=== PATIENT | male | born 1965 | race Caucasian/White ===

== ENCOUNTER 2022-01-18 14:39 | Emergency (ER) | payer BC, SELFPAY ==
[2022-01-18 14:40] VITALS: BP 178/105; PULSE 87; RESP 18; TEMP 37.1; O2SAT 98; BMI 31.1
--- NOTE | 2022-01-18 14:50 | XR_ITS ---
PROCEDURE INFORMATION: Exam: XR Chest Exam date and time: 01/18/2022 2:49 PM Age: 56 years old Clinical indication: Injury or trauma; Fall; Blunt trauma (contusions or hematomas); Patient HX: Patient fell yesterday due to difficulty ambulating caused by prior stroke. Left rib pain. TECHNIQUE: Imaging protocol: XR of the chest. Views: 2 views. COMPARISON: No relevant prior studies available. FINDINGS: Lungs: Nodular density superimposed upon the mid to lower thoracic spine in the region of the lower lobe. This measures approximately 6.5 mm in maximum dimensions. Although findings may correspond to a vessel seen on end, a pulmonary nodule could not be entirely excluded. Pleural spaces: Unremarkable. No pleural effusion. No pneumothorax. Heart/Mediastinum: Unremarkable. No cardiomegaly. Bones/joints: No evidence of acute osseous injury or significant degenerative change. IMPRESSION: 1. Nodular density superimposed upon the mid to lower thoracic spine. Findings may correspond to a vessel seen on end. A pulmonary nodule could not be excluded. 2. No evidence of acute intraparenchymal abnormality. 3. Recommend comparative review with previous radiographs.
--- NOTE | 2022-01-18 14:50 | XR_ITS ---
PROCEDURE INFORMATION: Exam: XR Left Ribs with PA Chest Exam date and time: 01/18/2022 2:49 PM Age: 56 years old Clinical indication: Injury or trauma; Fall; Rib area, left side; Blunt trauma; Patient HX: Patient fell yesterday due to difficulty ambulating due to prior stroke. Left rib pain. TECHNIQUE: Imaging protocol: XR Left ribs with PA chest. Views: 3 views COMPARISON: No relevant prior studies available. FINDINGS: Lungs: Unremarkable. No consolidation. Pleural spaces: Unremarkable. No pleural effusion. No pneumothorax. Heart/Mediastinum: Unremarkable. No cardiomegaly. Bones/joints: Unremarkable. IMPRESSION: No acute findings.
[2022-01-18 15:11] VITALS: BP 160/90; PULSE 87; RESP 18; O2SAT 98; BMI 31.1
--- NOTE | 2022-01-18 15:18 | HMH.EDUTC ---
[facility] [place] Disposition Clinical Impression: Rib contusion Qualifiers: Encounter type: initial encounter Laterality: left Qualified Code(s): S20.212A - Contusion of left front wall of thorax, initial encounter Disposition: Home, Self-Care Condition on Discharge: Good Instructions: DI for Rib Contusion, Ibuprofen Additional Instructions: *Ibuprofen catarina 6 hours with meal as needed for pain/inflammation if your doctor has said that you can take it *Not additional anti-inflammatory like motrin, aleve, advil with the above amount of ibuprofen. You can still take Tylenol every 4 hours as needed if you need something else for pain *Ice 20 minutes every 2 hours for the first 48 hours after the initial injury followed by moist heat every 20 minutes 3-4 times a day to affected area *Keep this area active, no movement leads to more stiffness, However take it easy and avoid heavy lifting pushing or pulling *Follow up with you family doctor if no improvement for further treatment Over the counter lidocaine patches may help with pain and discomfort Make sure to follow up with your Family Doctor for further evaluation and repeat chest xray Straight to ER if any life threatening symptoms Referrals: Provider,Sandra, [Primary Care Provider] - Sid Hugo MD [Physician] - Time of Disposition: 16:00 Medical Decision Making - Kane Inquiry Pt receiving controlled substance: No Kane was queried for this patient: No Vital Signs: 01/18/22 14:40 01/18/22 15:11 01/18/22 16:01 Temperature 98.7 F 98.7 F Temperature Source Oral Pulse Rate 87 Pulse Rate [Radial] 87 87 Respiratory Rate 18 18 18 Blood Pressure 135/80 Blood Pressure [Right Arm] 178/105 H 160/90 H Blood Pressure Mean [Right Arm] 129 113 02 Sat by Pulse Oximetry 98 98 Oxygen Delivery Method Room Air - Radiology Data #1 Image(s): Other (left ribs with chest) Image Reviewed: Yes I have reviewed radiologist's interpretation IMPRESSION: No acute findings. #2 Image(s): Chest Image Reviewed: Yes I have reviewed radiologist's interpretation IMPRESSION: 1. Nodular density superimposed upon the mid to lower thoracic spine. Findings may correspond to a vessel seen on end. A pulmonary nodule could not be excluded. 2. No evidence of acute intraparenchymal abnormality. 3. Recommend comparative review with previous radiographs. Medical Decision Narrative: Discussed with patient about transfer to the ED for CT of chest to R/O pulmonary nodule and patient declined states that he didnt have time today State that he will follow up for further testing and evaluation with PCP or get a new PCP that is local [facility] [place] HPI - General Stated complaint: AO 5 fall lt rib pain Time Seen by Provider: 01/18/22 15:19 Mode of Arrival: Ambulatory Source of Information: Patient Limitations: No Limitations Description of Symptoms (Recalled from Triage Doc. by RN): pt says that he fell down trying to go down steps and fell hitting a flower pot on the way down. he is complaining of left rib pain HEENT Symptoms (Recalled from RN notes): No Resp Symptoms (Recalled from RN notes): No Skin Symptoms (Recalled from RN notes): No MS Symptoms (Recalled from RN notes): Yes Functional Status (Recalled from RN notes): wnl - History of Present Illness Provider Complaint: Patient states that yesterday he was coming down the steps and he has been off balanced since having a stroke and he fell States that he hit his left ribs on a flower pot States that ever since he has been having pain in his left ribs when he moves or takes a deep breath so today when he was still having pain he came in Denies loc denies any other injury - Related Data Allergies Allergy/AdvReac Type Severity Reaction Status Date / Time No Known Allergies Allergy Verified 01/18/22 15:19 - Worker's Comp Is this a Worker's Comp case?: No [facility] History - Hepatitis A Screen Attestation statement:
[2022-01-18 16:01] VITALS: BP 135/80; PULSE 87; RESP 18; TEMP 37.1
== END 2022-01-18 16:03 | disposition home or self-care (01) ==
PROVIDERS: Emergency Provider Nurse Practitioner
DX: S20.212A Contusion of left front wall of thorax, initial encounter (principal); R07.81 Pleurodynia; Z86.73 Personal history of transient ischemic attack (TIA), and cerebral infarction without residual deficits; W10.9XXA Fall (on) (from) unspecified stairs and steps, initial encounter
CPT/HCPCS: 71046; 71101; 99213; G0463

== ENCOUNTER → 2022-04-07 06:17 | Outpatient (CLI) | payer BC, SELFPAY ==
[2022-04-06 18:27] LABS: Basophils # 0.2 K/mm3 (0-0.2); Basophils % 1.8 % (0.1-2.0); Eosinophils # 0.3 K/mm3 (0.0-0.4); Eosinophils % 2.7 % (0.1-12.0); Hematocrit 49.4 % (42.0-52.0); Hemoglobin 17.4 g/dL (14.1-18.0); Lymphocytes # 3.1 K/mm3 (0.7-4.5); Lymphocytes % 28.2 % (10-50); Mean Corpuscular HGB Conc 35.2 g/dL (31.8-35.4); Mean Corpuscular Hemoglobin 31.6 pg (27.0-31.2); Mean Corpuscular Volume 89.7 fl (80-94); Mean Platelet Volume 8.6 fl (7.4-10.4); Monocytes # 0.9 K/mm3 (0.1-1.0); Monocytes % 7.7 % (1.7-9.3); Neutrophils # 6.6 K/mm3 (1.8-7.8); Neutrophils % 59.6 % (37.0-80.0); Platelet Count 300 K/mm3 (142-424); Red Cell Distribution Width 13.5 % (11.5-17.5)
[2022-04-06 18:33] LABS: Alanine Aminotransferase 34 U/L (12-78); Albumin Level 4.2 g/dl (3.5-5.0); Albumin/Globulin Ratio 1.3 (1.1-1.8); Alkaline Phosphatase 93 U/L (38-126); Anion Gap 9.6 mEq/L (5-15); Aspartate Amino Transferase 33 U/L (17-59); Bilirubin,Total 0.5 mg/dl (0.2-1.3); Blood Urea Nitrogen 12 mg/dl (9-20); Calcium 9.9 mg/dl (8.4-10.2); Carbon Dioxide 31 mmol/L (22.0-30.0); Chloride 101 mmol/L (98-107); Chol/HDL Ratio 5.4 (1-3.5); Cholesterol 179 mg/dl (140-200); Estimated Glomerular Filt Rate 88 ml/min (>60); GFR (African American) 106 ML/MIN (>60); Globulin 3.2 g/dL (1.3-3.2); Glucose 134 mg/dl (74-100); HDL Cholesterol 33 mg/dl (40-60); Potassium 4.6 mmoL/L (3.5-5.1); Sodium 137 mmol/L (136-145); Total Protein,Serum 7.4 g/dl (6.3-8.2); Triglycerides 223 mg/dl (30-150); VLDL Cholesterol 45 mg/dL (0-40)
[2022-04-06 18:44] LABS: Direct LDL Cholesterol 108.47 mg/dL (100-129)
[2022-04-06 18:50] LABS: 25-OH Vitamin D, Total 21.1 ng/mL (30-100)
[2022-04-06 18:51] LABS: Free T4 (Free Thyroxine) 1.12 ng/dl (0.78-2.19)
[2022-04-06 19:04] LABS: Prostate Specific Ag Screen 2.1 ng/ml (0.0-4.0); Thyroid Stimulating Hormone 2.24 uIU/mL (0.465-4.68)
== END ==
PROVIDERS: PCP Emergency Medicine; Visit Provider Emergency Medicine
DX: I10 Essential (primary) hypertension (principal); E55.9 Vitamin D deficiency, unspecified; Z79.899 Other long term (current) drug therapy; Z12.5 Encounter for screening for malignant neoplasm of prostate
CPT/HCPCS: 80053; 80061; 82306; 84439; 84443; 85025; G0103

== ENCOUNTER → 2022-04-16 13:42 | Outpatient (CLI) | payer BC, SELFPAY ==
[2022-04-16 15:12] LABS: Hemoglobin A1C 5.6 % (4.0-6.0)
== END ==
PROVIDERS: PCP Emergency Medicine; Visit Provider Emergency Medicine
DX: R73.09 Other abnormal glucose (principal)
CPT/HCPCS: 36415; 83036

== ENCOUNTER → 2022-07-15 08:50 | Outpatient (CLI) | payer BC, SELFPAY ==
--- NOTE | 2022-07-15 08:51 | CA_ITS ---
FINAL REPORT TECHNIQUE: Grayscale, color Doppler and duplex Doppler ultrasound of the kidneys, aorta and renal arteries was performed. Multiple velocities were measured. CLINICAL HISTORY: HTN,CVA FINDINGS: Aorta velocity: 98 cm/sec Right kidney: 11.5 cm. No evidence of hydronephrosis or mass. Right intrarenal RI: 0.67 Right renal artery velocity: 139 cm/sec. Right RAR (Renal artery-Aortic Ratio): 1.4 Left Kidney: 12.0 cm. No evidence of hydronephrosis or mass. Left intrarenal RI: 0.55 Left renal artery velocity: 140 cm/sec. Left RAR (Renal Artery-Aortic Ratio): 1.4 IMPRESSION: No evidence of significant renal artery stenosis. CT angiogram or postcontrast MR angiogram would be more sensitive for evaluation of possible renal artery stenosis. Reviewed, Interpreted and Dictated by Stanislav Restrepo III, MD Transcribed by Zenaida Pastor Authenticated and [facility]
== END ==
PROVIDERS: PCP Emergency Medicine; Visit Provider Emergency Medicine
DX: I10 Essential (primary) hypertension (principal)
CPT/HCPCS: 93976

== ENCOUNTER 2022-09-18 14:14 | Emergency (ER) | payer BC, SELFPAY ==
[2022-09-18] VITALS (11 sets, daily range): BP systolic 104–124; BP diastolic 63–88; PULSE 76–112; RESP 13–20; TEMP 36.7; O2SAT 95–100; BMI 31.1
--- NOTE | 2022-09-18 14:16 | ECG_ITS ---
APPROVED REPORT Exam: Resting ECG HR:108 bpm ECG Measurements Heart Rate 108 AXES NE 133 P 26 QRSd 89 QRS 57 QT 315 T 70 QTc 379 Conclusion SINUS TACHYCARDIA POSSIBLE LEFT ATRIAL ENLARGEMENT [-0.1mV P-WAVE IN V1/V2] SEPTAL MYOCARDIAL INFARCTION , PROBABLY RECENT [40+ ms Q WAVE IN V1/V2] LATERAL MYOCARDIAL INFARCTION , PROBABLY RECENT [40+ ms Q WAVE AND/OR ST/T ABNORMALITY IN I/aVL/V5/V6] ACUTE [place] UNCONFIRMED REPORT Electronically signed by : Anastacio Dubon MD 09/18/2022 21:11:09
--- NOTE | 2022-09-18 14:26 | XR_ITS ---
FINAL REPORT CLINICAL HISTORY: SHORTNESS OF BREATH COMPARISON: 01/18/2022 FINDINGS: The heart size is normal. The mediastinum is normal. There is no focal infiltrate or edema. There are no pleural effusions. There is no pneumothorax. IMPRESSION: No acute cardiopulmonary process Reviewed, Interpreted and Dictated by Roel Rodriguez MD Transcribed by Elodia Bernard Authenticated and [facility]
[2022-09-18 14:41] LABS: Chloride 106 mmol/L (98-107)
[2022-09-18 14:42] LABS: Potassium 4.3 mmoL/L (3.5-5.1); Sodium 138 mmol/L (136-145)
[2022-09-18 14:44] LABS: Alanine Aminotransferase 30 U/L (12-78); Alkaline Phosphatase 78 U/L (38-126); Aspartate Amino Transferase 38 U/L (17-59); Bilirubin,Total 0.3 mg/dl (0.2-1.3); Blood Urea Nitrogen 32 mg/dl (9-20); Creatinine Clearance Estimated 125 mL/min (50-200); Estimated Glomerular Filt Rate 78 ml/min (>60); GFR (African American) 94 ML/MIN (>60)
[2022-09-18 14:45] LABS: Albumin Level 3.8 g/dl (3.5-5.0); Albumin/Globulin Ratio 1.4 (1.1-1.8); Anion Gap 10.3 mEq/L (5-15); Calcium 8.3 mg/dl (8.4-10.2); Carbon Dioxide 26 mmol/L (22.0-30.0); Globulin 2.8 g/dL (1.3-3.2); Glucose 124 mg/dl (74-100); Total Protein,Serum 6.6 g/dl (6.3-8.2)
[2022-09-18 14:58] LABS: Troponin I 3.84 ng/ml (0.00-0.034)
[2022-09-18 15:07] LABS: Basophils # 0.1 K/mm3 (0-0.2); Eosinophils # 0.3 K/mm3 (0.0-0.4); Eosinophils % 2.4 % (0.1-12.0); Hematocrit 31.5 % (42.0-52.0); Lymphocytes # 3.6 K/mm3 (0.7-4.5); Lymphocytes % 29.8 % (10-50); Mean Corpuscular HGB Conc 34.8 g/dL (31.8-35.4); Mean Platelet Volume 8.2 fl (7.4-10.4); Monocytes # 0.7 K/mm3 (0.1-1.0); Monocytes % 5.6 % (1.7-9.3); Neutrophils # 7.3 K/mm3 (1.8-7.8); Neutrophils % 61.1 % (37.0-80.0); Platelet Count 403 K/mm3 (142-424); Red Blood Count 3.43 M/mm3 (4.60-6.20); Red Cell Distribution Width 13.7 % (11.5-17.5)
--- NOTE | 2022-09-18 15:07 | HMH.EDGENADL ---
Discharge Plan Disposition Patient Disposition: Home, Self-Care Condition: Good Prescriptions Prescriptions: New metoprolol succinate 100 mg tablet extended release 24 hr 100 mg PO DAILY Qty: 30 0RF No Action rosuvastatin 40 mg tablet 40 mg PO DAILY Brilinta 90 mg tablet 90 mg PO BID metoprolol tartrate 25 mg tablet 12.5 mg PO BID aspirin 81 mg tablet,delayed release (DR/EC) 81 mg PO DAILY hydrocodone-acetaminophen 5-325 mg tablet 1 tab PO BID Qty: 60 0RF hydrochlorothiazide 12.5 mg tablet 12.5 mg PO QAM Qty: 30 2RF cholecalciferol (vitamin D3) 1,250 mcg (50,000 unit) capsule 1,250 mcg PO WEEKLY Qty: 12 3RF cholecalciferol (vitamin D3) 50 mcg (2,000 unit) capsule 50 mcg PO DAILY Qty: 90 0RF lisinopril 20 mg tablet See Rx Instructions .ROUTE .COMPLEX Qty: 30 3RF Dose Instruction: TAKE ONE TABLET BY MOUTH EVERY MORNING Rx Instructions: TAKE ONE TABLET BY MOUTH EVERY MORNING amlodipine 5 mg tablet See Rx Instructions .ROUTE .COMPLEX Qty: 30 3RF Dose Instruction: TAKE ONE TABLET BY MOUTH AT BEDTIME Rx Instructions: TAKE ONE TABLET BY MOUTH AT BEDTIME Referrals Follow up/Referrals: Isacc Malone MD [Primary Care Provider] - See instructions Activity Restrictions/Add. Instructions Additional Instructions/Restrictions: Stop taking the metoprolol tartrate that she take currently. Tomorrow start taking metoprolol succinate 100 mg in the morning. Continue taking all other medications as prescribed. Follow-up with Dr. Husain in the office as instructed by him. Additional instructions for CHEST PAIN: See your physician as soon as possible for further evaluation. Return immediately if worsening chest pain, vomiting, shortness of breath, fever, coughing of blood. Clinical Impressions Clinical Impression: Chest pain Instructions Patient Instructions: DI for Chest Pain Discharge ED Provider: Hernando Silverman Adult [facility] General Chief complaint: Weakness Stated complaint: chest pain Time Seen by Provider: 09/18/22 15:00 Mode of Arrival: EMS Limitations: No Limitations Description of Symptoms (Recalled from ER Triage Doc. by RN): PT BROUGHT IN VIA EMS FOR SHORTNESS OF BREATH, DIZZINESS UPON STANDING THAT BEGAN YESTERDAY. PT HAD 2 STENTS PLACED ON 09/12/2022. PT STARTED ON NEW MEDS 2 DAYS AGO BUT DOES NOT KNOW NAMES. PT STATES HE HAD A CARDIOLOGY FOLLOW-UP TODAY BUT WAS UNABLE TO DRIVE History of Present Illness HPI narrative: Patient is brought in by EMS. States that he has chest discomfort and lightheadedness, shortness of breath that began yesterday evening and has been constant since. He says the chest discomfort is mild, like a blanket laying on his chest. Recently had an [place] requiring 2 stents on . He was in [facility] at the time and was hospitalized there and discharged the next day. States that he has an appointment to see Dr. Husain for follow-up today at 11 AM, but did not make it because of his symptoms. He called the office to reschedule but they told him to call 911 and come to the emergency room. He has a prior history of stroke 6 years ago that left him with some mild left-sided weakness. He has been on Xarelto ever since then. He also takes low-dose aspirin, but has not taken any of his medicines today. He is treated for hypertension and hyperlipidemia. He does not have diabetes. He is a smoker. Related Data Home Medications Medication Instructions Recorded Confirmed aspirin 81 mg tablet,delayed 81 mg PO DAILY 09/16/22 09/16/22 release metoprolol tartrate 25 mg tablet 12.5 mg PO BID 09/16/22 09/16/22 rosuvastatin 40 mg tablet 40 mg PO DAILY 09/16/22 09/16/22 ticagrelor 90 mg tablet (Brilinta) 90 mg PO BID 09/16/22 09/16/22 Previous Rx's Medication Instructions Recorded cholecalciferol (vitamin D3) 1,250 1,250 mcg PO WEEKLY #12 caps 04/15/22 mcg (50,
--- NOTE | 2022-09-18 15:07 | PC.NURSE ---
Cardiology has been called for consult
--- NOTE | 2022-09-18 15:09 | PC.NURSE ---
[facility] has been called for records from last visit when stents were placed. They are faxing them now
--- NOTE | 2022-09-18 15:16 | PC.NURSE ---
on the phone with Dr. Husain
[2022-09-18 15:18] LABS: Coronavirus 19, PCR Not Detected (NotDetected); Influenza A, PCR Not Detected (NotDetected); Influenza B, PCR Not Detected (NotDetected)
--- NOTE | 2022-09-18 15:19 | PC.NURSE ---
DR GARRIDO AT BEDSIDE
--- NOTE | 2022-09-18 15:19 | PC.NURSE ---
Dr Husain asked for vascular to do an echo , they were advised
--- NOTE | 2022-09-18 15:20 | PC.NURSE ---
Vascular lab has been called
--- NOTE | 2022-09-18 15:30 | EXP.CARD.CON ---
History of Present Illness History of Present Illness Consult date: 09/18/22 Requesting physician: Hernando Silverman Consult reason: chest pain Chief complaint: weakness, chest pain, shortness of breath Additional Medical History:: Significant past medical history Coronary artery disease with recent stenting in [facility] over the holidays-trying to obtain medical records Prior CVA Hypertension Hyperlipidemia Smoker History of present illness: From ER note:Patient is brought in by EMS.? States that he has chest discomfort and lightheadedness, shortness of breath that began yesterday evening and has been constant since.? He says the chest discomfort is mild, like a blanket laying on his chest.? Recently had an [place] requiring 2 stents on .? He was in [facility] at the time and was hospitalized there and discharged the next day.? States that he has an appointment to see Dr. Husain for follow-up today at 11 AM, but did not make it because of his symptoms.? He called the office to reschedule but they told him to call 911 and come to the emergency room. He has a prior history of stroke 6 years ago that left him with some mild left-sided weakness.? He has been on Xarelto ever since then.? He also takes low-dose aspirin, but has not taken any of his medicines today.? He is treated for hypertension and hyperlipidemia.? He does not have diabetes.? He is a smoker. Upon presentation to ER EKG is Sinus tach with a rate of 108. Labs as follow: WBC 12, hemoglobin 11, sodium 138, potassium 4.3, creatinine 1, troponin 3.84. Chest x-ray negative for acute cardiopulmonary process. Patient was evaluated in the emergency department per Dr. Husain (cardiology) and EKG was reviewed. He does not feel that patient is having an NSTEMI, thinks elevated troponin is resolving from prior [place] and symptoms could be related to medications, specifically under dosing of beta-suzie. Echo and repeat troponin pending. Patient endorses generalized weakness and chest pressure. [facility] Disclaimer: The information contained in this section may have been updated after the patient was seen, as this information can be updated by other users. Social History Smoking Status: Current every day smoker tobacco type: cigarettes packs per day: 2 alcohol intake: never current occupational status: disabled Travel in the last 8 weeks: None Review of Systems Constitutional Constitutional: Denies headache(s) and Reports weakness ENT Ears, Nose, Mouth, and Throat: Denies headache(s) *Cardiovascular Cardiovascular: Reports chest pain *Musculoskeletal Musculoskeletal: Denies numbness *Neurologic Neurologic: Denies headache(s), Denies numbness and Reports weakness Exam Data for Last 24 hours Vital signs and Labs for Last 24 Hours: Temp Pulse Resp BP Pulse Ox 98.1 F 102 H 13 120/81 100 09/18/22 14:14 09/18/22 15:00 09/18/22 15:00 09/18/22 15:00 09/18/22 15:00 Laboratory Results - last 24 hr 09/18/22 14:20: WBC 12.0 H, RBC 3.43 L, Hgb 11.0 L, Hct 31.5 L, MCV 92.0, MCH 32.0 H, MCHC 34.8, RDW 13.7, Plt Count 403, MPV 8.2, Neut % (Auto) 61.1, Lymph % (Auto) 29.8, Murray % (Auto) 5.6, Eos % (Auto) 2.4, Baso % (Auto) 1.0, Neut # (Auto) 7.3, Lymph # (Auto) 3.6, Murray # (Auto) 0.7, Eos # (Auto) 0.3, Baso # (Auto) 0.1 09/18/22 14:20: Sodium 138, Potassium 4.3, Chloride 106, Carbon Dioxide 26, Anion Gap 10.3, BUN 32 H, Creatinine 1.00, Estimated Creat Clear 125, Estimated GFR 78, Est GFR ( Amer) 94, Glucose 124 H, Calcium 8.3 L, Total Bilirubin 0.3, AST 38, ALT 30, Alkaline Phosphatase 78, Troponin I 3.84 H, Total Protein 6.6, Albumin 3.8, Globulin 2.8, Albumin/Globulin Ratio 1.4 I & O for Last 24 hours: Intake & Output 09/15/22 09/16/22 09/17/22 09/18/22 23:59 23:59 23:59 23:59 Weight 230 lb Constitutional Constitutional: chronically ill appearing *Routine Respiratory Exam Respir
--- NOTE | 2022-09-18 15:33 | CA_ITS ---
APPROVED REPORT EXAM: Comprehensive 2D, Doppler, and color-flow Echocardiogram [place] Instructor: Brit Frank RVT Ht: 6 ft 0 in Wt: 230lbs BSA: 2.26 BP: 120/81 mmHg Indications: CP,SOA,S/P MN WITH STENT NEW YEARS HUNTER,TACHYCARDIA,HX CVA 2D Dimensions LVOT 2.55 cm (M/F) 1.5-2.5 LA Volume 32.50 mL LA Volume Index 14.38 mL/m2 (M/F) 16-34 M-Mode Dimensions RVDd 2.55 cm (0.9-2.6) LA Diam 2.71 cm (1.9-4.0) LVDd 3.87 cm (3.5-5.7) Ao Diam 4.20 cm (2.0-3.7) LVDs 2.12 cm (3.5-5.7) IVSd 1.57 cm (0.6-1.1) PWd 0.55 cm (0.6-1.1) EF (Teich) 77.10% FS 45.20% EDV (Teich) 64.70 mL TAPSE 2.17 (<1.7) ESV (Teich) 14.80 mL LV Diastology E Decel Time 203.00 (160-240 msec) E/A Ratio 0.6 MED E' 3.40 (< 7 cm/sec) E'/MED E' Ratio 13.59 (>14) LAT E' 4.50 (<10 cm/sec) E/LAT E' Ratio 10.27 (>14) Aortic Valve AO Peak GR. 4.20 mmHg Mitral Valve MV E Max Gino. 46.00 (40-130 cm/s) MV A Velocity 81.00 (40-130 cm/s) E/A Ratio 0.57 MV Decel. Time 203.00 (160-240 ms) MV PHT 60.00 ms Pulmonary Valve PV Peak Velocity 75.00 (50-150 cm/s) Left Ventricle Left atrium is mildly enlarged, left ventricle is normal size mild concentric left ventricular hypertrophy, estimated ejection fraction 55% with no regional wall motion abnormality, grade 1 diastolic dysfunction seen without tissue Doppler evidence of raise left atrial pressure. Right Ventricle Right atrium and right ventricle are qualitatively mildly enlarged with normal contractility. Aortic Valve Aortic valve is minimally thickened and fibrosed there is no aortic stenosis aortic insufficiency. Mitral Valve Mitral valve is grossly normal, there is trace mitral regurgitation. Tricuspid Valve Tricuspid grossly normal, there is trace tricuspid regurgitation, tricuspid regurgitation jet velocity is inadequate for calculation of the right ventricular systolic pressure. Pulmonic Valve Pulmonic valve is poorly visualized. Great Vessels Aortic root is mildly enlarged measuring 4.1 cm. Inferior vena cava is normal 7 normal inspiratory collapse. Pericardium No significant pericardial effusion noted. Conclusion 1. Mild biatrial enlargement, normal left ventricular size mild concentric left ventricular hypertrophy, estimated ejection fraction 55% with no regional wall motion abnormality, grade 1 diastolic dysfunction seen without tissue Doppler evidence of raise left atrial pressure. 2. Mildly enlarged aortic root measuring 4.1 cm, there is no aortic stenosis aortic insufficiency. 3. Trace mitral and tricuspid regurgitation. 4. No significant pericardial effusion noted. 5. Inferior vena cava is normal size with normal inspiratory collapse. Electronically signed by : Sage Flaherty MD 09/18/2022 16:30:23
--- NOTE | 2022-09-18 15:50 | PC.NURSE ---
ECHO AT BEDSIDE
[2022-09-18 18:32] LABS: Troponin I 3.28 ng/ml (0.00-0.034)
--- NOTE | 2022-09-18 18:38 | PC.NURSE ---
DR. RIVERA AT BEDSIDE TO UPDATE PT
== END 2022-09-18 19:00 | disposition home or self-care (01) ==
PROVIDERS: Emergency Provider Emergency Medicine; PCP Emergency Medicine
DX: I25.10 Atherosclerotic heart disease of native coronary artery without angina pectoris (principal); R77.8 Other specified abnormalities of plasma proteins; R07.9 Chest pain, unspecified
CPT/HCPCS: 36415; 71045; 80053; 84484; 85025; 93005; 93306; C9803; U0003; U0005

== ENCOUNTER 2022-09-20 13:34 | Inpatient (IN) | payer BC, SELFPAY ==
[2022-09-20] VITALS (38 sets, daily range): BP systolic 97–183; BP diastolic 56–100; PULSE 89–123; RESP 14–22; TEMP 36.4–37.4; O2SAT 95–100; BMI 31.1; BMI 4491.3; BMI 30.5
--- NOTE | 2022-09-20 | IR_ITS ---
APPROVED REPORT Patient Location: Emergent Stakeholder Manager: ROE Dupree RT (R) PROCEDURES Left heart catheterization Left ventriculogram Selective coronary angiogram Mechanical thrombectomy to the ramus intermedius followed by POBA Right femoral vein central access Emergent transfusion of 2 units of trauma blood INDICATION Acute ST elevation myocardial infarction, Critical anemia hemoglobin 4.7 Informed consent was obtained prior to the procedure. COMPLICATIONS None Estimated Blood Loss: less than 10 ml TECHNIQUE One percent lidocaine used to anesthetize the right anterior aspect of the wrist. The right radial artery was accessed via the Seldinger technique. A 6 Peruvian sheath was placed in the right radial artery. 2.5 mg of verapamil, 800 mcg of nitroglycerin, 1mg Lidocaine and 5000 U Heparin were given through the arterial sheath. The papa catheter was also used to perform selective coronary angiography. Therapeutic heparin was already been administered and a Choice PT guidewire was used to traverse the occlusion of the ramus intermedius. The penumbra was advanced for mechanical aspiration. Following this a 2 mm x 12 mm balloon was deployed at 20 doc up and down the ramus intermedius. INOCENTE-3 flow was restored. A 2.5 x 15 mm balloon was then deployed at 24 doc up and down the stent. Patient had a critical hemoglobin of 4.7 per blood gas therefore 1% lidocaine was used anesthetize the right groin and the right femoral vein was accessed via the Salinger technique. A 6 Peruvian sheath was placed in the right femoral vein. 2 units of trauma blood were ordered for immediate transfusion. 4 units of additional blood were ordered for type and cross ANGIOGRAPHIC RESULTS The left main artery Normal The left anterior descending artery Normal The circumflex artery Gives rise to a large ramus intermedius with a stent in its ostial proximal segment which is thrombosed. Following plain old balloon angioplasty and mechanical thrombectomy there was INOCENTE-3 flow down the widely patent stent. The circumflex artery itself is mild atheromatous The right coronary artery Dominant with mild atheromatous The BELL ventriculogram reveals Mild anterior wall hypokinesis estimate ejection fraction 45% The left ventricular end-diastolic pressure [address] elevation myocardial infarction Successful mechanical thrombectomy followed by plain old balloon angioplasty restoring INOCENTE-3 flow Acute anemia with a hemoglobin of 4.7 Successful placement of right femoral vein central line PLAN 1. Continue Brilinta 90 twice daily plus aspirin 81 mg daily 2. 4 units transfusion using type and cross 3. Stat CAT scan of the abdomen. Patient is status post right femoral angiography and access from an outside hospital with a recent stent. I am concerned about retroperitoneal hematoma/bleed 4. Supportive care 5. LDL less than 55 to be 2 with high intensity statin 6. Continuous telemetry 7. Discontinue Xarelto Electronically signed by : Petr Husain MD 09/20/2022 15:19:35
--- NOTE | 2022-09-20 13:34 | PC.NURSE ---
DG WEATHERS SPEAKING WITH DR GARRIDO AT THIS TIME. HOUSE AT BEDSIDE. MILK CONDENSER TEAM PAGED. PT PREPPED FOR MILK CONDENSER.
--- NOTE | 2022-09-20 13:38 | ECG_ITS ---
APPROVED REPORT Exam: Resting ECG HR:113 bpm ECG Measurements Heart Rate 113 AXES ME 112 P 43 QRSd 90 QRS 82 QT 315 T 39 QTc 382 Conclusion SINUS TACHYCARDIA WITH SHORT ME INTERVAL SEPTAL MYOCARDIAL INFARCTION , POSSIBLY ACUTE [40+ ms Q WAVE IN V1/V2] LATERAL MYOCARDIAL INFARCTION , PROBABLY RECENT [40+ ms Q WAVE AND/OR ST/T ABNORMALITY IN I/aVL/V5/V6] ACUTE [place] UNCONFIRMED REPORT Electronically signed by : Anastacio Dubon MD 09/20/2022 16:55:09
[2022-09-20 14:11] LABS: Basophils # 0.1 K/mm3 (0-0.2); Basophils % 0.3 % (0.1-2.0); Eosinophils % 0.1 % (0.1-12.0); Lymphocytes # 4.5 K/mm3 (0.7-4.5); Lymphocytes % 13.7 % (10-50); Mean Corpuscular HGB Conc 34.4 g/dL (31.8-35.4); Mean Corpuscular Hemoglobin 32.6 pg (27.0-31.2); Mean Corpuscular Volume 94.6 fl (80-94); Mean Platelet Volume 8.5 fl (7.4-10.4); Monocytes # 1.6 K/mm3 (0.1-1.0); Monocytes % 4.9 % (1.7-9.3); Neutrophils # 26.6 K/mm3 (1.8-7.8); Neutrophils % 81.1 % (37.0-80.0); Platelet Count 477 K/mm3 (142-424); Red Blood Count 1.65 M/mm3 (4.60-6.20); Red Cell Distribution Width 16.3 % (11.5-17.5); White Blood Count 32.9 K/mm3 (4.8-10.8)
--- NOTE | 2022-09-20 14:14 | PC.NURSE ---
AIR BAG BUFFER READY FOR PT. HOUSE (DENIZ) AWARE AND AGREES TO TRANSPORT PT.
[2022-09-20 14:16] LABS: Hematocrit 15.6 % (42.0-52.0)
--- NOTE | 2022-09-20 14:17 | PC.NURSE ---
LAB CALLED WITH CRITICAL VALUES. HEMOGLOBIN 5.4 AND HEMATOCRIT 15.6. HOUSE AWARE. ER AWARE. CHAIN MACHINE OPERATOR AWARE.
[2022-09-20 14:18] LABS: MANUAL DIFFERENTIAL MANUAL DIFFERENTIAL (MANUAL DIFF)
[2022-09-20 14:19] LABS: Hemoglobin 5.4 g/dL (14.1-18.0)
--- NOTE | 2022-09-20 14:19 | PC.NURSE ---
Addendum entered by Ashley Hopkins RN 09/20/22 14:20: NOTIFIED AT 13:21 Original Note: [facility] NOTIFIED STAFF AND DR GARRIDO ABOUT STEMI. THEY'RE IN ROUTE WITH PT.
[2022-09-20 14:20] LABS: Chloride 99 mmol/L (98-107); Potassium 4.2 mmoL/L (3.5-5.1); Sodium 132 mmol/L (136-145)
[2022-09-20 14:22] LABS: INR 1.19 (0.9-1.1); Prothrombin Time 12.7 seconds (10.1-12.5)
[2022-09-20 14:23] LABS: Anion Gap 15.2 mEq/L (5-15); Blood Urea Nitrogen 44 mg/dl (9-20); Calcium 8.2 mg/dl (8.4-10.2); Carbon Dioxide 22 mmol/L (22.0-30.0); Creatinine Clearance Estimated -81 mL/min (50-200); Estimated Glomerular Filt Rate 70 ml/min (>60); GFR (African American) 84 ML/MIN (>60); Glucose 207 mg/dl (74-100)
[2022-09-20 14:37] LABS: ABG Base Excess -11.8 mmol/L (-2.4-2.3); ABG HCO3 13.5 mmhg (22.0-26.0); ABG Oxygen Saturation 100 % (90-100); ABG PCO2 23.7 mmhg (35.0-45.0); ABG PH 7.37 mmol/L (7.35-7.45); ABG PO2 210.3 mmhg (80-100); ABG TCO2 14.2 mmhg (23-27)
[2022-09-20 14:41] LABS: Troponin I 0.92 ng/ml (0.00-0.034)
--- NOTE | 2022-09-20 14:50 | SUR.OPER ---
1st unit of blood transfusing, verified with [email or web address]
--- NOTE | 2022-09-20 15:03 | SUR.OPER ---
1st unit of blood end, 2nd unit begin
--- NOTE | 2022-09-20 15:09 | CT_ITS ---
PROCEDURE INFORMATION: Exam: CT Abdomen And Pelvis Without Contrast Exam date and time: 09/20/2022 3:32 PM Age: 56 years old Clinical indication: Screening exam; Other: Rule out retroperitoneal bleed. Post heart cath; Additional info: Rp bleedi TECHNIQUE: Imaging protocol: Computed tomography of the abdomen and pelvis without contrast. Radiation optimization: All CT scans at this facility use at least one of these dose optimization techniques: automated exposure control; mA and/or kV adjustment per patient size (includes targeted exams where dose is matched to clinical indication); or iterative reconstruction. COMPARISON: US CA RENAL ARTERY DUPLEX 07/15/2022 8:54 AM FINDINGS: Liver: Normal. No mass. Gallbladder and bile ducts: Normal. No calcified stones. No ductal dilation. Pancreas: Normal. No ductal dilation. Spleen: Normal. No splenomegaly. Adrenal glands: Normal. No mass. Kidneys and ureters: Normal. No hydronephrosis. Stomach and bowel: Unremarkable. No obstruction. No mucosal thickening. Appendix: No evidence of appendicitis. Intraperitoneal space: Unremarkable. No free air. No significant fluid collection. Vasculature: Unremarkable. No abdominal aortic aneurysm. Lymph nodes: Unremarkable. No enlarged lymph nodes. Urinary bladder: Unremarkable as visualized. Reproductive: Unremarkable as visualized. Bones/joints: Unremarkable. No acute fracture. Soft tissues: Unremarkable. Other findings: Visualized thorax is grossly unremarkable. IMPRESSION: Unremarkable unenhanced CT scan. No evidence for retroperitoneal hemorrhage.
[2022-09-20 15:15] LABS: Hypochromasia 1+; Lymphocytes % 12 % (10-50); Monocytes % 3 % (2-9); Neutrophils % 85 % (42-76); Nucleated Red Blood Cells 1; Platelet Estimate Slight Increase; Total Cells Counted 100
--- NOTE | 2022-09-20 15:19 | SUR.OPER ---
2nd unit of emergent PRBC end
--- NOTE | 2022-09-20 15:39 | PC.NURSE ---
arrived to floor by stretcher from labor/excavator
[2022-09-20 15:59] LABS: CATHL Activated Clotting Time 264 SEC (74-125)
--- NOTE | 2022-09-20 16:00 | SUR.OPER ---
Central line sheath removed [id number], no hematoma or bleeding noted, site observed by Lana Sutton RN.
--- NOTE | 2022-09-20 16:39 | SUR.OPER ---
1530 patient taken emergently to CT per Dr. Husain to check for bleed r/t to hgb 5.4 prior to coming to cathlab.
--- NOTE | 2022-09-20 16:46 | SUR.OPER ---
Notified Dr. Benita Husain that Dr. Amador Husain wanted to initiate protonix, Shelli Husain MD stated he would order it.
--- NOTE | 2022-09-20 16:51 | EXP.HP ---
History of Present Illness *Admission Date: 09/20/22 *Reason for visit:: Anxiety *History of present illness: 56-year-old man with recent PCI presents to the emergency department due to anxiety attacks. He was found to have a STEMI and was taken to the [facility] And received mechanical thrombectomy followed by balloon angioplasty. Patient was discharged from the [facility] to stepdown unit. Further history unable to be obtained due to sedation from procedure [facility] Disclaimer: The information contained in this section may have been updated after the patient was seen, as this information can be updated by other users. Social History Smoking Status: Never smoker alcohol intake: never current occupational status: disabled Travel in the last 8 weeks: None Review of Systems Review of Systems Review of systems:: unable to obtain Meds Home Medications and Allergies Home Medications Medication Instructions Recorded Confirmed Type aspirin 81 mg tablet,delayed 81 mg PO DAILY HEART HEALTH 09/16/22 09/20/22 History release metoprolol tartrate 25 mg tablet 12.5 mg PO BID Hypertension 09/16/22 09/20/22 History rosuvastatin 40 mg tablet 40 mg PO DAILY Cholesterol 09/16/22 09/20/22 History ticagrelor 90 mg tablet (Brilinta) 90 mg PO BID [employer] 09/16/22 09/20/22 History amlodipine 5 mg tablet 5 mg PO HS Hypertension 09/20/22 09/20/22 History cholecalciferol (vitamin D3) 1,250 1,250 mcg PO WEEKLY Supplement 09/20/22 09/20/22 History mcg (50,000 unit) capsule cholecalciferol (vitamin D3) 50 50 mcg PO DAILY Supplement 09/20/22 09/20/22 History mcg (2,000 unit) capsule hydrochlorothiazide 12.5 mg tablet 12.5 mg PO DAILY Fluid 09/20/22 09/20/22 History hydrocodone 5 mg-acetaminophen 325 1 tab PO BID Pain 09/20/22 09/20/22 History mg tablet lisinopril 20 mg tablet 20 mg PO DAILY Hypertension 09/20/22 09/20/22 History New Prescriptions to Start Prescriptions: Allergies Allergy/AdvReac Type Severity Reaction Status Date / Time No Known Allergies Allergy Verified 09/16/22 11:16 Exam Data for Last 24 hours Vital signs and Labs for Last 24 Hours: Temp Pulse Resp BP Pulse Ox 97.9 F 107 H 16 128/84 100 09/20/22 16:30 09/20/22 16:30 09/20/22 16:30 09/20/22 16:30 09/20/22 16:30 Laboratory Results - last 24 hr 09/20/22 13:49: WBC 32.9 H* D, RBC 1.65 L* D, Hgb 5.4 L*, Hct 15.6 L*, MCV 94.6 H, MCH 32.6 H, MCHC 34.4, RDW 16.3, Plt Count 477 H, MPV 8.5, Neut % (Auto) 81.1 H, Lymph % (Auto) 13.7, [place] % (Auto) 4.9, Eos % (Auto) 0.1, Baso % (Auto) 0.3, Neut # (Auto) 26.6 H, Lymph # (Auto) 4.5, [place] # (Auto) 1.6 H, Eos # (Auto) 0.0, Baso # (Auto) 0.1, Total Counted 100, Neutrophils % (Manual) 85 H, Lymphocytes % (Manual) 12, Monocytes % (Manual) 3, Nucleated RBCs 1, Platelet Estimate Slight increase, RBC Morphology Not Reportable, Hypochromasia 1+ 09/20/22 13:49: PT 12.7 H, INR 1.19 H 09/20/22 13:49: Sodium 132 L, Potassium 4.2, Chloride 99, Carbon Dioxide 22, Anion Gap 15.2 H, BUN 44 H D, Creatinine 1.10, Estimated Creat Clear -81 L, Estimated GFR 70, Est GFR ( Amer) 84, Glucose 207 H, Calcium 8.2 L, Troponin I 0.92 H 09/20/22 14:00: Blood Type O Positive, Antibody Screen Negative, Crossmatch (AHG) See Detail 09/20/22 14:35: ABG pH 7.37, ABG pCO2 23.7 L, ABG pO2 210.3 H, ABG HCO3 13.5 L, ABG Total CO2 14.2 L, ABG O2 Saturation 100, ABG Base Excess -11.8 L 09/20/22 14:45: Blood Type Confirm O Positive 09/20/22 15:28: Activated Clotting Time 264 H* I & O for Last 24 hours: Intake & Output 09/17/22 09/18/22 09/19/22 09/20/22 23:59 23:59 23:59 23:59 Intake Total 0 / 0 Balance 0 / 0 Weight 102.058 kg Constitutional Constitutional: no acute distress, morbidly obese, chronically ill appearing, disheveled, combative and somnolent *Routine HEENT Exam Head: Present normocephalic and atraumatic Eye: Present EOMI ENT: Presen
[2022-09-20 18:04] LABS: Coronavirus 19, PCR Not Detected (NotDetected); Influenza A, PCR Not Detected (NotDetected); Influenza B, PCR Not Detected (NotDetected)
[2022-09-20 19:25] LABS: Iron 186 ug/dL (49-181)
[2022-09-20 19:26] LABS: Lactate Dehydrogenase 193 U/L (313-618); Reticulocyte % (Auto) 8.6 % (0.9-3.2)
[2022-09-20 19:35] LABS: Total Iron Binding Capacity 357 ug/dL (261-462)
[2022-09-20 19:49] LABS: Fibrinogen 348 mg/dL (229.9-363.5)
[2022-09-20 20:16] LABS: Vitamin B12 206 pg/mL (239-931)
--- NOTE | 2022-09-20 23:55 | HMH.EDGENADL ---
Discharge Plan Disposition Patient Disposition: Admitted As Inpatient Condition: Critical Clinical Impressions Clinical Impression: Myocardial infarction Discharge ED Provider: [facility] Adult HPI General Chief complaint: Chest Pain Stated complaint: STEMI Time Seen by Provider: 09/20/22 13:35 Mode of Arrival: EMS Source of Information: Patient Limitations: No Limitations Description of Symptoms (Recalled from ER Triage Doc. by RN): PT STATES HE HAS CHEST PAIN THAT STARTED TODAY, STATES IT IS IN THE CENTER OF HIS CHEST AND DOESN'T RADIATE ANYWHERE, HAD HEART ATTACK AND STENTS PLACED ON THE FIRST History of Present Illness HPI narrative: Patient presents for evaluation of chest pain that started today. Recent history of cardiac stenting procedure with 2 stents placed and patient placed on dual antiplatelet therapy. He reports he has missed some doses of his anticoagulation. Currently having severe chest tightness, shortness of breath, pallor. Related Data Home Medications Medication Instructions Recorded Confirmed aspirin 81 mg tablet,delayed 81 mg PO DAILY HEART HEALTH 09/16/22 09/20/22 release metoprolol tartrate 25 mg tablet 12.5 mg PO BID Hypertension 09/16/22 09/20/22 rosuvastatin 40 mg tablet 40 mg PO DAILY Cholesterol 09/16/22 09/20/22 ticagrelor 90 mg tablet (Brilinta) 90 mg PO BID [employer] INH[employer]OR 09/16/22 09/20/22 amlodipine 5 mg tablet 5 mg PO HS Hypertension 09/20/22 09/20/22 cholecalciferol (vitamin D3) 1,250 1,250 mcg PO WEEKLY Supplement 09/20/22 09/20/22 mcg (50,000 unit) capsule cholecalciferol (vitamin D3) 50 50 mcg PO DAILY Supplement 09/20/22 09/20/22 mcg (2,000 unit) capsule hydrochlorothiazide 12.5 mg tablet 12.5 mg PO DAILY Fluid 09/20/22 09/20/22 hydrocodone 5 mg-acetaminophen 325 1 tab PO BID Pain 09/20/22 09/20/22 mg tablet lisinopril 20 mg tablet 20 mg PO DAILY Hypertension 09/20/22 09/20/22 Allergies Allergy/AdvReac Type Severity Reaction Status Date / Time No Known Allergies Allergy Verified 09/16/22 11:[address] [facility] Disclaimer: The information contained in this section may have been updated after the patient was seen, as this information can be updated by other users. Social History Smoking Status: Never smoker alcohol intake: never current occupational status: disabled Travel in the last 8 weeks: None ROS Obtained: Yes Systems reviewed as appropriate & no additional complaints except as documented Physical Exam General General appearance: alert and in distress Head Head exam: atraumatic and normocephalic Eye Eye exam: Present normal appearance Respiratory Respiratory exam: Present normal lung sounds bilaterally Cardiovascular Cardiovascular exam: Present tachycardia Abdominal Exam Abdominal exam: Present soft Neurological Exam Neurological exam: Present alert and oriented X3 Psychiatric Psychiatric exam: Present normal affect and normal mood Skin Skin exam: Present dry and pallor Medical Decision Making [place] Inquiry Pt receiving controlled substance: No Vital Signs: 09/20/22 13:36 09/20/22 14:17 09/20/22 14:17 Temperature 97.9 F 97.5 F L Temperature Source Oral Oral Pulse Rate 121 H 120 H Pulse Rate [Right Radial] 111 H Respiratory Rate 18 18 Blood Pressure 121/75 Blood Pressure [Right Arm] 124/95 H Blood Pressure Mean [Right Arm] 104 Blood Pressure Source Automatic Cuff Blood Pressure Source [Right Arm] Automatic Cuff Blood Pressure Position Sitting Blood Pressure Position [Right Arm] Sitting 02 Sat by Pulse Oximetry 100 Oxygen Delivery Method Nasal Cannula Nasal Cannula Oxygen Flow Rate (LPM) 2 2 Lab Data Lab Results 09/20/22 13:49: WBC 32.9 H* D, RBC 1.65 L* D, Hgb 5.4 L*, Hct 15.6 L*, MCV 94.6 H, MCH 32.6 H, MCHC 34.4, RDW 16.3, Plt Count 477 H, MPV 8.5, Neut % (Auto) 81.1 H, Lymph % (Auto) 13.7, [place] % (Auto) 4.9, Eos
--- NOTE | 2022-09-20 23:56 | PC.NURSE ---
Spoke with Lisha WEATHERS. Check Hgb after 3rd transfusion and transfuse 4th if Hgb is less then 10.
[2022-09-21] VITALS (18 sets, daily range): BP systolic 99–122; BP diastolic 51–82; PULSE 80–95; RESP 16–20; TEMP 36.7–37.5; O2SAT 96–100; BMI 31.1
[2022-09-21 02:27] LABS: Hematocrit 30.1 % (42.0-52.0)
[2022-09-21 02:29] LABS: Hemoglobin 10.1 g/dL (14.1-18.0)
--- NOTE | 2022-09-21 02:53 | PC.NURSE ---
Hgb 10.1. fourth unit of blood on hold. Also spoke with Gayatri EL who is also aware.
--- NOTE | 2022-09-21 06:34 | PC.NURSE ---
Pt has not c/o any discomfort this shift. VS have remained stable. NSR on telemetry. Pt tolerated blood transfusions this shift. Pt c/o anxiety after trying to get up to [facility] and was unable to do so. Pt had an episode of urinary incontinence with episode. He states he has a history of anxiety and fears that his heart is getting worse. Pt has used urinal. No BM. Call light within reach.
[2022-09-21 06:40] LABS: Basophils # 0.2 K/mm3 (0-0.2); Basophils % 0.6 % (0.1-2.0); Eosinophils # 0.2 K/mm3 (0.0-0.4); Eosinophils % 0.5 % (0.1-12.0); Hematocrit 26.3 % (42.0-52.0); Hemoglobin 9.8 g/dL (14.1-18.0); Lymphocytes # 4.5 K/mm3 (0.7-4.5); Lymphocytes % 14.9 % (10-50); Mean Corpuscular HGB Conc 37.3 g/dL (31.8-35.4); Mean Corpuscular Hemoglobin 32.9 pg (27.0-31.2); Mean Corpuscular Volume 88.3 fl (80-94); Mean Platelet Volume 8.8 fl (7.4-10.4); Monocytes # 1.7 K/mm3 (0.1-1.0); Monocytes % 5.5 % (1.7-9.3); Neutrophils # 23.8 K/mm3 (1.8-7.8); Neutrophils % 78.4 % (37.0-80.0); Platelet Count 252 K/mm3 (142-424); Red Blood Count 2.97 M/mm3 (4.60-6.20); Red Cell Distribution Width 16.3 % (11.5-17.5); White Blood Count 30.3 K/mm3 (4.8-10.8)
[2022-09-21 06:49] LABS: MANUAL DIFFERENTIAL MANUAL DIFFERENTIAL (MANUAL DIFF)
[2022-09-21 06:54] LABS: Alanine Aminotransferase 20 U/L (12-78); Albumin Level 2.5 g/dl (3.5-5.0); Albumin/Globulin Ratio 1.2 (1.1-1.8); Alkaline Phosphatase 48 U/L (38-126); Anion Gap 8.6 mEq/L (5-15); Aspartate Amino Transferase 54 U/L (17-59); Bilirubin,Total 0.3 mg/dl (0.2-1.3); Blood Urea Nitrogen 39 mg/dl (9-20); Calcium 7.5 mg/dl (8.4-10.2); Carbon Dioxide 22 mmol/L (22.0-30.0); Chloride 103 mmol/L (98-107); Creatinine Clearance Estimated 139 mL/min (50-200); Estimated Glomerular Filt Rate 88 ml/min (>60); GFR (African American) 106 ML/MIN (>60); Globulin 2.1 g/dL (1.3-3.2); Glucose 129 mg/dl (74-100); Magnesium 1.8 mg/dl (1.6-2.3); Phosphorous 2.8 mg/dl (2.5-4.5); Potassium 4.6 mmoL/L (3.5-5.1); Sodium 129 mmol/L (136-145); Total Protein,Serum 4.6 g/dl (6.3-8.2)
[2022-09-21 07:13] LABS: Lymphocytes % 21 % (10-50); Monocytes % 5 % (2-9); Neutrophils % 73 % (42-76); Total Cells Counted 100
[2022-09-21 07:14] LABS: Platelet Estimate Normal; RBC Morphology Normal
--- NOTE | 2022-09-21 07:34 | PC.NURSE ---
MD Ibarra notified of H&H this morning. New orders received to recheck H&H at 1pm today.
--- NOTE | 2022-09-21 08:00 | CA_ITS ---
APPROVED REPORT EXAM: Limited 2D Echocardiogram Technical Support Associate: Brit Frank RVT Ht: 6 ft 0 in Wt: 225lbs BSA: 2.24 BP: 125/76 mmHg Indications: STEMI,EF CHECK,CAD,STENTING ON [employer]UNTER AND THROBECTOMY 09/20/22,ANEMIA 2D Dimensions LVOT 2.48 cm (M/F) 1.5-2.5 M-Mode Dimensions RVDd 1.89 cm (0.9-2.6) LA Diam 2.78 cm (1.9-4.0) LVDd 4.42 cm (3.5-5.7) Ao Diam 4.06 cm (2.0-3.7) LVDs 2.65 cm (3.5-5.7) IVSd 1.89 cm (0.6-1.1) PWd 0.64 cm (0.6-1.1) EF (Teich) 70.90% FS 40.00% EDV (Teich) 88.60 mL ESV (Teich) 25.80 mL Conclusion 1. Limited echocardiogram was performed to evaluate left ventricular systolic function, left ventricle is normal size, estimated ejection fraction approximately 45%, there is mild hypokinesis involving mid to distal septum and apical wall. 2. No significant pericardial effusion noted. Electronically signed by : Sage Flaherty MD 09/21/2022 22:16:04
--- NOTE | 2022-09-21 10:26 | XR_ITS ---
FINAL REPORT CLINICAL HISTORY: increased WBC-- status post heart cath COMPARISON: September 18, 2022 FINDINGS: There is an intermittent loop recorder. The heart size is normal. The mediastinum is within normal limits. There is mild pulmonary vascular congestion. There is mild right lung base opacity. There is no pleural effusion. There is no pneumothorax. The bony thorax is intact. IMPRESSION: Mild right base opacity could represent atelectasis or pneumonia. Mild pulmonary vascular congestion. Reviewed, Interpreted and Dictated by Stanislav Restrepo III, MD Transcribed by Néstor Skinner Authenticated and [facility]
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
[2022-09-21 11:34] LABS: Vitamin B12 201 pg/mL (239-931)
[2022-09-21 13:18] LABS: Hematocrit 27.2 % (42.0-52.0); Hemoglobin 9.1 g/dL (14.1-18.0)
--- NOTE | 2022-09-21 13:34 | HMH.PHAINT1 ---
Pharmacy Intervention Comments: MEDICATION RECONCILIATION COMPLETED ON PATIENT USING EXTERNAL FILL HISTORY FROM PHARMACY. -KALEIGH ESQUIVEL, GUICHOD
--- NOTE | 2022-09-21 15:30 | SW/DCPLANNER ---
Addendum entered by Samantha Bourne RN 09/24/22 14:52: Spoke with patient today in regards to discharge planning. Patient is now interested in going to SNF upon discharge. Patient choice signed for [facility] as first choice and is agreeable to anywhere other than [facility] in [place]. Patient will be faxed to [facility], [place] and [facility]. Original Note: I spoke with this patient this AM regarding home situation and resources at home. Patient stated that he lives in a [facility] in [place] but his daughter checks on him often. Patient stated that he is able to complete ADL's including cooking and bathing. Patient is not currently enrolled in any Medicaid Waiver services but is interested. I have faxed patient's information to [facility]/ [facility] regarding resources. Patient did express that he is not interested in a [facility]. Patient does have running water and stated that his electric will be shut off soon. However patient stated that [employer] has been helping him with his electric bill. I spoke with Justine at [employer] and she stated that if patient was able to receive extension till 09/30/22 they could assist patient. Patient stated that he has contacted [facility] and since he is in hospital if patient can provide [facility]/ information and fax information to complete a form they could approve extension. I informed this patient of MD information including name and address and asked that he have [employer] fax me the form I could have this completed by MD. Patient is alert and oriented and said he would do this today. I have yet to receive a form or phone call from at this time. Patient stated that he does have a car is able to drive himself when he feels like it. Patient will speak with family/friends regarding assistance at home. I will continue to follow up with this patient and MD. I do not feel that this is an APS case at this time due to patient being alert, oriented and able to complete ADLs. Discharge date is unknown at this time.
--- NOTE | 2022-09-21 18:03 | EXP.ACUTE.PN ---
Subjective *Date: 09/21/22 *Time: 18:03 Interval history: Fatigued this morning. Discussed current housing situation. States he has bedbug infestation at his house. Food insecurity. Does not feel safe at home. Passive suicidal thoughts. Cannot heat house. Unstable living circumstances. Afraid to go home. Having severe anxiety. Medical Exam Vital signs and Labs for Last 24 Hours: Vital Signs Temp Pulse Pulse Resp BP BP Pulse Ox 09/21/22 16:00 90 09/21/22 12:00 85 09/21/22 08:00 80 09/21/22 15:39 98.0 F 85 17 111/60 97 09/21/22 14:00 85 20 113/82 100 09/21/22 12:00 89 18 122/68 100 09/21/22 09:00 87 98 09/21/22 10:00 95 H 18 122/68 100 09/21/22 11:38 98.5 F 09/21/22 08:00 87 18 104/78 L 98 09/21/22 04:00 90 09/20/22 20:00 100 H 09/21/22 08:00 98.9 F 09/21/22 06:00 82 16 99/65 L 98 09/21/22 04:00 84 16 103/68 L 98 09/21/22 04:05 98.6 F 09/21/22 00:00 90 09/21/22 02:00 98.9 F 92 H 17 110/66 100 09/21/22 01:00 99.5 F 87 17 101/68 L 100 09/21/22 00:40 98.9 F 87 16 108/75 L 100 09/20/22 23:40 98.7 F 89 20 109/76 L 100 09/20/22 23:25 99.4 F 90 20 110/56 L 100 09/20/22 23:10 99.4 F 93 H 16 103/72 L 100 09/20/22 22:55 98.5 F 95 H 18 105/68 L 100 09/21/22 00:05 98.2 F 09/20/22 22:50 98.4 F 96 H 14 102/69 L 100 09/20/22 22:45 98.4 F 92 H 16 103/68 L 100 09/20/22 22:40 98.4 F 96 H 18 101/68 L 100 09/20/22 22:33 98.4 F 95 H 21 97/67 L 100 09/20/22 21:10 98.8 F 100 H 20 118/79 100 09/20/22 20:50 99.4 F 100 H 14 114/63 100 09/20/22 19:50 98.8 F 102 H 20 123/77 100 09/20/22 19:35 98.8 F 103 H 20 125/74 100 09/20/22 19:20 98.3 F 104 H 16 117/88 100 09/20/22 19:05 98 F 100 H 18 128/77 100 09/20/22 19:00 98.1 F 103 H 18 122/83 100 09/20/22 18:55 98.1 F 109 H 18 117/83 100 09/20/22 18:50 98 F 106 H 20 118/82 100 09/20/22 18:45 98 F 107 H 22 121/83 100 Intake and Output 09/21/22 09/21/22 09/21/22 07:59 15:59 23:59 Intake Total 504 / 1104 360 / 1104 240 / 1104 Output Total 250 / 1700 1100 / 1700 350 / 1700 Balance 254 / -596 -740 / -596 -110 / -596 Intake: Intake, Oral Amount 360 / 600 240 / 600 Intake, Other Amount 50 / 50 Red Blood Cells Unit 50 / 50 [id number] Intake, Total IV Amount 204 / 204 Pantoprazole Sodium 80 mg In 0. 204 / 204 9 % Sodium Chloride 100 ml @ 10 mls/hr IV .Q10H [facility] Rx#: [id number] Intake (Blood Product) Amt 250 / 250 Red Blood Cells Unit 250 / 250 [id number] Output: Output, Urine Amount 250 / 1700 1100 / 1700 350 / 1700 Other: Number of Unmeasured Voids 1 0 0 Weight 104.4 kg Patient Weight 09/21/22 23:59 Weight 104.4 kg Laboratory Results - last 24 hr 09/20/22 13:49: Iron 186 H, TIBC 357, Iron Saturation 52.31790 09/20/22 13:49: Vitamin B12 206 L 09/20/22 13:49: Retic Count (auto) 8.6 H 09/20/22 13:49: Fibrinogen 348 09/20/22 13:49: Lactate Dehydrogenase 193 L 09/20/22 13:51: SARS-CoV-2 (PCR) Not detected, Influenza A Untype (PCR) Not detected, Influenza Type B (PCR) Not detected 09/20/22 14:00: Blood Type O Positive, Antibody Screen Negative, Crossmatch (AHG) See Detail 09/21/22 02:15: Hgb 10.1 L D, Hct 30.1 L 09/21/22 05:54: WBC 30.3 H*, RBC 2.97 L D, Hgb 9.8 L, Hct 26.3 L, MCV 88.3, MCH 32.9 H, MCHC 37.3 H, RDW 16.3, Plt Count 252 D, MPV 8.8, Neut % (Auto) 78.4, Lymph % (Auto) 14.9, [place] % (Auto) 5.5, Eos % (Auto) 0.5, Baso % (Auto) 0.6, Neut # (Auto) 23.8 H, Lymph # (Auto) 4.5, [place] # (Auto) 1.7 H, Eos # (Auto) 0.2, Baso # (Auto) 0.2, Total Counted 100, Neutrophils % (Manual) 73, Lymphocytes % (Manual) 21, Monocytes % (Manual) 5, Blast Cells % 1.0, Platelet Estimate Normal, RBC Morphology Normal 09/21/22
--- NOTE | 2022-09-21 19:22 | PC.NURSE ---
pt has remained in SR t/o shift, no complaints of chest pain or SOA, is currently on room air
[2022-09-21 19:34] LABS: Basophils # 0.2 K/mm3 (0-0.2); Basophils % 0.8 % (0.1-2.0); Eosinophils # 0.2 K/mm3 (0.0-0.4); Eosinophils % 0.7 % (0.1-12.0); Hemoglobin 9.3 g/dL (14.1-18.0); Lymphocytes # 4.9 K/mm3 (0.7-4.5); Mean Corpuscular HGB Conc 34.4 g/dL (31.8-35.4); Mean Corpuscular Hemoglobin 31.8 pg (27.0-31.2); Mean Corpuscular Volume 92.7 fl (80-94); Mean Platelet Volume 8.4 fl (7.4-10.4); Monocytes # 1.2 K/mm3 (0.1-1.0); Neutrophils # 22.3 K/mm3 (1.8-7.8); Neutrophils % 77.4 % (37.0-80.0); Platelet Count 290 K/mm3 (142-424); Red Blood Count 2.91 M/mm3 (4.60-6.20); Red Cell Distribution Width 16.7 % (11.5-17.5); White Blood Count 28.8 K/mm3 (4.8-10.8)
[2022-09-21 19:35] LABS: Chloride 99 mmol/L (98-107); Potassium 4.4 mmoL/L (3.5-5.1); Sodium 130 mmol/L (136-145)
[2022-09-21 19:37] LABS: Fibrinogen 383 mg/dL (229.9-363.5)
[2022-09-21 19:38] LABS: Alanine Aminotransferase 23 U/L (12-78); Albumin Level 2.8 g/dl (3.5-5.0); Albumin/Globulin Ratio 1.2 (1.1-1.8); Alkaline Phosphatase 55 U/L (38-126); Anion Gap 8.4 mEq/L (5-15); Aspartate Amino Transferase 51 U/L (17-59); Bilirubin,Total 0.4 mg/dl (0.2-1.3); Blood Urea Nitrogen 29 mg/dl (9-20); Calcium 7.6 mg/dl (8.4-10.2); Carbon Dioxide 27 mmol/L (22.0-30.0); Creatinine Clearance Estimated 139 mL/min (50-200); Estimated Glomerular Filt Rate 88 ml/min (>60); GFR (African American) 106 ML/MIN (>60); Globulin 2.3 g/dL (1.3-3.2); Glucose 117 mg/dl (74-100); Iron 67 ug/dL (49-181); Total Protein,Serum 5.1 g/dl (6.3-8.2)
[2022-09-21 19:43] LABS: MANUAL DIFFERENTIAL MANUAL DIFFERENTIAL (MANUAL DIFF)
[2022-09-21 19:48] LABS: Total Iron Binding Capacity 353 ug/dL (261-462)
[2022-09-21 20:14] LABS: Ferritin 85.6 ng/ml (17.9-464)
[2022-09-21 20:51] LABS: Lactate Dehydrogenase 284 U/L (313-618)
[2022-09-21 22:47] LABS: Lymphocytes % 24 % (10-50); Monocytes % 4 % (2-9); Neutrophils % 72 % (42-76); Nucleated Red Blood Cells 1; Platelet Estimate Normal; RBC Morphology Normal; Total Cells Counted 100
[2022-09-22] VITALS (19 sets, daily range): BP systolic 89–116; BP diastolic 53–73; PULSE 72–90; RESP 16–18; TEMP 36.4–37; O2SAT 95–100; BMI 30.9; BMI 30.7
--- NOTE | 2022-09-22 05:12 | PC.NURSE ---
NO ACUTE CHANGES SINCE PREVIOUS ASSESSMENT. REMAINS ON ROOM AIR. PT HAS NOT SLEPT THIS SHIFT. WAS SLIGHTLY IRRITABLE AT THE BEGINNING OF THE SHIFT BUT HAS BEEN BETTER THE REST OF THE SHIFT. NO C/O SOB OR CHEST PAIN. VSS. PT IS EAGER TO GET OUT OF BED TODAY AND START WALKING.
[2022-09-22 06:50] LABS: Basophils # 0.2 K/mm3 (0-0.2); Basophils % 0.6 % (0.1-2.0); Eosinophils # 0.5 K/mm3 (0.0-0.4); Eosinophils % 1.8 % (0.1-12.0); Hematocrit 24.2 % (42.0-52.0); Hemoglobin 8.5 g/dL (14.1-18.0); Lymphocytes # 4.3 K/mm3 (0.7-4.5); Lymphocytes % 17.4 % (10-50); Mean Corpuscular HGB Conc 35.2 g/dL (31.8-35.4); Mean Corpuscular Hemoglobin 32.2 pg (27.0-31.2); Mean Corpuscular Volume 91.4 fl (80-94); Mean Platelet Volume 8.3 fl (7.4-10.4); Monocytes # 1.2 K/mm3 (0.1-1.0); Monocytes % 4.9 % (1.7-9.3); Neutrophils # 18.6 K/mm3 (1.8-7.8); Neutrophils % 75.3 % (37.0-80.0); Platelet Count 299 K/mm3 (142-424); Red Blood Count 2.65 M/mm3 (4.60-6.20); White Blood Count 24.7 K/mm3 (4.8-10.8)
[2022-09-22 06:57] LABS: MANUAL DIFFERENTIAL MANUAL DIFFERENTIAL (MANUAL DIFF)
[2022-09-22 07:17] LABS: Eosinophils % 1 % (0-3); Lymphocytes % 26 % (10-50); Monocytes % 9 % (2-9); Neutrophils % 64 % (42-76); Total Cells Counted 100
[2022-09-22 07:18] LABS: Platelet Estimate Normal; RBC Morphology Normal
--- NOTE | 2022-09-22 08:18 | PC.NURSE ---
ANEESH AT BEDSIDE SPEAKING WITH PT PER HIS REQUEST.
[2022-09-22 08:20] LABS: Alanine Aminotransferase 23 U/L (12-78); Albumin Level 2.7 g/dl (3.5-5.0); Albumin/Globulin Ratio 1.4 (1.1-1.8); Alkaline Phosphatase 52 U/L (38-126); Anion Gap 9.3 mEq/L (5-15); Aspartate Amino Transferase 44 U/L (17-59); Bilirubin,Total 0.7 mg/dl (0.2-1.3); Blood Urea Nitrogen 20 mg/dl (9-20); Calcium 7.4 mg/dl (8.4-10.2); Carbon Dioxide 24 mmol/L (22.0-30.0); Chloride 101 mmol/L (98-107); Creatinine Clearance Estimated 155 mL/min (50-200); Estimated Glomerular Filt Rate 101 ml/min (>60); GFR (African American) 122 ML/MIN (>60); Glucose 92 mg/dl (74-100); Phosphorous 3.1 mg/dl (2.5-4.5); Potassium 4.3 mmoL/L (3.5-5.1); Sodium 130 mmol/L (136-145); Total Protein,Serum 4.7 g/dl (6.3-8.2)
--- NOTE | 2022-09-22 08:22 | ECG_ITS ---
APPROVED REPORT Exam: Resting ECG HR:83 bpm ECG Measurements Heart Rate 83 AXES LA 148 P 39 QRSd 88 QRS 58 QT 362 T 59 QTc 402 Conclusion SINUS RHYTHM SEPTAL MYOCARDIAL INFARCTION , OF INDETERMINATE AGE [40+ ms Q WAVE IN V1/V2] ABNORMAL ECG UNCONFIRMED REPORT Electronically signed by : Anastacio Dubon MD 09/22/2022 10:13:39
--- NOTE | 2022-09-22 08:39 | EXP.CARD.PN ---
Subjective Subjective Date: 09/22/22 Time: 08:39 Principal diagnosis: STEMI Interval history: 56-year-old white male sitting up in bed in no acute distress. Patient relates he is making plans to move back to [facility] closer to family. Hemoglobin today is down to 8.5 Blood pressure remained stable Exam Data for Last 24 hours Vital signs and Labs for Last 24 Hours: Temp Pulse Resp BP Pulse Ox 97.9 F 85 16 106/66 L 99 09/22/22 07:25 09/22/22 07:25 09/22/22 07:25 09/22/22 07:25 09/22/22 07:25 Laboratory Results - last 24 hr 09/21/22 05:54: Vitamin B12 201 L 09/21/22 12:50: Hgb 9.1 L, Hct 27.2 L 09/21/22 19:10: WBC 28.8 H*, RBC 2.91 L, Hgb 9.3 L, Hct 27.0 L, MCV 92.7, MCH 31.8 H, MCHC 34.4, RDW 16.7, Plt Count 290, MPV 8.4, Neut % (Auto) 77.4, Lymph % (Auto) 17.0, [place] % (Auto) 4.0, Eos % (Auto) 0.7, Baso % (Auto) 0.8, Neut # (Auto) 22.3 H, Lymph # (Auto) 4.9 H, [place] # (Auto) 1.2 H, Eos # (Auto) 0.2, Baso # (Auto) 0.2, Total Counted 100, Neutrophils % (Manual) 72, Lymphocytes % (Manual) 24, Monocytes % (Manual) 4, Nucleated RBCs 1, Platelet Estimate Normal, RBC Morphology Normal 09/21/22 19:10: Fibrinogen 383 H 09/21/22 19:10: Sodium 130 L, Potassium 4.4, Chloride 99, Carbon Dioxide 27, Anion Gap 8.4, BUN 29 H D, Creatinine 0.90, Estimated Creat Clear 139, Estimated GFR 88, Est GFR ( Amer) 106, Glucose 117 H, Calcium 7.6 L, Iron 67 D, TIBC 353, Iron Saturation 18.54263, Ferritin 85.6, Total Bilirubin 0.4, AST 51, ALT 23, Alkaline Phosphatase 55, Lactate Dehydrogenase 284 L D, Total Protein 5.1 L, Albumin 2.8 L D, Globulin 2.3, Albumin/Globulin Ratio 1.2 09/22/22 06:22: WBC 24.7 H*, RBC 2.65 L, Hgb 8.5 L, Hct 24.2 L, MCV 91.4, MCH 32.2 H, MCHC 35.2, RDW 17.0, Plt Count 299, MPV 8.3, Neut % (Auto) 75.3, Lymph % (Auto) 17.4, [place] % (Auto) 4.9, Eos % (Auto) 1.8, Baso % (Auto) 0.6, Neut # (Auto) 18.6 H, Lymph # (Auto) 4.3, [place] # (Auto) 1.2 H, Eos # (Auto) 0.5 H, Baso # (Auto) 0.2, Total Counted 100, Neutrophils % (Manual) 64, Lymphocytes % (Manual) 26, Monocytes % (Manual) 9, Eosinophils % (Manual) 1, Platelet Estimate Normal, RBC Morphology Normal 09/22/22 06:22: Sodium 130 L, Potassium 4.3, Chloride 101, Carbon Dioxide 24, Anion Gap 9.3, BUN 20 D, Creatinine 0.80, Estimated Creat Clear 155, Estimated GFR 101, Est GFR ( Amer) 122, Glucose 92 D, Calcium 7.4 L, Phosphorus 3.1, Magnesium 2.0 D, Total Bilirubin 0.7, AST 44, ALT 23, Alkaline Phosphatase 52, Total Protein 4.7 L, Albumin 2.7 L, Globulin 2.0, Albumin/Globulin Ratio 1.4 I & O for Last 24 hours: Intake & Output 09/19/22 09/20/22 09/21/22 09/22/22 11:59 11:59 11:59 11:59 Intake Total 1534 / 1534 1071 / 1071 Output Total 1750 / 1750 1875 / 1875 Balance -216 / -216 -804 / -804 Weight 230 lb 2.601 oz 228 lb 2.855 oz Constitutional Constitutional: no acute distress *Routine Respiratory Exam Respiratory: Present CTA bilaterally *Routine Cardiovascular Exam Cardiovascular: Present RRR *Routine Extremities Exam Extremities: Present edema Comments: Left sided paralysis *Routine Neurological Exam Neurological: Present alert and oriented X3 Progress Note: A&P Assessment and plan (1) STEMI (ST elevation myocardial infarction): Status: Acute (2) Coronary artery disease: Status: Acute (3) Obesity (BMI 30-39.9): Status: Acute (4) Anemia requiring transfusions: Status: Acute (5) Hyponatremia: Status: Acute (6) Housing situation unstable: Status: Acute (7) Depression: Status: Acute Assessment and Plan Assessment and Plan for All Diagnoses:: 1.? CAD with recent coronary stenting 09/12/2022 and subsequent recurrent STEMI 09/20/2022 likely due to medication confusion.? Patient now on aspirin 81 mg daily and Brilinta 90 mg twice daily.? Echocardiogram shows EF 55% with no wall motion abnormality. Mildly enlarged aortic root at 4.1 cm with no aortic stenosis or aortic insufficiency. 2.? Profound anemia w
[2022-09-22 12:54] LABS: Haptoglobin 258 mg/dL (29-370)
--- NOTE | 2022-09-22 13:23 | EXP.ACUTE.PN ---
Subjective *Date: 09/22/22 *Time: 18:08 Medical Exam Vital signs and Labs for Last 24 Hours: Vital Signs Temp Pulse Pulse Resp BP Pulse Ox 09/22/22 11:06 98.3 F 74 17 116/70 100 09/22/22 07:25 97.9 F 85 16 106/66 L 99 09/22/22 04:56 80 09/22/22 03:46 98.5 F 81 18 95/63 L 95 09/22/22 00:00 80 09/21/22 23:40 98.7 F 80 18 112/68 96 09/21/22 20:00 80 09/21/22 20:00 98.2 F 84 18 113/51 L 98 09/21/22 16:00 90 09/21/22 15:39 98.0 F 85 17 111/60 97 09/21/22 14:00 85 20 113/82 100 Intake and Output 09/21/22 09/22/22 09/22/22 23:59 07:59 15:59 Intake Total 365 / 1229 346 / 466 120 / 466 Output Total 950 / 2300 325 / 1400 1075 / 1400 Balance -585 / -1071 21 / -934 -955 / -934 Intake: Intake, Oral Amount 240 / 600 240 / 360 120 / 360 Intake, Total IV Amount 125 / 329 106 / 106 Pantoprazole Sodium 80 mg In 0. 125 / 329 106 / 106 9 % Sodium Chloride 100 ml @ 10 mls/hr IV .Q10H [facility] Rx#: [id number] Output: Output, Urine Amount 950 / 2300 325 / 1400 1075 / 1400 Other: Number of Unmeasured Voids 0 0 0 Weight 103.5 kg Patient Weight 09/22/22 23:59 Weight 103.5 kg Laboratory Results - last 24 hr 09/20/22 13:49: Haptoglobin 258 09/21/22 12:50: Hgb 9.1 L, Hct 27.2 L 09/21/22 19:10: WBC 28.8 H*, RBC 2.91 L, Hgb 9.3 L, Hct 27.0 L, MCV 92.7, MCH 31.8 H, MCHC 34.4, RDW 16.7, Plt Count 290, MPV 8.4, Neut % (Auto) 77.4, Lymph % (Auto) 17.0, [place] % (Auto) 4.0, Eos % (Auto) 0.7, Baso % (Auto) 0.8, Neut # (Auto) 22.3 H, Lymph # (Auto) 4.9 H, [place] # (Auto) 1.2 H, Eos # (Auto) 0.2, Baso # (Auto) 0.2, Total Counted 100, Neutrophils % (Manual) 72, Lymphocytes % (Manual) 24, Monocytes % (Manual) 4, Nucleated RBCs 1, Platelet Estimate Normal, RBC Morphology Normal 09/21/22 19:10: Fibrinogen 383 H 09/21/22 19:10: Sodium 130 L, Potassium 4.4, Chloride 99, Carbon Dioxide 27, Anion Gap 8.4, BUN 29 H D, Creatinine 0.90, Estimated Creat Clear 139, Estimated GFR 88, Est GFR ( Amer) 106, Glucose 117 H, Calcium 7.6 L, Iron 67 D, TIBC 353, Iron Saturation 18.98555, Ferritin 85.6, Total Bilirubin 0.4, AST 51, ALT 23, Alkaline Phosphatase 55, Lactate Dehydrogenase 284 L D, Total Protein 5.1 L, Albumin 2.8 L D, Globulin 2.3, Albumin/Globulin Ratio 1.2 09/22/22 06:22: WBC 24.7 H*, RBC 2.65 L, Hgb 8.5 L, Hct 24.2 L, MCV 91.4, MCH 32.2 H, MCHC 35.2, RDW 17.0, Plt Count 299, MPV 8.3, Neut % (Auto) 75.3, Lymph % (Auto) 17.4, [place] % (Auto) 4.9, Eos % (Auto) 1.8, Baso % (Auto) 0.6, Neut # (Auto) 18.6 H, Lymph # (Auto) 4.3, [place] # (Auto) 1.2 H, Eos # (Auto) 0.5 H, Baso # (Auto) 0.2, Total Counted 100, Neutrophils % (Manual) 64, Lymphocytes % (Manual) 26, Monocytes % (Manual) 9, Eosinophils % (Manual) 1, Platelet Estimate Normal, RBC Morphology Normal 09/22/22 06:22: Sodium 130 L, Potassium 4.3, Chloride 101, Carbon Dioxide 24, Anion Gap 9.3, BUN 20 D, Creatinine 0.80, Estimated Creat Clear 155, Estimated GFR 101, Est GFR ( Amer) 122, Glucose 92 D, Calcium 7.4 L, Phosphorus 3.1, Magnesium 2.0 D, Total Bilirubin 0.7, AST 44, ALT 23, Alkaline Phosphatase 52, Total Protein 4.7 L, Albumin 2.7 L, Globulin 2.0, Albumin/Globulin Ratio 1.4 I & O for Labs for Last 24 Hours: Intake & Output 09/19/22 09/20/22 09/21/22 09/22/22 23:59 23:59 23:59 23:59 Intake Total 1030 / 1030 1229 / 1229 466 / 466 Output Total 1000 / 1000 2300 / 2300 1400 / 1400 Balance -1071 / -1071 -934 / -934 Weight 102.058 kg 104.4 kg 103.5 kg Assessment and Plan *Assessment and plan (1) STEMI (ST elevation myocardial infarction): Status: Acute Category: Medical Code(s): I21.3 - ST elevation (STEMI) myocardial infarction of unspecified site (2) Acute blood loss anemia: Status: Acute Category: Medical Code(s): D62 - Acute posthemorrhagic anemia (3) Melena: Status: Acute Category: Medical Code(s): K92.1 -
--- NOTE | 2022-09-22 14:03 | PC.NURSE ---
Contacted surgery suite regarding general surgery consult.
--- NOTE | 2022-09-22 14:36 | EXP.SURG.CON ---
History of Present Illness *Admission Date: 09/20/22 *Reason for visit:: Anemia / Melena *History of present illness: This is a 56yo M seen in consultation from the Hospitalist Service for evaluation of anemia and melena. He recently underwent coronary stenting at an outside hospital on 2021. He then developed increased chest pain and was diagnosed with STEMI, 09/20/2022...this was treated with mechanical thrombectomy followed by balloon angioplasty. During the above evaluation, he was found to be severely anemic (HGB 5.4) with no definitive source. Since initial response to a 5-unit transfusion of PRBCs he has drifted from 10.1 to 8.5 this AM. + report of dark stool . On Brilinta, ASA, and Protonix. Forwarded from H&P: 56-year-old man with recent PCI presents to the emergency department due to anxiety attacks. He was found to have a STEMI and was taken to the [facility] And received mechanical thrombectomy followed by balloon angioplasty. Patient was discharged from the [facility] to stepdown unit. Further history unable to be obtained due to sedation from procedure [facility] Disclaimer: The information contained in this section may have been updated after the patient was seen, as this information can be updated by other users. Social History Smoking Status: Never smoker alcohol intake: never current occupational status: disabled Travel in the last 8 weeks: None Review of Systems ENT Ears, Nose, Mouth, and Throat: Reports vertigo *Neurologic Neurologic: Reports vertigo Meds Home Medications and Allergies Home Medications Medication Instructions Recorded Confirmed Type aspirin 81 mg tablet,delayed 81 mg PO DAILY [facility] 09/16/22 09/20/22 History release metoprolol tartrate 25 mg tablet 12.5 mg PO BID Hypertension 09/16/22 09/20/22 History rosuvastatin 40 mg tablet 40 mg PO DAILY Cholesterol 09/16/22 09/20/22 History ticagrelor 90 mg tablet (Brilinta) 90 mg PO BID [facility] 09/16/22 09/20/22 History amlodipine 5 mg tablet 5 mg PO HS Hypertension 09/20/22 09/20/22 History cholecalciferol (vitamin D3) 1,250 1,250 mcg PO WEEKLY Supplement 09/20/22 09/20/22 History mcg (50,000 unit) capsule cholecalciferol (vitamin D3) 50 50 mcg PO DAILY Supplement 09/20/22 09/20/22 History mcg (2,000 unit) capsule hydrochlorothiazide 12.5 mg tablet 12.5 mg PO DAILY Fluid 09/20/22 09/20/22 History hydrocodone 5 mg-acetaminophen 325 1 tab PO BID Pain 09/20/22 09/20/22 History mg tablet lisinopril 20 mg tablet 20 mg PO DAILY Hypertension 09/20/22 09/20/22 History New Prescriptions to Start Prescriptions: Allergies Allergy/AdvReac Type Severity Reaction Status Date / Time No Known Allergies Allergy Verified 09/16/22 11:16 Exam (Inpt) Vital signs and Labs for Last 24 Hours: Temp Pulse Resp BP Pulse Ox 98.3 F 80 17 116/70 100 09/22/22 11:06 09/22/22 12:00 09/22/22 11:06 09/22/22 11:06 09/22/22 11:06 Laboratory Results - last 24 hr 09/20/22 13:49: Haptoglobin 258 09/21/22 19:10: WBC 28.8 H*, RBC 2.91 L, Hgb 9.3 L, Hct 27.0 L, MCV 92.7, MCH 31.8 H, MCHC 34.4, RDW 16.7, Plt Count 290, MPV 8.4, Neut % (Auto) 77.4, Lymph % (Auto) 17.0, [place] % (Auto) 4.0, Eos % (Auto) 0.7, Baso % (Auto) 0.8, Neut # (Auto) 22.3 H, Lymph # (Auto) 4.9 H, [place] # (Auto) 1.2 H, Eos # (Auto) 0.2, Baso # (Auto) 0.2, Total Counted 100, Neutrophils % (Manual) 72, Lymphocytes % (Manual) 24, Monocytes % (Manual) 4, Nucleated RBCs 1, Platelet Estimate Normal, RBC Morphology Normal 09/21/22 19:10: Fibrinogen 383 H 09/21/22 19:10: Sodium 130 L, Potassium 4.4, Chloride 99, Carbon Dioxide 27, Anion Gap 8.4, BUN 29 H D, Creatinine 0.90, Estimated Creat Clear 139, Estimated GFR 88, Est GFR ( Amer) 106, Glucose 117 H, Ca
--- NOTE | 2022-09-22 15:49 | DIET.NUTRFU ---
Patient non-complaint with cardiac diet, claims he dislikes all the food offered. He already had family bring in [place] food from outside facility and now ordering pizza. Provider agreed on regular diet and he ordered cheeseburger and fries for dinner. He also had multiple Pepsi's at bedside. He reports he is lazy at home and buying multiple fast food or convenience items for most of his meals. He has gained about 60# over past 10 years but is not interested in changing diet habits. He also just quite smoking and this RD encouraged smart diet choices to avoid further wt gains. Family bedside, young adults did not seems supportive of RDs recommendations. Kitchen notified of diet requests.
--- NOTE | 2022-09-22 16:47 | PC.NURSE ---
PT HAS BEEN UP TO CHAIR ONCE THIS SHIFT. PT HAS ALSO C/O BACK PAIN AND ONE PANIC ATTACK. MD AWARE AND HAS ROUNDED ON PT. MEDS REORDERED PRN. PT DENIES CP OR SOA. NO ACUTE CHANGES FROM PREVIOUS ASSESSMENT. CALL LIGHT REMAINS WITHIN REACH. MULTIPLE VISITORS NOTED TODAY.
--- NOTE | 2022-09-22 17:13 | XR_ITS ---
PROCEDURE INFORMATION: Exam: XR Chest Exam date and time: 09/22/2022 5:26 PM Age: 56 years old Clinical indication: Other: Atelectasis; Additional info: Repeat, atelectasis, elevated wbc TECHNIQUE: Imaging protocol: Radiologic exam of the chest. Views: 1 view. COMPARISON: CR XR CHEST PORTABLE 09/21/2022 11:26 AM FINDINGS: Tubes, catheters and devices: Electronic monitoring device is superimposed upon the mid left chest wall. Lungs: No consolidation or lung nodules. Pleural spaces: No pleural effusion. No pneumothorax. Heart/Mediastinum: No abnormalities. No cardiomegaly. No pulmonary vascular congestion. Bones/joints: No fractures or bone lesions. IMPRESSION: No acute findings in the chest. No change since 01/18/2022.
[2022-09-22 22:30] LABS: Basophils # 0.1 K/mm3 (0-0.2); Basophils % 0.6 % (0.1-2.0); Eosinophils # 0.2 K/mm3 (0.0-0.4); Eosinophils % 1.3 % (0.1-12.0); Hematocrit 23.4 % (42.0-52.0); Lymphocytes # 3.6 K/mm3 (0.7-4.5); Lymphocytes % 19.2 % (10-50); Mean Corpuscular HGB Conc 34.2 g/dL (31.8-35.4); Mean Corpuscular Volume 93.5 fl (80-94); Monocytes # 0.9 K/mm3 (0.1-1.0); Monocytes % 4.9 % (1.7-9.3); Neutrophils # 14.1 K/mm3 (1.8-7.8); Neutrophils % 74.1 % (37.0-80.0); Platelet Count 337 K/mm3 (142-424); Red Cell Distribution Width 17.4 % (11.5-17.5)
[2022-09-22 22:35] LABS: MANUAL DIFFERENTIAL MANUAL DIFFERENTIAL (MANUAL DIFF)
[2022-09-22 23:02] LABS: Eosinophils % 3 % (0-3); Lymphocytes % 25 % (10-50); Monocytes % 10 % (2-9); Neutrophils % 61 % (42-76); Polychromasia 1+; Total Cells Counted 100
[2022-09-22 23:03] LABS: Platelet Estimate Normal
[2022-09-23] VITALS (22 sets, daily range): BP systolic 80–132; BP diastolic 38–70; PULSE 65–89; RESP 16–22; TEMP 36.2–37; O2SAT 96–100; BMI 30.7
[2022-09-23 04:22] LABS: Basophils # 0.1 K/mm3 (0-0.2); Basophils % 0.6 % (0.1-2.0); Chloride 102 mmol/L (98-107); Eosinophils # 0.3 K/mm3 (0.0-0.4); Eosinophils % 1.4 % (0.1-12.0); Hematocrit 26.5 % (42.0-52.0); Lymphocytes # 3.2 K/mm3 (0.7-4.5); Lymphocytes % 17.6 % (10-50); Mean Corpuscular HGB Conc 33.8 g/dL (31.8-35.4); Mean Corpuscular Hemoglobin 32.1 pg (27.0-31.2); Mean Corpuscular Volume 95.1 fl (80-94); Mean Platelet Volume 8.5 fl (7.4-10.4); Monocytes # 0.9 K/mm3 (0.1-1.0); Monocytes % 4.9 % (1.7-9.3); Neutrophils # 13.9 K/mm3 (1.8-7.8); Neutrophils % 75.6 % (37.0-80.0); Platelet Count 320 K/mm3 (142-424); Red Blood Count 2.78 M/mm3 (4.60-6.20); Red Cell Distribution Width 16.9 % (11.5-17.5); Sodium 132 mmol/L (136-145); White Blood Count 18.4 K/mm3 (4.8-10.8)
[2022-09-23 04:23] LABS: Potassium 3.8 mmoL/L (3.5-5.1)
[2022-09-23 04:25] LABS: Alanine Aminotransferase 23 U/L (12-78); Albumin Level 2.8 g/dl (3.5-5.0); Alkaline Phosphatase 59 U/L (38-126); Anion Gap 7.8 mEq/L (5-15); Aspartate Amino Transferase 43 U/L (17-59); Bilirubin,Total 0.6 mg/dl (0.2-1.3); Blood Urea Nitrogen 14 mg/dl (9-20); Carbon Dioxide 26 mmol/L (22.0-30.0); Creatinine Clearance Estimated 153 mL/min (50-200); Estimated Glomerular Filt Rate 101 ml/min (>60); GFR (African American) 122 ML/MIN (>60); Lactic Acid 0.8 mmol/L (0.7-2.1)
[2022-09-23 04:26] LABS: Albumin/Globulin Ratio 1.2 (1.1-1.8); Calcium 7.5 mg/dl (8.4-10.2); Globulin 2.3 g/dL (1.3-3.2); Glucose 89 mg/dl (74-100); Phosphorous 3.8 mg/dl (2.5-4.5); Total Protein,Serum 5.1 g/dl (6.3-8.2)
[2022-09-23 04:44] LABS: Hemoglobin 8.9 g/dL (14.1-18.0)
--- NOTE | 2022-09-23 05:40 | PC.NURSE ---
AT THE START OF SHIFT PT WAS PALE AND CONFUSED, SPEECH WAS GARBLED. GUI MIRANDA NP CONTACTED AND SHE CAME TO EVALUATE PT. ORTHOSTATIC BP CHECK DONE AT THIS TIME. EMERGENCY SERVICE RESTORER ALSO ORDERED 1 UNIT OR PRBC'S DUE TO PT BEING HYPOTENSIVE AND H&H DROP. PT TOLERATED PRBC'S WELL. PT BECAME MORE ALERT AND ORIENTED BLOOD BEGAN TO INFUSE. WHEN THE BLOOD WAS CLOSE TO FINISHED PT STARTED BECOMING CONFUSED AGAIN AND SUSPICIOUS ABOUT STAFF. STATING THAT HE , KNEW STAFF WAS ON DRUGS AND THAT HE DID NOT UNDERSTAND WHY STAFF WAS POKING AND PRODING HIM . PT EDUCATED MULTIPLE TIMES ON WHERE HE WAS AND HIS CONDITION. HE HAD ONE EPISODE OF INCONTINENCE THIS SHIFT. BP HAS BEEN SOFT THIS SHIFT BUT IMPROVED AFTER BLOOD TRANSFUSION. PT ALSO EDUCATED ON WHY HE NEEDS TO WEAR THE HEART MONITOR MULTIPLE TIMES THIS SHIFT.
--- NOTE | 2022-09-23 07:14 | P.PN_ITS ---
Subjective Patient reports: no new complaints Exam Data for Last 24 hours Vital signs and Labs for Last 24 Hours: Temp Pulse Resp BP Pulse Ox 98.4 F 75 18 127/59 L 97 09/23/22 04:00 09/23/22 04:00 09/23/22 04:00 09/23/22 04:00 09/23/22 04:00 Laboratory Results - last 24 hr 09/20/22 13:49: Haptoglobin 258 09/20/22 14:00: Blood Type O Positive, Antibody Screen Negative, Crossmatch (AHG) See Detail 09/22/22 06:22: Total Counted 100, Neutrophils % (Manual) 64, Lymphocytes % (Manual) 26, Monocytes % (Manual) 9, Eosinophils % (Manual) 1, Platelet Estimate Normal, RBC Morphology Normal 09/22/22 06:22: Sodium 130 L, Potassium 4.3, Chloride 101, Carbon Dioxide 24, Anion Gap 9.3, BUN 20 D, Creatinine 0.80, Estimated Creat Clear 155, Estimated GFR 101, Est GFR ( Amer) 122, Glucose 92 D, Calcium 7.4 L, Phosphorus 3.1, Magnesium 2.0 D, Total Bilirubin 0.7, AST 44, ALT 23, Alkaline Phosphatase 52, Total Protein 4.7 L, Albumin 2.7 L, Globulin 2.0, Albumin/Globulin Ratio 1.4 09/22/22 22:00: WBC 19.0 H, RBC 2.50 L, Hgb 8.0 L, Hct 23.4 L, MCV 93.5, MCH 32.0 H, MCHC 34.2, RDW 17.4, Plt Count 337, MPV 8.0, Neut % (Auto) 74.1, Lymph % (Auto) 19.2, [place] % (Auto) 4.9, Eos % (Auto) 1.3, Baso % (Auto) 0.6, Neut # (Auto) 14.1 H, Lymph # (Auto) 3.6, [place] # (Auto) 0.9, Eos # (Auto) 0.2, Baso # (Auto) 0.1, Total Counted 100, Neutrophils % (Manual) 61, Lymphocytes % (Manual) 25, Monocytes % (Manual) 10 H, Eosinophils % (Manual) 3, Basophils % (Manual) 1.0, Platelet Estimate Normal, Polychromasia 1+ 09/23/22 04:00: Lactate 0.8 09/23/22 04:00: WBC 18.4 H, RBC 2.78 L, Hgb 8.9 L D, Hct 26.5 L, MCV 95.1 H, MCH 32.1 H, MCHC 33.8, RDW 16.9, Plt Count 320, MPV 8.5, Neut % (Auto) 75.6, Lymph % (Auto) 17.6, [place] % (Auto) 4.9, Eos % (Auto) 1.4, Baso % (Auto) 0.6, Neut # (Auto) 13.9 H, Lymph # (Auto) 3.2, [place] # (Auto) 0.9, Eos # (Auto) 0.3, Baso # (Auto) 0.1 09/23/22 04:00: Sodium 132 L, Potassium 3.8, Chloride 102, Carbon Dioxide 26, Anion Gap 7.8, BUN 14 D, Creatinine 0.80, Estimated Creat Clear 153, Estimated GFR 101, Est GFR ( Amer) 122, Glucose 89, Calcium 7.5 L, Phosphorus 3.8, Total Bilirubin 0.6, AST 43, ALT 23, Alkaline Phosphatase 59, Total Protein 5.1 L, Albumin 2.8 L, Globulin 2.3, Albumin/Globulin Ratio 1.2 I & O for Last 24 hours: Intake & Output 09/20/22 09/21/22 09/22/22 09/23/22 11:59 11:59 11:59 11:59 Intake Total 1534 / 1534 1071 / 1071 1360 / 1360 Output Total 1750 / 1750 2600 / 2600 975 / 975 Balance -216 / -216 -1529 / -1529 385 / 385 Weight 230 lb 2.601 oz 228 lb 2.855 oz 226 lb 10.163 oz Constitutional Constitutional: no acute distress *Routine Respiratory Exam Respiratory: Absent respiratory distress *Routine Cardiovascular Exam Cardiovascular: Absent tachycardia Progress Note: A&P Assessment and plan (1) Anemia requiring transfusions: Status: Acute Assessment and plan: Esophagogastroduodenoscopy this morning I have discussed the risks and benefits including, but not limited to: Bleeding Infection Damage to surrounding tissue Inherent risks of sedation The patient agrees to proceed. (2) Melena: Status: Acute (3) STEMI (ST elevation myocardial infarction): Status: Acute
--- NOTE | 2022-09-23 07:15 | EXP.ANES.CKL ---
[facility] Disclaimer: The information contained in this section may have been updated after the patient was seen, as this information can be updated by other users. Social History Smoking Status: Never smoker alcohol intake: never substance use type: denies use current occupational status: disabled Travel in the last 8 weeks: None [facility] Anesthesia Checklist Patient Identification Patient Identification: Arm Band and Verbal (Name & ) Structural Data Admitted From: Inpatient Planned Operative Procedure/s: EGD Consent for Planned Operative Procedure(s) Verified: Yes NPO Status Verified Time NPO: 00:00 Chart Verification Results Verified: CBC and BMP Airway Assessment C-Spine Mobility Assessed: Yes TMJ Mobility Assessed: Yes Dentition: Poor Dentition Neurological Assessment Level of Consciousness: Awake Hx Seizures: No Numbness or tingling in extremities: No Anesthesia Plan Anesthesia Risk discussed: Yes Anesthesia Plan: Verified ASA Class: IV Anesthesia Type: MAC
--- NOTE | 2022-09-23 07:42 | HMH.SCOPE ---
Procedure: Date: 09/23/22 Patient Date of :: 1965 Procedure Performed:: Esophagogastroduodenoscopy with biopsy Indications:: Melena Anemia Performing Provider:: Francisco Church MD Referring Provider:: Hospitalist Service Sedation:: Monitored anesthesia care Procedure:: After informed consent was obtained the patient was taken to the endoscopy suite. Sedation ensued after the patient was transferred to the left lateral decubitus position. Pulse, blood pressure, and oxygen saturation were monitored throughout the procedure. The endoscope was advanced beyond the duodenal bulb. Retroflexion within the gastric lumen was accomplished. The gastroscope was carefully removed and the patient was transferred to recovery in stable condition. Please see findings and specimens below for detail. Findings:: No active bleeding No obvious ulceration Moderate to severe patchy duodenitis with no sign of active or definitive recent hemorrhage Specimens:: Antral biopsy Duodenal bulb biopsy Recommendations:: Continue proton pump inhibition Will likely benefit from expanded evaluation for possible GI source in the near future (ex., UGI/SBFT followed by capsule endoscopy for improved evaluation for possible upper source ; colonoscopy (likely in the outpatient setting) for evaluation of possible lower source with decreased transit ) Complications:: No immediate Estimated blood obtained (mL): 1
--- NOTE | 2022-09-23 09:50 | EXP.CARD.PN ---
Subjective Subjective Date: 09/23/22 Time: 09:59 Principal diagnosis: STEMI, anemia Interval history: 56-year-old white male in bed in no acute distress. EGD this morning was without significant etiology for his anemia. Duodenitis noted but no active bleeding. No bowel movement as of yet. Patient relates ambulating some yesterday with dizziness and fatigue. This was prior to being given an additional unit of blood last evening. Exam Data for Last 24 hours Vital signs and Labs for Last 24 Hours: Temp Pulse Resp BP Pulse Ox 97.2 F L 77 18 101/60 L 97 09/23/22 07:40 09/23/22 08:05 09/23/22 08:05 09/23/22 08:05 09/23/22 08:05 Laboratory Results - last 24 hr 09/20/22 13:49: Haptoglobin 258 09/20/22 14:00: Blood Type O Positive, Antibody Screen Negative, Crossmatch (AHG) See Detail 09/22/22 22:00: WBC 19.0 H, RBC 2.50 L, Hgb 8.0 L, Hct 23.4 L, MCV 93.5, MCH 32.0 H, MCHC 34.2, RDW 17.4, Plt Count 337, MPV 8.0, Neut % (Auto) 74.1, Lymph % (Auto) 19.2, [place] % (Auto) 4.9, Eos % (Auto) 1.3, Baso % (Auto) 0.6, Neut # (Auto) 14.1 H, Lymph # (Auto) 3.6, [place] # (Auto) 0.9, Eos # (Auto) 0.2, Baso # (Auto) 0.1, Total Counted 100, Neutrophils % (Manual) 61, Lymphocytes % (Manual) 25, Monocytes % (Manual) 10 H, Eosinophils % (Manual) 3, Basophils % (Manual) 1.0, Platelet Estimate Normal, Polychromasia 1+ 09/23/22 04:00: Lactate 0.8 09/23/22 04:00: WBC 18.4 H, RBC 2.78 L, Hgb 8.9 L D, Hct 26.5 L, MCV 95.1 H, MCH 32.1 H, MCHC 33.8, RDW 16.9, Plt Count 320, MPV 8.5, Neut % (Auto) 75.6, Lymph % (Auto) 17.6, [place] % (Auto) 4.9, Eos % (Auto) 1.4, Baso % (Auto) 0.6, Neut # (Auto) 13.9 H, Lymph # (Auto) 3.2, [place] # (Auto) 0.9, Eos # (Auto) 0.3, Baso # (Auto) 0.1 09/23/22 04:00: Sodium 132 L, Potassium 3.8, Chloride 102, Carbon Dioxide 26, Anion Gap 7.8, BUN 14 D, Creatinine 0.80, Estimated Creat Clear 153, Estimated GFR 101, Est GFR ( Amer) 122, Glucose 89, Calcium 7.5 L, Phosphorus 3.8, Total Bilirubin 0.6, AST 43, ALT 23, Alkaline Phosphatase 59, Total Protein 5.1 L, Albumin 2.8 L, Globulin 2.3, Albumin/Globulin Ratio 1.2 I & O for Last 24 hours: Intake & Output 09/20/22 09/21/22 09/22/22 09/23/22 11:59 11:59 11:59 11:59 Intake Total 1534 / 1534 1071 / 1071 1360 / 1360 Output Total 1750 / 1750 2600 / 2600 975 / 975 Balance -216 / -216 -1529 / -1529 385 / 385 Weight 230 lb 2.601 oz 228 lb 2.855 oz 226 lb 10.163 oz Constitutional Constitutional: no acute distress *Routine Respiratory Exam Respiratory: Present CTA bilaterally *Routine Cardiovascular Exam Cardiovascular: Present RRR *Routine Extremities Exam Extremities: Absent cyanosis, clubbing or edema *Routine Neurological Exam Neurological: Present alert, oriented X3 and CN II-XII intact Progress Note: A&P Assessment and plan (1) Anemia requiring transfusions: Status: Acute (2) Melena: Status: Acute (3) STEMI (ST elevation myocardial infarction): Status: Acute Assessment and Plan Assessment and Plan for All Diagnoses:: 1.? CAD - coronary stenting 09/12/2022 - subsequent recurrent STEMI 09/20/2022 likely due to medication confusion.? - DAPT with ASA 81 mg daily and Brilinta 90 mg twice daily.? - Echocardiogram shows EF 55% with no wall motion abnormality.? Mildly enlarged aortic root at 4.1 cm with no aortic stenosis or aortic insufficiency. 2.? Profound anemia - with hemoglobin of 4.7 requiring 6 units of blood transfusion with hemoglobin currently 8.9.? No active source of bleeding seen on CT of the abdomen.? History of melena - EGD today negative for active bleed. Duodenitis noted. -Continue IV PPI therapy 3.? Hyperlipidemia - Atorvastatin 80 mg daily 4.? Tobacco use, cessation recommended 5.? Ischemic cardiomyopathy/EF 45% on cath.? - Echo EF 55% with no regional wall motion abnormality.? - Patient is on bisoprolol.? We will add ROBINSON or ARB as blood pressure tolerates.? 6.? Prior history of CVA for which he was previously on Xarelto.
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
--- NOTE | 2022-09-23 12:38 | HMH.OTEV ---
OT Inpatient Evaluation Rehab OT IP Evaluation Start: 09/23/22 12:05 Freq: ONCE Status: Active Protocol: Document 09/23/22 12:26 ZARINAJULIUS (Rec: 09/23/22 12:38 [email or web address] [id number]) Rehab OT IP Assessment Subjective History 56-year-old white male presented to the emergency department due to what he felt was anxiety attacks causing dyspnea and chest discomfort. He was felt to be having a STEMI and taken to the Speech Therapy Assistant with subsequent mechanical thrombectomy of the ramus followed by balloon angioplasty. In talking with the patient today he has been confused on some of his medication with concerned that he has not been taking his antiplatelet therapy since stents were placed on 2021 in [facility]. Patient noted to be acutely anemic with hemoglobin of 4.7. He initially received 4 units of blood and subsequently had fifth prior to today. CT of the abdomen showed no evidence of hemorrhage. He is on IV PPI therapy. Patient was previously on Xarelto for history of CVA this has been discontinued this admission. Patient denies any chest pain at this time but is still quite anxious and states that any movement such as turning over or sitting up results and dizziness and shortness of breath. Echocardiogram performed this morning with results pending at this time. Patient lives in an house with no OBED with dtr. Patient stated to ambulate within short distance at the house, however will use a w/c for longer distance. Hx of CVA back in 2017 wit
[2022-09-23 12:59] LABS: Haptoglobin 256 mg/dL (29-370)
--- NOTE | 2022-09-23 16:56 | EXP.ACUTE.PN ---
Subjective *Date: 09/23/22 *Time: 17:00 Interval history: Patient still reports he has not a bowel movement. He is a little altered this morning, states he is 99% sure he is at the hospital and Candace feels a little confused. Received a dose of Ativan last night. Denies chest pain, nausea, vomiting. N.p.o. this morning for planned EGD. Had an episode last night where he appeared somewhat confused with a repeat hemoglobin obtained at 8.5. Was transfused 1 unit packed red blood cells. Hemodynamically stable this morning, afebrile, tolerating p.o. meds. Medical Exam Vital signs and Labs for Last 24 Hours: Vital Signs Temp Pulse Pulse Resp BP BP Pulse Ox 09/23/22 16:00 97.9 F 83 22 103/64 L 96 09/23/22 16:00 70 09/23/22 09:07 70 09/23/22 07:59 73 18 86/50 L 97 09/23/22 08:05 77 18 101/60 L 97 09/23/22 07:49 66 18 87/41 L 100 09/23/22 07:40 97.2 F L 68 18 80/38 L 100 09/23/22 04:00 80 09/23/22 04:00 98.4 F 75 18 127/59 L 97 09/23/22 02:45 98.2 F 75 18 104/62 L 97 09/23/22 01:45 97.9 F 76 18 94/55 L 97 09/23/22 00:45 98 F 75 16 85/56 L 98 09/22/22 20:00 80 09/23/22 00:00 80 09/22/22 23:55 98.6 F 09/22/22 23:45 97.7 F 72 16 95/62 L 97 09/22/22 23:30 98.0 F 84 18 99/58 L 98 09/22/22 23:15 97.7 F 85 18 105/64 L 97 09/22/22 23:00 97.6 F 18 100/66 L 99 09/22/22 22:55 97.8 F 83 18 91/73 L 99 09/22/22 22:50 97.6 F 79 18 95/57 L 97 09/22/22 22:45 97.6 F 85 18 97/67 L 98 09/22/22 22:36 97.5 F L 81 18 89/53 L 99 09/22/22 19:46 98.4 F 87 18 98/55 L 100 Intake and Output 09/23/22 09/23/22 09/23/22 07:59 15:59 23:59 Intake Total 250 / 490 240 / 490 Output Total 500 / 1150 650 / 1150 Balance 250 / -660 -260 / -660 -650 / -660 Intake: Intake, Oral Amount 240 / 240 Intake (Blood Product) Amt 250 / 250 Red Blood Cells Unit 250 / 250 [id number] Output: Output, Urine Amount 500 / 1150 650 / 1150 Other: Weight 102.8 kg Patient Weight 09/23/22 23:59 Weight 102.8 kg Laboratory Results - last 24 hr 09/20/22 14:00: Blood Type O Positive, Antibody Screen Negative, Crossmatch (AHG) See Detail 09/21/22 19:10: Haptoglobin 256 09/22/22 22:00: WBC 19.0 H, RBC 2.50 L, Hgb 8.0 L, Hct 23.4 L, MCV 93.5, MCH 32.0 H, MCHC 34.2, RDW 17.4, Plt Count 337, MPV 8.0, Neut % (Auto) 74.1, Lymph % (Auto) 19.2, [place] % (Auto) 4.9, Eos % (Auto) 1.3, Baso % (Auto) 0.6, Neut # (Auto) 14.1 H, Lymph # (Auto) 3.6, [place] # (Auto) 0.9, Eos # (Auto) 0.2, Baso # (Auto) 0.1, Total Counted 100, Neutrophils % (Manual) 61, Lymphocytes % (Manual) 25, Monocytes % (Manual) 10 H, Eosinophils % (Manual) 3, Basophils % (Manual) 1.0, Platelet Estimate Normal, Polychromasia 1+ 09/23/22 04:00: Lactate 0.8 09/23/22 04:00: WBC 18.4 H, RBC 2.78 L, Hgb 8.9 L D, Hct 26.5 L, MCV 95.1 H, MCH 32.1 H, MCHC 33.8, RDW 16.9, Plt Count 320, MPV 8.5, Neut % (Auto) 75.6, Lymph % (Auto) 17.6, [place] % (Auto) 4.9, Eos % (Auto) 1.4, Baso % (Auto) 0.6, Neut # (Auto) 13.9 H, Lymph # (Auto) 3.2, [place] # (Auto) 0.9, Eos # (Auto) 0.3, Baso # (Auto) 0.1 09/23/22 04:00: Sodium 132 L, Potassium 3.8, Chloride 102, Carbon Dioxide 26, Anion Gap 7.8, BUN 14 D, Creatinine 0.80, Estimated Creat Clear 153, Estimated GFR 101, Est GFR ( Amer) 122, Glucose 89, Calcium 7.5 L, Phosphorus 3.8, Total Bilirubin 0.6, AST 43, ALT 23, Alkaline Phosphatase 59, Total Protein 5.1 L, Albumin 2.8 L, Globulin 2.3, Albumin/Globulin Ratio 1.2 I & O for Labs for Last 24 Hours: Intake & Output 09/20/22 09/21/22 09/22/22 09/23/22 23:59 23:59 23:59 23:59 Intake Total 1030 / 1030 1229 / 1229 1456 / 1456 490 / 490 Output Total 1000 / 1000 2300 / 2300 2024 1150 / 1150 Balance -1071 / -1071 -569 / -569 -660 / -660 Weight 102.058 kg 104.4 kg 103 kg 102.8 kg Microbiology Reports for the L
--- NOTE | 2022-09-23 18:18 | PC.NURSE ---
No bowel movement during shift. VS stable after EGD. Patient alert and oriented. Lung sounds clear. Complaints of chronic back pain, pain medication given. No other changes noted.
[2022-09-24] VITALS (7 sets, daily range): BP systolic 101–153; BP diastolic 50–89; PULSE 66–104; RESP 16–24; TEMP 36.5–37.2; O2SAT 94–100; BMI 30.7
--- NOTE | 2022-09-24 05:13 | PC.NURSE ---
Pt. got an enema with no results. No other changes noted.
[2022-09-24 06:57] LABS: Basophils # 0.1 K/mm3 (0-0.2); Basophils % 0.7 % (0.1-2.0); Eosinophils # 0.3 K/mm3 (0.0-0.4); Eosinophils % 2.5 % (0.1-12.0); Hematocrit 28.1 % (42.0-52.0); Hemoglobin 9.3 g/dL (14.1-18.0); Lymphocytes # 2.2 K/mm3 (0.7-4.5); Lymphocytes % 17.5 % (10-50); Mean Corpuscular Hemoglobin 31.6 pg (27.0-31.2); Mean Corpuscular Volume 95.8 fl (80-94); Mean Platelet Volume 8.4 fl (7.4-10.4); Monocytes # 0.7 K/mm3 (0.1-1.0); Monocytes % 5.6 % (1.7-9.3); Neutrophils # 9.5 K/mm3 (1.8-7.8); Neutrophils % 73.7 % (37.0-80.0); Platelet Count 353 K/mm3 (142-424); Red Blood Count 2.93 M/mm3 (4.60-6.20); Red Cell Distribution Width 16.7 % (11.5-17.5); White Blood Count 12.8 K/mm3 (4.8-10.8)
[2022-09-24 06:59] LABS: Anion Gap 7.7 mEq/L (5-15); Blood Urea Nitrogen 12 mg/dl (9-20); Calcium 7.6 mg/dl (8.4-10.2); Carbon Dioxide 27 mmol/L (22.0-30.0); Chloride 103 mmol/L (98-107); Creatinine Clearance Estimated 136 mL/min (50-200); Estimated Glomerular Filt Rate 88 ml/min (>60); GFR (African American) 106 ML/MIN (>60); Glucose 98 mg/dl (74-100); Potassium 3.7 mmoL/L (3.5-5.1); Sodium 134 mmol/L (136-145)
--- NOTE | 2022-09-24 08:43 | P.PN_ITS ---
Subjective Patient reports: no new complaints Exam Data for Last 24 hours Vital signs and Labs for Last 24 Hours: Temp Pulse Resp BP Pulse Ox 98.7 F 80 20 117/72 99 09/24/22 08:00 09/24/22 08:00 09/24/22 08:00 09/24/22 08:00 09/24/22 08:00 Laboratory Results - last 24 hr 09/21/22 19:10: Haptoglobin 256 09/24/22 05:56: WBC 12.8 H D, RBC 2.93 L, Hgb 9.3 L, Hct 28.1 L, MCV 95.8 H, MCH 31.6 H, MCHC 33.0, RDW 16.7, Plt Count 353, MPV 8.4, Neut % (Auto) 73.7, Lymph % (Auto) 17.5, [place] % (Auto) 5.6, Eos % (Auto) 2.5, Baso % (Auto) 0.7, Neut # (Auto) 9.5 H, Lymph # (Auto) 2.2, [place] # (Auto) 0.7, Eos # (Auto) 0.3, Baso # (Auto) 0.1 09/24/22 05:56: Sodium 134 L, Potassium 3.7, Chloride 103, Carbon Dioxide 27, Anion Gap 7.7, BUN 12, Creatinine 0.90, Estimated Creat Clear 136, Estimated GFR 88, Est GFR ( Amer) 106, Glucose 98, Calcium 7.6 L I & O for Last 24 hours: Intake & Output 09/21/22 09/22/22 09/23/22 09/24/22 11:59 11:59 11:59 11:59 Intake Total 1534 / 1534 1071 / 1071 1360 / 1360 900 / 900 Output Total 1750 / 1750 2600 / 2600 1125 / 1475 1950 / 1950 Balance -216 / -216 -1529 / -1529 235 / -115 -1050 / -1050 Weight 230 lb 2.601 oz 228 lb 2.855 oz 226 lb 10.163 oz 226 lb 6.636 oz Microbiology Reports for the Last 24 Hours: Microbiology 09/21/22 11:20 Blood Blood Culture - Preliminary NO GROWTH AFTER 48 HOURS 09/21/22 11:15 Blood Blood Culture - Preliminary NO GROWTH AFTER 48 HOURS Constitutional Constitutional: no acute distress *Routine Respiratory Exam Respiratory: Absent respiratory distress *Routine Cardiovascular Exam Cardiovascular: Absent tachycardia Progress Note: A&P Assessment and plan (1) Acute blood loss anemia: Status: Acute Assessment and plan: Hemoglobin stable over the past 24 hours Continue PPI Continue management as per primary service UGI/SBFT followed by capsule endoscopy (in the outpatient setting in the near future) warranted Colonoscopy in the relatively near future (when deemed appropriate from an overall medical/cardiac standpoint) in the outpatient setting also warranted (2) Duodenitis: Status: Acute Assessment and plan: Possible source of recent blood loss. Small/punctate ulcer along duodenal sweep remains a possibility (as this would be exceptionally difficult to visualize endoscopically in the absence of active bleeding). Continue PPI Follow-up pathology from recent EGD (3) Melena: Status: Acute (4) STEMI (ST elevation myocardial infarction): Status: Acute
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
[2022-09-24 10:32] LABS: Peripheral Smear Review Scanned Result
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
[2022-09-24 11:38] LABS: Cholesterol 69 mg/dl (140-200); HDL Cholesterol 23 mg/dl (40-60); Triglycerides 107 mg/dl (30-150); VLDL Cholesterol 21 mg/dL (0-40)
[2022-09-24 11:51] LABS: Direct LDL Cholesterol < 30.00 mg/dL (100-129)
--- NOTE | 2022-09-24 13:34 | CT_ITS ---
FINAL REPORT TECHNIQUE: Multiple axial CT sections were performed from the foramen magnum to the vertex. Coronal reformatted images were also obtained. Precontrast and postcontrast injection images were obtained. This study was performed with technique to keep radiation doses as low as reasonably achievable, (ALARA). Individualized dose reduction techniques using automated exposure control or adjustment of mA and/or kV according to the patient size were employed. CLINICAL HISTORY: dizziness, syncope, hx stroke FINDINGS: CT HEAD/BRAIN W & W/O CONTRAST The ventricles are normal in size. There is age-appropriate atrophy. There is no evidence of hemorrhage. There is chronic right anterior cerebral artery territory infarct with encephalomalacia. There is chronic right basal ganglia lacunar infarct. No masses are identified. No extra-axial fluid collection is seen. There is mild mucosal thickening the left maxillary sinus. No osseous abnormality is seen on the bone window images. Postcontrast images demonstrate no abnormal enhancement. IMPRESSION: Age appropriate atrophy. No acute intracranial abnormality. Reviewed, Interpreted and Dictated by Stanislav Restrepo III, MD Transcribed by Zenaida Pastor Authenticated and . [facility]
--- NOTE | 2022-09-24 18:45 | EXP.ACUTE.PN ---
Subjective *Date: 09/24/22 *Time: 20:07 Interval history: Patient hemodynamically stable at rest. Initial plan was to discharge home today as his hemoglobin stable, tolerating p.o. intake, on goal-directed therapy. Upon standing, patient became diaphoretic and had syncopal event. Discharge canceled. Family at bedside states they are unable to take patient home. Rediscussed placement with patient as he has been resistant previously. At this time he does not have many options. He is tolerating oral intake. Had small bowel movement last night after enema. No other black stools. Hemoglobin remained stable. Received bisoprolol this morning, no irbesartan administered. Complains of mild shortness of breath however has no oxygen requirement and is satting in the mid 90s on room air. No cough, chest pain. Does report occasional anxiety. Medical Exam Vital signs and Labs for Last 24 Hours: Vital Signs Temp Pulse Pulse Resp BP BP Pulse Ox 09/24/22 16:00 76 09/24/22 16:00 98.9 F 75 18 115/50 L 99 09/24/22 08:00 80 09/24/22 13:00 80 116/68 99 09/24/22 13:00 67 106/67 L 98 09/24/22 13:00 96 H 105/51 L 97 09/24/22 13:00 104 H 134/89 98 09/24/22 12:00 97.7 F 71 24 153/76 H 100 09/24/22 08:00 98.7 F 80 20 117/72 99 09/24/22 04:00 70 09/24/22 04:00 98.7 F 75 18 111/75 98 09/24/22 00:00 70 09/23/22 20:00 97 09/24/22 00:00 98.1 F 66 17 136/64 94 L 09/23/22 20:00 98.1 F 89 18 132/68 96 09/23/22 20:00 80 Intake and Output 09/24/22 09/24/22 09/24/22 07:59 15:59 23:59 Intake Total 480 / 1080 600 / 1080 Output Total 800 / 1576 400 / 1576 376 / 1576 Balance -800 / -496 80 / -496 224 / -496 Intake: Intake, Oral Amount 480 / 1080 600 / 1080 Output: Output, Urine Amount 800 / 1576 400 / 1576 376 / 1576 Other: Number of Unmeasured Voids 1 Weight 102.7 kg Patient Weight 09/24/22 23:59 Weight 102.7 kg Laboratory Results - last 24 hr 09/20/22 14:00: Crossmatch (AHG) See Detail 09/24/22 05:56: WBC 12.8 H D, RBC 2.93 L, Hgb 9.3 L, Hct 28.1 L, MCV 95.8 H, MCH 31.6 H, MCHC 33.0, RDW 16.7, Plt Count 353, MPV 8.4, Neut % (Auto) 73.7, Lymph % (Auto) 17.5, [place] % (Auto) 5.6, Eos % (Auto) 2.5, Baso % (Auto) 0.7, Neut # (Auto) 9.5 H, Lymph # (Auto) 2.2, [place] # (Auto) 0.7, Eos # (Auto) 0.3, Baso # (Auto) 0.1 09/24/22 05:56: Sodium 134 L, Potassium 3.7, Chloride 103, Carbon Dioxide 27, Anion Gap 7.7, BUN 12, Creatinine 0.90, Estimated Creat Clear 136, Estimated GFR 88, Est GFR ( Amer) 106, Glucose 98, Calcium 7.6 L 09/24/22 05:56: Triglycerides 107, Cholesterol 69 L, LDL Cholesterol Direct < 30.00 L, VLDL Cholesterol 21, HDL Cholesterol 23 L, Cholesterol/HDL Ratio 3.0 I & O for Labs for Last 24 Hours: Intake & Output 09/21/22 09/22/22 09/23/22 09/24/22 23:59 23:59 23:59 23:59 Intake Total 1229 / 1229 1456 / 1456 1150 / 1150 1080 / 1080 Output Total 2300 / 2300 2024 / 2024 1150 / 1850 1576 / 1576 Balance -1071 / -1071 -569 / -569 0 / -700 -496 / -496 Weight 104.4 kg 103 kg 102.8 kg 102.7 kg Constitutional: Present no acute distress, obese, chronically ill appearing and disheveled Head: Present atraumatic and normocephalic ENT: Present normal exam Neck: Present normal inspection Respiratory: Present normal respiratory effort; Absent accessory muscle use, rhonchi, wheezes or crackles Cardiac: Present Reg Rate and Rhythm GI: Present soft and normal bowel sounds; Absent distention or tenderness Extremities: Present normal inspection and full ROM Skin: Present intact; Absent erythema Comment:: Long overgrown toenails, seborrhea diffusely on chest and scalp Neuro: Present Grossly Intact, alert, awake and moves all extremities Comment:: Oriented to person, place, time. Assessment and Plan *Assessment and plan (1) Syncope: Status: Acute Category: Medical Code(s): R55 -
--- NOTE | 2022-09-24 20:25 | PC.NURSE ---
Patient was to be discharged but when trying to ambulate form chair to wheelchair, pt began to get very dizzy, lost control of movement, lost control of bladder. Patient had to be helped to wheelchair with maximum assistance. VS stable. Dr. Be called to bedside and discharge cancelled. Orthostatic pressures obtained. Patient alert and oriented during entire event
[2022-09-25] VITALS (7 sets, daily range): BP systolic 94–137; BP diastolic 50–75; PULSE 60–77; RESP 14–20; TEMP 36.4–37.1; O2SAT 95–100; BMI 29.7
--- NOTE | 2022-09-25 05:31 | PC.NURSE ---
No acute changes noted over night.
[2022-09-25 08:53] LABS: Basophils # 0.2 K/mm3 (0-0.2); Basophils % 1.5 % (0.1-2.0); Eosinophils # 0.3 K/mm3 (0.0-0.4); Eosinophils % 2.6 % (0.1-12.0); Hematocrit 29.9 % (42.0-52.0); Hemoglobin 9.6 g/dL (14.1-18.0); Lymphocytes % 15.6 % (10-50); Mean Corpuscular Hemoglobin 31.7 pg (27.0-31.2); Monocytes # 0.5 K/mm3 (0.1-1.0); Monocytes % 3.8 % (1.7-9.3); Neutrophils # 9.8 K/mm3 (1.8-7.8); Neutrophils % 76.6 % (37.0-80.0); Platelet Count 382 K/mm3 (142-424); Red Blood Count 3.02 M/mm3 (4.60-6.20); White Blood Count 12.8 K/mm3 (4.8-10.8)
[2022-09-25 08:54] LABS: Alanine Aminotransferase 38 U/L (12-78); Albumin Level 2.9 g/dl (3.5-5.0); Albumin/Globulin Ratio 1.2 (1.1-1.8); Alkaline Phosphatase 76 U/L (38-126); Anion Gap 10.8 mEq/L (5-15); Aspartate Amino Transferase 40 U/L (17-59); Bilirubin,Total 0.4 mg/dl (0.2-1.3); Blood Urea Nitrogen 11 mg/dl (9-20); Calcium 7.7 mg/dl (8.4-10.2); Carbon Dioxide 24 mmol/L (22.0-30.0); Chloride 105 mmol/L (98-107); Creatinine Clearance Estimated 132 mL/min (50-200); Estimated Glomerular Filt Rate 88 ml/min (>60); GFR (African American) 106 ML/MIN (>60); Globulin 2.4 g/dL (1.3-3.2); Glucose 128 mg/dl (74-100); Potassium 3.8 mmoL/L (3.5-5.1); Sodium 136 mmol/L (136-145); Total Protein,Serum 5.3 g/dl (6.3-8.2)
--- NOTE | 2022-09-25 10:08 | P.PN_ITS ---
Subjective *Date: 09/25/22 *Time: 10:08 Medical Exam Vital signs and Labs for Last 24 Hours: Vital Signs Temp Pulse Pulse Resp BP BP Pulse Ox 09/25/22 08:00 97.6 F 72 20 104/59 L 99 09/25/22 04:00 60 09/25/22 04:00 98.7 F 77 14 94/55 L 99 09/25/22 00:00 70 09/25/22 00:00 98.4 F 65 16 96/58 L 99 09/24/22 20:00 98 09/24/22 20:00 70 09/24/22 20:00 98.0 F 69 16 101/55 L 96 09/24/22 16:00 76 09/24/22 16:00 98.9 F 75 18 115/50 L 99 09/24/22 13:00 80 116/68 99 09/24/22 13:00 67 106/67 L 98 09/24/22 13:00 96 H 105/51 L 97 09/24/22 13:00 104 H 134/89 98 09/24/22 12:00 97.7 F 71 24 153/76 H 100 Intake and Output 09/24/22 09/25/22 09/25/22 23:59 07:59 15:59 Intake Total 600 / 1080 120 / 120 Output Total 726 / 3151 1150 / 1150 Balance -126 / -2071 -1150 / -1030 120 / -1030 Intake: Intake, Oral Amount 600 / 1080 120 / 120 Output: Output, Urine Amount 726 / 3151 1150 / 1150 Other: Weight 99.382 kg Patient Weight 09/25/22 23:59 Weight 99.382 kg Laboratory Results - last 24 hr 09/20/22 14:00: Crossmatch (AHG) See Detail 09/24/22 05:56: Triglycerides 107, Cholesterol 69 L, LDL Cholesterol Direct < 30.00 L, VLDL Cholesterol 21, HDL Cholesterol 23 L, Cholesterol/HDL Ratio 3.0 09/25/22 08:21: WBC 12.8 H, RBC 3.02 L, Hgb 9.6 L, Hct 29.9 L, MCV 99.0 H, MCH 31.7 H, MCHC 32.0, RDW 17.0, Plt Count 382, MPV 8.0, Neut % (Auto) 76.6, Lymph % (Auto) 15.6, [place] % (Auto) 3.8, Eos % (Auto) 2.6, Baso % (Auto) 1.5, Neut # (Auto) 9.8 H, Lymph # (Auto) 2.0, [place] # (Auto) 0.5, Eos # (Auto) 0.3, Baso # (Auto) 0.2 09/25/22 08:21: Sodium 136, Potassium 3.8, Chloride 105, Carbon Dioxide 24, Anion Gap 10.8, BUN 11, Creatinine 0.90, Estimated Creat Clear 132, Estimated GFR 88, Est GFR ( Amer) 106, Glucose 128 H, Calcium 7.7 L, Total Bilirubin 0.4, AST 40, ALT 38 D, Alkaline Phosphatase 76, Total Protein 5.3 L, Albumin 2.9 L, Globulin 2.4, Albumin/Globulin Ratio 1.2 I & O for Labs for Last 24 Hours: Intake & Output 09/22/22 09/23/22 09/24/22 09/25/22 23:59 23:59 23:59 23:59 Intake Total 1456 / 1456 1150 / 1150 1080 / 1080 120 / 120 Output Total 2024 / 2024 1150 / 1850 2201 / 3151 1150 / 1150 Balance -569 / -569 0 / -700 -1121 / -2071 -1030 / -1030 Weight 103 kg 102.8 kg 102.7 kg 99.382 kg The patient's infection will respond to the chosen ABx?: Yes (EMPIRIC THERAPY) Is the patient receiving the right drug, dose, and route?: Yes Could a more targeted ABx be ordered?: No
--- NOTE | 2022-09-25 10:48 | EXP.CARD.PN ---
Subjective Subjective Date: 09/25/22 Time: 10:48 Principal diagnosis: STEMI, anemia Interval history: 56-year-old white male sitting in bedside chair in no acute distress. Patient is more relaxed today and states he feels better than he did yesterday. He has been up in the room with assistance without significant dizziness today. Blood pressure medications have been discontinued to allow his blood pressure to increase due to his history of stroke and orthostatic hypotension Exam Data for Last 24 hours Vital signs and Labs for Last 24 Hours: Temp Pulse Resp BP Pulse Ox 97.6 F 72 20 104/59 L 99 09/25/22 08:00 09/25/22 08:00 09/25/22 08:00 09/25/22 08:00 09/25/22 08:00 Laboratory Results - last 24 hr 09/20/22 14:00: Crossmatch (AHG) See Detail 09/24/22 05:56: Triglycerides 107, Cholesterol 69 L, LDL Cholesterol Direct < 30.00 L, VLDL Cholesterol 21, HDL Cholesterol 23 L, Cholesterol/HDL Ratio 3.0 09/25/22 08:21: WBC 12.8 H, RBC 3.02 L, Hgb 9.6 L, Hct 29.9 L, MCV 99.0 H, MCH 31.7 H, MCHC 32.0, RDW 17.0, Plt Count 382, MPV 8.0, Neut % (Auto) 76.6, Lymph % (Auto) 15.6, [place] % (Auto) 3.8, Eos % (Auto) 2.6, Baso % (Auto) 1.5, Neut # (Auto) 9.8 H, Lymph # (Auto) 2.0, [place] # (Auto) 0.5, Eos # (Auto) 0.3, Baso # (Auto) 0.2 09/25/22 08:21: Sodium 136, Potassium 3.8, Chloride 105, Carbon Dioxide 24, Anion Gap 10.8, BUN 11, Creatinine 0.90, Estimated Creat Clear 132, Estimated GFR 88, Est GFR ( Amer) 106, Glucose 128 H, Calcium 7.7 L, Total Bilirubin 0.4, AST 40, ALT 38 D, Alkaline Phosphatase 76, Total Protein 5.3 L, Albumin 2.9 L, Globulin 2.4, Albumin/Globulin Ratio 1.2 I & O for Last 24 hours: Intake & Output 09/22/22 09/23/22 09/24/22 09/25/22 11:59 11:59 11:59 11:59 Intake Total 1071 / 1071 1360 / 1360 1140 / 1140 960 / 960 Output Total 2600 / 2600 1125 / 1475 2475 / 2475 1876 / 1876 Balance -1529 / -1529 235 / -115 -1335 / -1335 -916 / -916 Weight 228 lb 2.855 oz 226 lb 10.163 oz 226 lb 6.636 oz 219 lb 1.6 oz Constitutional Constitutional: no acute distress *Routine Respiratory Exam Respiratory: Present CTA bilaterally *Routine Cardiovascular Exam Cardiovascular: Present RRR Progress Note: A&P Assessment and plan (1) Syncope: Status: Acute (2) Acute blood loss anemia: Status: Acute (3) STEMI (ST elevation myocardial infarction): Status: Acute (4) Melena: Status: Acute (5) Coronary artery disease: Status: Acute (6) Obesity (BMI 30-39.9): Status: Acute (7) Hyponatremia: Status: Acute (8) Housing situation unstable: Status: Acute (9) Depression: Status: Acute (10) Duodenitis: Status: Acute (11) Anemia requiring transfusions: Status: Acute Assessment and Plan Assessment and Plan for All Diagnoses:: 1.? CAD/STEMI - coronary stenting 09/12/2022 - subsequent recurrent STEMI 09/20/2022 likely due to medication confusion.? Mechanical thrombectomy with POBA of circumflex artery. EF 45% with mild anterior wall hypokinesis. The LVEDP 25 mm Hg - DAPT with ASA 81 mg daily and Brilinta 90 mg twice daily.? - Echocardiogram shows EF 55% with no wall motion abnormality.? Mildly enlarged aortic root at 4.1 cm with no aortic stenosis or aortic insufficiency. 2.? Profound anemia - with hemoglobin of 4.7 requiring 6 units of blood transfusion with hemoglobin currently 9.6.? No active source of bleeding seen on CT of the abdomen.? History of melena - EGD negative for active bleed. Duodenitis noted. -Continue PPI therapy 3.? Hyperlipidemia - Atorvastatin 80 mg daily -LDL < 30, cholesterol 69, triglycerides 107, HDL 23 on 09/24/2022 4.? Tobacco use, cessation recommended 5.? Ischemic cardiomyopathy/EF 45% on cath.? - Echo EF 55% with no regional wall motion abnormality.? - Patient intolerant of ROBINSON/ARB and beta-suzie due to orthostatic hypotension. 6.? Prior history of CVA for which he was previously on Xarelto.? This has been discont
--- NOTE | 2022-09-25 18:22 | EXP.ACUTE.PN ---
Subjective *Date: 09/25/22 *Time: 18:22 Interval history: Patient feeling better this morning per his report. In bedside chair. Able to stand without dizziness on exam this morning. [place] nausea, vomiting, diarrhea, chest pain, shortness of breath. Still states he has not had a bowel movement. Tolerating p.o. intake without difficulty. Medical Exam Vital signs and Labs for Last 24 Hours: Vital Signs Temp Pulse Pulse Resp BP Pulse Ox 09/25/22 16:00 73 09/25/22 12:00 65 09/25/22 08:00 73 09/25/22 16:00 97.7 F 73 20 115/68 100 09/25/22 12:00 98.0 F 77 18 137/75 98 09/25/22 08:00 97.6 F 72 20 104/59 L 99 09/25/22 04:00 60 09/25/22 04:00 98.7 F 77 14 94/55 L 99 09/25/22 00:00 70 09/25/22 00:00 98.4 F 65 16 96/58 L 99 09/24/22 20:00 98 09/24/22 20:00 70 09/24/22 20:00 98.0 F 69 16 101/55 L 96 Intake and Output 09/25/22 09/25/22 09/25/22 07:59 15:59 23:59 Intake Total 120 / 238 118 / 238 Output Total 1149 Balance -1150 / -1737 120 / -1737 -707 / -1737 Intake: Intake, Oral Amount 120 / 238 118 / 238 Output: Output, Urine Amount 1149 Other: Weight 99.382 kg Patient Weight 09/25/22 23:59 Weight 99.382 kg Laboratory Results - last 24 hr 09/25/22 08:21: WBC 12.8 H, RBC 3.02 L, Hgb 9.6 L, Hct 29.9 L, MCV 99.0 H, MCH 31.7 H, MCHC 32.0, RDW 17.0, Plt Count 382, MPV 8.0, Neut % (Auto) 76.6, Lymph % (Auto) 15.6, [place] % (Auto) 3.8, Eos % (Auto) 2.6, Baso % (Auto) 1.5, Neut # (Auto) 9.8 H, Lymph # (Auto) 2.0, [place] # (Auto) 0.5, Eos # (Auto) 0.3, Baso # (Auto) 0.2 09/25/22 08:21: Sodium 136, Potassium 3.8, Chloride 105, Carbon Dioxide 24, Anion Gap 10.8, BUN 11, Creatinine 0.90, Estimated Creat Clear 132, Estimated GFR 88, Est GFR ( Amer) 106, Glucose 128 H, Calcium 7.7 L, Total Bilirubin 0.4, AST 40, ALT 38 D, Alkaline Phosphatase 76, Total Protein 5.3 L, Albumin 2.9 L, Globulin 2.4, Albumin/Globulin Ratio 1.2 I & O for Labs for Last 24 Hours: Intake & Output 09/22/22 09/23/22 09/24/22 09/25/22 23:59 23:59 23:59 23:59 Intake Total 1456 / 1456 1150 / 1150 1080 / 1080 238 / 238 Output Total 2024 / 2024 1150 / 1850 2201 / 3151 1974 / 1974 Balance -569 / -569 0 / -700 -1121 / -2071 -1737 / -1737 Weight 103 kg 102.8 kg 102.7 kg 99.382 kg Microbiology Reports for the Last 24 Hours: Microbiology 09/21/22 17:02 Urine,Clean Catch Urine Culture - Preliminary NO GROWTH AFTER 24 HOURS Constitutional: Present no acute distress, obese, chronically ill appearing and disheveled Head: Present atraumatic and normocephalic ENT: Present normal exam Neck: Present normal inspection Respiratory: Present normal respiratory effort; Absent accessory muscle use, rhonchi, wheezes or crackles Cardiac: Present Reg Rate and Rhythm GI: Present soft and normal bowel sounds; Absent distention or tenderness Extremities: Present normal inspection and full ROM Skin: Present intact; Absent erythema Comment:: Long overgrown toenails, seborrhea diffusely on chest and scalp Neuro: Present Grossly Intact, alert, awake, oriented x 3 and moves all extremities (Decree strength in left upper extremity.) Assessment and Plan *Assessment and plan (1) Syncope: Status: Acute Category: Medical Code(s): R55 - Syncope and collapse (2) Acute blood loss anemia: Status: Acute Category: Medical Code(s): D62 - Acute posthemorrhagic anemia (3) STEMI (ST elevation myocardial infarction): Status: Acute Category: Medical Code(s): I21.3 - ST elevation (STEMI) myocardial infarction of unspecified site (4) Melena: Status: Acute Category: Medical Code(s): K92.1 - Melena (5) Coronary artery disease: Status: Acute Category: Medical Code(s): I25.10 - Atherosclerotic heart disease of [place]
[2022-09-25 19:03] LABS: Hematocrit 28.5 % (42.0-52.0); Hemoglobin 9.3 g/dL (14.1-18.0)
[2022-09-26] VITALS (8 sets, daily range): BP systolic 92–107; BP diastolic 49–63; PULSE 60–82; RESP 16–20; TEMP 36.4–37; O2SAT 98–100; BMI 29.1
--- NOTE | 2022-09-26 05:47 | PC.NURSE ---
pt restless through the night, pt is alert and oriented x4, pt with x2 moderate to large size pasty black tarry stools noted, pt incontinent of stool and urine at times and requires staff to change brief, pt with weakness and requires assist x2, pt denies pain, telemetry reveals nsr, vss, maps have been 66-68, no other issues or concerns at this time. no acute distress
[2022-09-26 07:22] LABS: Blood Urea Nitrogen 10 mg/dl (9-20); Calcium 7.8 mg/dl (8.4-10.2); Carbon Dioxide 25 mmol/L (22.0-30.0); Chloride 105 mmol/L (98-107); Creatinine Clearance Estimated 129 mL/min (50-200); Estimated Glomerular Filt Rate 88 ml/min (>60); GFR (African American) 106 ML/MIN (>60); Glucose 100 mg/dl (74-100); Sodium 136 mmol/L (136-145)
--- NOTE | 2022-09-26 22:04 | EXP.ACUTE.PN ---
Subjective *Date: 09/26/22 *Time: 22:04 Interval history: Patient feeling well this morning per his report. In bedside chair. Able to stand without dizziness on exam this morning. Denies nausea, vomiting, diarrhea, chest pain, shortness of breath. Had a small BM last night. Tolerating p.o. intake without difficulty. Medical Exam Vital signs and Labs for Last 24 Hours: Vital Signs Temp Pulse Pulse Resp BP Pulse Ox 09/26/22 16:00 60 09/26/22 16:00 97.6 F 82 18 92/62 L 100 09/26/22 12:00 77 09/26/22 08:00 70 09/26/22 11:59 97.8 F 75 20 99/63 L 100 09/26/22 08:59 97.8 F 78 18 107/58 L 98 09/26/22 04:00 65 09/26/22 04:00 98.5 F 72 16 103/49 L 98 09/26/22 00:00 70 09/25/22 23:58 98.7 F 69 16 100/50 L 97 Intake and Output 09/26/22 09/26/22 09/26/22 07:59 15:59 23:59 Intake Total 480 / 600 120 / 600 Output Total 0 / 300 300 / 300 Balance 0 / 300 180 / 300 120 / 300 Intake: Intake, Oral Amount 480 / 600 120 / 600 Output: Output, Urine Amount 0 / 300 300 / 300 Other: Number of Unmeasured Voids 1 Number of Bowel Movements 1 Weight 97.5 kg Patient Weight 09/26/22 23:59 Weight 97.5 kg Laboratory Results - last 24 hr 09/26/22 06:55: Sodium 136, Potassium 4.0, Chloride 105, Carbon Dioxide 25, Anion Gap 10.0, BUN 10, Creatinine 0.90, Estimated Creat Clear 129, Estimated GFR 88, Est GFR ( Amer) 106, Glucose 100 D, Calcium 7.8 L I & O for Labs for Last 24 Hours: Intake & Output 09/23/22 09/24/22 09/25/22 09/26/22 23:59 23:59 23:59 23:59 Intake Total 1150 / 1150 1080 / 1080 238 / 238 600 / 600 Output Total 1150 / 1850 2201 / 3151 1974 300 / 300 Balance 0 / -700 -1121 / -2071 -1737 / -1736 300 / 300 Weight 102.8 kg 102.7 kg 99.382 kg 97.5 kg Microbiology Reports for the Last 24 Hours: Microbiology 09/21/22 17:02 Urine,Clean Catch Urine Culture - Final NO GROWTH AFTER 48 HOURS 09/21/22 11:20 Blood Blood Culture - Final NO GROWTH AFTER 5 DAYS 09/21/22 11:15 Blood Blood Culture - Final NO GROWTH AFTER 5 DAYS Constitutional: Present no acute distress, obese, chronically ill appearing and disheveled Head: Present atraumatic and normocephalic ENT: Present normal exam Neck: Present normal inspection Respiratory: Present normal respiratory effort; Absent accessory muscle use, rhonchi, wheezes or crackles Cardiac: Present Reg Rate and Rhythm GI: Present soft and normal bowel sounds; Absent distention or tenderness Extremities: Present normal inspection and full ROM Skin: Present intact; Absent erythema Comment:: Long overgrown toenails, seborrhea diffusely on chest and scalp Neuro: Present Grossly Intact, alert, awake, oriented x 3 and moves all extremities (Decree strength in left upper extremity.) Assessment and Plan *Assessment and plan (1) Syncope: Status: Acute Category: Medical Code(s): R55 - Syncope and collapse (2) Acute blood loss anemia: Status: Acute Category: Medical Code(s): D62 - Acute posthemorrhagic anemia (3) STEMI (ST elevation myocardial infarction): Status: Acute Category: Medical Code(s): I21.3 - ST elevation (STEMI) myocardial infarction of unspecified site (4) Melena: Status: Acute Category: Medical Code(s): K92.1 - Melena (5) Coronary artery disease: Status: Acute Category: Medical Code(s): I25.10 - Atherosclerotic heart disease of [place] coronary artery without angina pectoris (6) Obesity (BMI 30-39.9): Status: Acute Category: Medical Code(s): E66.9 - Obesity, unspecified (7) Hyponatremia: Status: Acute Category: Medical Code(s): E87.1 - Hypo-osmolality and hyponatremia (8) Housing situation unstable: Status: Acute Category
[2022-09-27] VITALS (9 sets, daily range): BP systolic 102–192; BP diastolic 45–109; PULSE 60–100; RESP 16–20; TEMP 36.6–37.1; O2SAT 93–99; BMI 29.0
--- NOTE | 2022-09-27 | CT_ITS ---
PROCEDURE INFORMATION: Exam: CTA Head With Contrast, Arteriography Exam date and time: 09/27/2022 3:11 PM Age: 56 years old Clinical indication: Syncope and collapse TECHNIQUE: Imaging protocol: Computed tomographic angiography of the head with contrast. Exam focused on the arteries. 3D rendering (Not supervised by radiologist): MIP and/or 3D reconstructed images were created by the technologist. Radiation optimization: All CT scans at this facility use at least one of these dose optimization techniques: automated exposure control; mA and/or kV adjustment per patient size (includes targeted exams where dose is matched to clinical indication); or iterative reconstruction. Contrast material: ISOVUE; Contrast volume: 100 ml; Contrast route: INTRAVENOUS (IV); COMPARISON: CT HEAD/BRAIN WO/W CON 09/24/2022 2:54 PM FINDINGS: ANTERIOR CIRCULATION: Right internal carotid artery: Intracranial segment is patent with no significant stenosis. No aneurysm. Right middle cerebral artery: No significant stenosis or occlusion. No aneurysm Right anterior cerebral artery: No occlusion or significant stenosis. No aneurysm. Left internal carotid artery: Intracranial segment is patent with no significant stenosis. No aneurysm. Left middle cerebral artery: No occlusion or significant stenosis. No aneurysm. Left anterior cerebral artery: No occlusion or significant stenosis. No aneurysm. POSTERIOR CIRCULATION: Right vertebral artery: No occlusion or significant stenosis. No aneurysm. Left vertebral artery: No occlusion or significant stenosis. No aneurysm. Basilar artery: No occlusion or significant stenosis. No aneurysm. Right posterior cerebral artery: No occlusion or significant stenosis. No aneurysm. Left posterior cerebral artery: No occlusion or significant stenosis. No aneurysm. Brain: No definite mass, mass effect, or midline shift. Evidence of old right frontal lobe infarct. 3 cm midline posterior fossa arachnoid cyst unchanged likely developmental in nature. Cerebral ventricles: Mild ipsilateral dilatation right lateral ventricles, stable secondary to old infarct. Bones/joints: Unremarkable Soft tissues: Unremarkable. IMPRESSION: 1. No hemodynamic significant stenosis or major branch occlusion. 2. Large old right frontal lobe infarct
--- NOTE | 2022-09-27 05:23 | PC.NURSE ---
pt slept some through the night, no acute distress, no changes from previous assessment, vss, no issues or concerns at this time.
[2022-09-27 06:50] LABS: Basophils # 0.1 K/mm3 (0-0.2); Basophils % 0.6 % (0.1-2.0); Eosinophils # 0.5 K/mm3 (0.0-0.4); Eosinophils % 3.7 % (0.1-12.0); Hemoglobin 10.4 g/dL (14.1-18.0); Lymphocytes # 2.1 K/mm3 (0.7-4.5); Lymphocytes % 16.1 % (10-50); Mean Corpuscular HGB Conc 33.7 g/dL (31.8-35.4); Mean Corpuscular Hemoglobin 31.2 pg (27.0-31.2); Mean Corpuscular Volume 92.5 fl (80-94); Mean Platelet Volume 7.6 fl (7.4-10.4); Monocytes # 0.5 K/mm3 (0.1-1.0); Monocytes % 4.2 % (1.7-9.3); Neutrophils # 9.7 K/mm3 (1.8-7.8); Neutrophils % 75.4 % (37.0-80.0); Platelet Count 470 K/mm3 (142-424); Red Blood Count 3.35 M/mm3 (4.60-6.20); White Blood Count 12.8 K/mm3 (4.8-10.8)
--- NOTE | 2022-09-27 13:50 | EXP.ACUTE.PN ---
Subjective *Date: 09/27/22 *Time: 13:56 Interval history: No events overnight. Stable on room air. Tolerating good p.o. intake. Repeat orthostatics today with systolics of 190 with standing and sitting. Previous blood pressures have all been well controlled. Denies chest pain, headache, confusion. Is noted to be anxious when asked to exert himself. Expresses concern about falling Medical Exam Vital signs and Labs for Last 24 Hours: Vital Signs Temp Pulse Pulse Resp BP Pulse Ox 09/27/22 08:00 66 09/27/22 12:02 192/109 H 09/27/22 12:01 170/95 H 09/27/22 12:00 98.5 F 80 18 105/45 L 95 09/27/22 08:00 98.3 F 70 20 105/74 L 99 09/27/22 04:00 60 09/27/22 04:00 98 F 63 18 102/66 L 93 L 09/26/22 20:00 60 09/27/22 00:00 60 09/27/22 00:00 98.8 F 78 18 115/70 96 09/26/22 20:00 99 09/26/22 20:00 98.6 F 66 18 106/63 L 99 09/26/22 16:00 60 09/26/22 16:00 97.6 F 82 18 92/62 L 100 Intake and Output 09/26/22 09/27/22 09/27/22 23:59 07:59 15:59 Intake Total 120 / 620 20 / 380 360 / 380 Output Total 250 / 550 375 / 375 Balance -130 / 70 -355 / 5 360 / 5 Intake: Intake, Oral Amount 120 / 600 360 / 360 Intake, Other Amount 20 / 20 Output: Output, Urine Amount 250 / 550 375 / 375 Other: Number of Unmeasured Voids 0 1 Weight 97.456 kg Patient Weight 09/27/22 23:59 Weight 97.456 kg Laboratory Results - last 24 hr 09/27/22 06:30: WBC 12.8 H, RBC 3.35 L, Hgb 10.4 L, Hct 31.0 L, MCV 92.5, MCH 31.2, MCHC 33.7, RDW 16.0, Plt Count 470 H, MPV 7.6, Neut % (Auto) 75.4, Lymph % (Auto) 16.1, [place] % (Auto) 4.2, Eos % (Auto) 3.7, Baso % (Auto) 0.6, Neut # (Auto) 9.7 H, Lymph # (Auto) 2.1, [place] # (Auto) 0.5, Eos # (Auto) 0.5 H, Baso # (Auto) 0.1 I & O for Labs for Last 24 Hours: Intake & Output 09/24/22 09/25/22 09/26/22 09/27/22 23:59 23:59 23:59 23:59 Intake Total 1080 / 1080 238 / 238 600 / 620 380 / 380 Output Total 2201 / 3151 1974 550 / 550 375 / 375 Balance -1121 / -2071 -1737 / -1737 50 / 70 5 / 5 Weight 102.7 kg 99.382 kg 97.5 kg 97.456 kg Microbiology Reports for the Last 24 Hours: Microbiology 09/21/22 17:02 Urine,Clean Catch Urine Culture - Final NO GROWTH AFTER 48 HOURS 09/21/22 11:20 Blood Blood Culture - Final NO GROWTH AFTER 5 DAYS 09/21/22 11:15 Blood Blood Culture - Final NO GROWTH AFTER 5 DAYS Constitutional: Present no acute distress, obese, chronically ill appearing and disheveled Head: Present atraumatic and normocephalic ENT: Present normal exam Neck: Present normal inspection Respiratory: Present normal respiratory effort; Absent accessory muscle use, rhonchi, wheezes or crackles Cardiac: Present Reg Rate and Rhythm GI: Present soft and normal bowel sounds; Absent distention or tenderness Extremities: Present normal inspection and full ROM Skin: Present intact; Absent erythema Comment:: Long overgrown toenails, seborrhea diffusely on chest and scalp Neuro: Present Grossly Intact, alert, awake, oriented x 3 and moves all extremities ([place]ree strength in left upper extremity.) Assessment and Plan *Assessment and plan (1) Syncope: Status: Acute Category: Medical Code(s): R55 - Syncope and collapse (2) Acute blood loss anemia: Status: Acute Category: Medical Code(s): D62 - Acute posthemorrhagic anemia (3) Coronary artery disease: Status: Acute Category: Medical Code(s): I25.10 - Atherosclerotic heart disease of [place] coronary artery without angina pectoris (4) Obesity (BMI 30-39.9): Status: Acute Category: Medical Code(s): E66.9 - Obesity, unspecified (5) Housing situation unstable: Status: Acute Category: Social Hx Code(s): Z59.819 - Housing instability, housed unspecified
--- NOTE | 2022-09-27 13:51 | CT_ITS ---
PROCEDURE INFORMATION: Exam: CTA Neck With Contrast Exam date and time: 09/27/2022 3:11 PM Age: 56 years old Clinical indication: Syncope and collapse; Additional info: Evaluate cerebral vasculature, having syncope TECHNIQUE: Imaging protocol: Computed tomographic angiography of the neck with contrast. 3D rendering (Not supervised by radiologist): MIP and/or 3D reconstructed images were created by the technologist. Radiation optimization: All CT scans at this facility use at least one of these dose optimization techniques: automated exposure control; mA and/or kV adjustment per patient size (includes targeted exams where dose is matched to clinical indication); or iterative reconstruction. Contrast material: ISOVUE; Contrast volume: 100 ml; Contrast route: INTRAVENOUS (IV); COMPARISON: CT HEAD/BRAIN WO/W CON 09/24/2022 2:54 PM FINDINGS: Right common carotid artery: No stenosis. No dissection or occlusion. Right internal carotid artery: No stenosis of the extracranial segment. No dissection or occlusion. Right external carotid artery: No occlusion or stenosis of the origin. Left common carotid artery: No stenosis. No dissection or occlusion. Left internal carotid artery: No stenosis of the extracranial segment. No dissection or occlusion. Left external carotid artery: No occlusion or stenosis of the origin. Right vertebral artery: No stenosis. No dissection or occlusion. Left vertebral artery: No stenosis. No dissection or occlusion. Soft tissues: Normal. No significant soft tissue swelling. Bones/joints: No acute fracture. IMPRESSION: No stenosis or occlusion. REFERENCES: NASCET CRITERIA. The degree of stenosis in the cervical segment of the internal carotid artery is based on NASCET criteria. Normal is no stenosis. Mild is less than 50% stenosis. Moderate is 50-69% stenosis. Severe is 70% to 99% stenosis. Total occlusion is no detectable patent lumen.
--- NOTE | 2022-09-27 14:32 | HMH.ITSTN ---
patient brought down for CTA-- new IV obtained on the floor in the right AC-- tried to flush will not flush and had a swollen patch above IV, co-worker [employer] Josh took patient back to the floor for a good IV placement. Unable to scan until IV in AC or higher is obtained
[2022-09-28] VITALS (8 sets, daily range): BP systolic 103–137; BP diastolic 64–95; PULSE 59–85; RESP 16–18; TEMP 36.7–37.1; O2SAT 98–100; BMI 28.9
--- NOTE | 2022-09-28 05:55 | PC.NURSE ---
no changes from previous assessment, vss, no acute distress, pt restless most of night with worry of discharge today.
--- NOTE | 2022-09-28 10:17 | CT_ITS ---
FINAL REPORT TECHNIQUE: Pre-and postcontrast images of the abdomen were performed by computed tomography. Extensive 3-D reconstruction images were performed. A CTA was performed. This study was performed with techniques to keep radiation doses as low as reasonably achievable (ALARA). Individualized dose reduction techniques using automated exposure control or adjustment of mA and/or kV according to the patient's size were employed. CLINICAL HISTORY: Labile HTN, evaluate renal arteries for SHERRI FINDINGS: CTA ABDOMEN ABDOMEN: The lung bases are clear. Precontrast images demonstrate no evidence of nephrolithiasis. No adrenal masses are identified. The liver, spleen and pancreas are unremarkable. The GI tract is without acute abnormality. There is a large amount of retained stool. No lymphadenopathy or ascites. On the bone window images are no acute abnormalities. CTA: The abdominal aorta is proper caliber. There is no dissection. The SMA, celiac axis, and WARD are patent. The renal arteries are patent bilaterally. The common iliac arteries are patent. The left external iliac artery is occluded at its origin. The right internal iliac artery is occluded. IMPRESSION: 1. No evidence of aortic aneurysm or dissection. Renal arteries are patent without stenosis. 2. 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 Reviewed, Interpreted and Dictated by Audra Myrick MD Transcribed by Zenaida Pastor Authenticated and [facility]
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
--- NOTE | 2022-09-28 11:36 | CARE MANAGER ---
Addendum entered by Samantha Bourne RN 09/29/22 14:41: Patient has now been declined by [facility] and [facility]. Patient notified today that he may need to consider senior care in order to get a bed, due to him stating that he will lose his apartment while at rehab. 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 Patient requested a BSC from [facility] and stated that he already has a walker and a cane. Addendum entered by Samantha Bourne RN 09/28/22 12:56: [facility] has declined, [facility] has no male beds available. [facility] and [facility] continue to review. Updates faxed to both facilities. Original Note: We are currently waiting for response from [facility], [facility], [facility] and [facility] for ICF care.
--- NOTE | 2022-09-28 18:37 | PC.NURSE ---
PT IS RESTING IN BED. ALERT AND ORIENTED X4. PT STATES HE IS FEELING BETTER HOWEVER IS VERY WEAK AND DOES NOT WANT TO RETURN TO HIS CURRENT HOME SITUATION. NO COMPLAINTS OF CHEST PAIN OR SOA. PT IS A 1 ASSIST TO GET OOB AND VERY UNSTEADY WHILE ATTEMPTING TO AMBULATE. LUNG SOUNDS CLEAR. ABDOMEN SOFT/NON TENDER WITH ACTIVE BOWEL SOUNDS. PT HAS BEEN USING A URINAL TO VOID. WILL CONTINUE TO MONITOR.
--- NOTE | 2022-09-28 23:45 | EXP.ACUTE.PN ---
Subjective *Date: 09/28/22 *Time: 12:00 Interval history: Overall of night. Remained stable on room air. No further episodes of dizziness. Psychiatry consulted to evaluate today out of concern for anxiety. Tolerating p.o. intake. Requiring minimal assistance to ambulate. No chest pain, nausea, vomiting, diarrhea. Blood pressure better controlled after starting metoprolol. Medical Exam Vital signs and Labs for Last 24 Hours: Vital Signs Temp Pulse Pulse Resp BP Pulse Ox 09/28/22 20:00 60 09/28/22 19:56 98.5 F 75 16 121/64 100 09/28/22 16:00 98.0 F 68 18 103/65 L 100 09/28/22 11:40 98.1 F 85 18 133/86 100 09/28/22 08:00 69 09/28/22 08:00 98.4 F 70 18 124/78 100 09/28/22 04:00 98.6 F 64 16 115/69 98 09/28/22 00:00 65 09/28/22 04:00 60 09/28/22 00:00 98.7 F 66 16 137/95 H 98 Intake and Output 09/28/22 09/28/22 09/28/22 07:59 15:59 23:59 Intake Total 600 / 1080 480 / 1080 Output Total 875 / 975 0 / 975 100 / 975 Balance -875 / 105 600 / 105 380 / 105 Intake: Intake, Oral Amount 600 / 1080 480 / 1080 Output: Output, Urine Amount 875 / 975 0 / 975 100 / 975 Other: Number of Voids 0 Number of Unmeasured Voids 1 1 Weight 96.9 kg Patient Weight 09/28/22 23:59 Weight 96.9 kg I & O for Labs for Last 24 Hours: Intake & Output 09/25/22 09/26/22 09/27/22 09/28/22 23:59 23:59 23:59 23:59 Intake Total 238 / 238 600 / 620 860 / 860 1080 / 1080 Output Total 1974 / 1974 550 / 550 750 / 1450 975 / 975 Balance -1737 / -1737 50 / 70 110 / -590 105 / 105 Weight 99.382 kg 97.5 kg 97.456 kg 96.9 kg Assessment and Plan *Assessment and plan (1) Syncope: Status: Acute Category: Medical Code(s): R55 - Syncope and collapse (2) Acute blood loss anemia: Status: Acute Category: Medical Code(s): D62 - Acute posthemorrhagic anemia (3) Coronary artery disease: Status: Acute Category: Medical Code(s): I25.10 - Atherosclerotic heart disease of [place] coronary artery without angina pectoris (4) Obesity (BMI 30-39.9): Status: Acute Category: Medical Code(s): E66.9 - Obesity, unspecified (5) Housing situation unstable: Status: Acute Category: Social Hx Code(s): Z59.819 - Housing instability, housed unspecified (6) Depression: Status: Acute Category: Medical Code(s): F32.A - Depression, unspecified Plan 56-year-old man recent STEMI requiring 2 stents on [place] in [place] presenting with acute thrombosis and STEMI of ramus after not taking anticoagulation.? Hemoglobin has finally stabilized. Status post 6 units transfused during hospitalization. Patient hemodynamically stable. Had a syncopal event today prior to attempted discharge. Family states they are unable to take patient home and handle him. Case management consulted to assist with placement. Continues to require inpatient management at this time pending placement. PT/OT continue to work with patient. Problems addressed as follows: Syncope -Repeat orthostatics today with elevated blood pressures. Stable BP off BP meds - Given stability of hemoglobin, lab holiday today. No further signs of bleeding. -Given general weakness, syncopal event, patient would benefit from skilled therapy. Case management assisting in placement options. - STEMI Cardiology consulted, appreciate their recommendations. Discussed case with cardiology today, recommend CTA of abdomen to evaluate for renal artery stenosis. Blood pressure better controlled, continue metoprolol 12.5 mg twice daily Continue to hold ARB Ejection fraction 55% on echo, however in light of his dizziness, will hold progress cautiously with medications at this time. Continue Brilinta twice daily and aspirin daily. Needs follow-up with cardiology in 2 weeks Acute anemia -Secondary to blood loss. -
[2022-09-29] VITALS: PULSE 60
--- NOTE | 2022-09-29 02:16 | PC.NURSE ---
Pt laying in bed resting at this time, pt has been a/o x 4, resp even and non labored, lungs clear. Pt have denied any pain or shortness of air. Has used a urinal. Reports he is going to a retirement tomorrow for rehabilitation. States since he had a heart attack he has not felt right, could not elaborate. Pt encouraged to report any needs to staff, IV is patent, bed locked in low position, side rails up x 2, call light in reach.
[2022-09-29 03:54] VITALS: BP 100/60; PULSE 60; RESP 16; TEMP 36.7; O2SAT 98; BMI 29.9
[2022-09-29 04:00] VITALS: PULSE 60
[2022-09-29 06:45] LABS: Anion Gap 8.7 mEq/L (5-15); Blood Urea Nitrogen 10 mg/dl (9-20); Calcium 8.1 mg/dl (8.4-10.2); Carbon Dioxide 28 mmol/L (22.0-30.0); Chloride 105 mmol/L (98-107); Creatinine Clearance Estimated 120 mL/min (50-200); Estimated Glomerular Filt Rate 78 ml/min (>60); GFR (African American) 94 ML/MIN (>60); Glucose 91 mg/dl (74-100); Potassium 3.7 mmoL/L (3.5-5.1); Sodium 138 mmol/L (136-145)
[2022-09-29 06:54] LABS: Basophils # 0.1 K/mm3 (0-0.2); Basophils % 0.7 % (0.1-2.0); Eosinophils # 0.4 K/mm3 (0.0-0.4); Eosinophils % 3.8 % (0.1-12.0); Hematocrit 31.9 % (42.0-52.0); Hemoglobin 10.3 g/dL (14.1-18.0); Lymphocytes # 1.9 K/mm3 (0.7-4.5); Lymphocytes % 17.8 % (10-50); Mean Corpuscular HGB Conc 32.3 g/dL (31.8-35.4); Mean Corpuscular Hemoglobin 29.7 pg (27.0-31.2); Mean Corpuscular Volume 91.9 fl (80-94); Mean Platelet Volume 7.4 fl (7.4-10.4); Monocytes # 0.7 K/mm3 (0.1-1.0); Monocytes % 6.4 % (1.7-9.3); Neutrophils # 7.6 K/mm3 (1.8-7.8); Neutrophils % 71.2 % (37.0-80.0); Platelet Count 567 K/mm3 (142-424); Red Blood Count 3.47 M/mm3 (4.60-6.20); Red Cell Distribution Width 15.8 % (11.5-17.5); White Blood Count 10.6 K/mm3 (4.8-10.8)
[2022-09-29 07:51] VITALS: BP 92/53; PULSE 66; RESP 18; TEMP 36.6; O2SAT 96
[2022-09-29 08:00] VITALS: PULSE 57
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
--- NOTE | 2022-09-29 10:58 | EXP.CARD.PN ---
Subjective Subjective Date: 09/29/22 Time: 10:30 Principal diagnosis: STEMI, anemia Interval history: This is a 56-year-old white gentleman who presented to the emergency department and was found to have a STEMI. The patient underwent thrombectomy and angioplasty to the ramus artery. This morning he denies any chest pain, pressure, shortness of breath or edema. He denies any fever, chills, nausea, vomiting, diarrhea, PND orthopnea. The patient is still hospitalized because he is having anxiety attacks where his blood pressure drops and he is having difficulty with ambulating. From a cardiac standpoint the patient is stable. There are some concerns with his home situation. He lives with his daughters who are 16 and 17 years old and unable to provide care for him. They are currently trying to get him into a rehab facility at discharge. Exam Data for Last 24 hours Vital signs and Labs for Last 24 Hours: Temp Pulse Resp BP Pulse Ox 97.8 F 57 L 18 92/53 L 96 09/29/22 07:51 09/29/22 08:00 09/29/22 07:51 09/29/22 07:51 09/29/22 07:51 Laboratory Results - last 24 hr 09/29/22 05:51: WBC 10.6, RBC 3.47 L, Hgb 10.3 L, Hct 31.9 L, MCV 91.9, MCH 29.7, MCHC 32.3, RDW 15.8, Plt Count 567 H, MPV 7.4, Neut % (Auto) 71.2, Lymph % (Auto) 17.8, [place] % (Auto) 6.4, Eos % (Auto) 3.8, Baso % (Auto) 0.7, Neut # (Auto) 7.6, Lymph # (Auto) 1.9, [place] # (Auto) 0.7, Eos # (Auto) 0.4, Baso # (Auto) 0.1 09/29/22 05:51: Sodium 138, Potassium 3.7, Chloride 105, Carbon Dioxide 28, Anion Gap 8.7, BUN 10, Creatinine 1.00, Estimated Creat Clear 120, Estimated GFR 78, Est GFR ( Amer) 94, Glucose 91, Calcium 8.1 L I & O for Last 24 hours: Intake & Output 09/26/22 09/27/22 09/28/2209/29/23 23:59 23:59 23:59 23:59 Intake Total 600 / 620 860 / 860 1080 / 1080 480 / 480 Output Total 550 / 550 750 / 1450 1275 / 1275 0 / 0 Balance 50 / 70 110 / -590 -195 / -195 480 / 480 Weight 214 lb 15.211 oz 214 lb 13.659 oz 213 lb 10.047 oz 220 lb 10.923 oz Constitutional Constitutional: no acute distress and average body habitus *Routine HEENT Exam Head: Present normocephalic and atraumatic ENT: Present mucous membranes moist *Routine Neck Exam Neck: Present supple, full ROM and normal carotid upstroke; Absent JVD, carotid bruit or lymphadenopathy *Routine Respiratory Exam Respiratory: Present CTA bilaterally, normal respiratory effort, able to speak in complete sentences and symmetric chest movement *Routine Cardiovascular Exam Cardiovascular: Present RRR, Normal S1 and Normal S2; Absent murmur or gallop *Routine Abdominal Exam Abdominal: Present soft and normoactive bowel sounds; Absent tenderness, distended or organomegaly *Routine Extremities Exam Extremities: Present full ROM, pulses intact and normal capillary refill; Absent cyanosis, clubbing or edema *Routine Skin Exam Skin: Present intact and warm; Absent erythema *Routine Neurological Exam Neurological: Present alert, oriented X3 and CN II-XII intact; Absent sensory deficit or motor deficit Routine Psychiatric Exam Psychiatric: Present normal affect Progress Note: A&P Assessment and plan (1) Coronary artery disease: Status: Acute (2) PTSD (post-traumatic stress disorder): Status: Acute (3) CVA (cerebral vascular accident): Status: Acute (4) Hypertension: Status: Acute (5) Tobacco use: Status: Acute (6) Elevated troponin: Status: Acute (7) Hyperlipidemia: Status: Acute (8) Obesity (BMI 30-39.9): Status: Acute (9) STEMI (ST elevation myocardial infarction): Status: Acute (10) Syncope: Status: Acute Assessment and Plan Assessment and Plan for All Diagnoses:: Plan: 1. This is a 56-year-old gentleman who presented to the hospital with a STEMI. The patient had mechanical thrombectomy with balloon angioplasty to the ramus off of the circumflex artery. He tolerated this procedure well and will be on Brilinta and aspirin for
--- NOTE | 2022-09-29 11:30 | EXP.DC.SUM ---
General Admission date:: 09/20/22 Discharge date: 09/29/22 HPI HPI HPI: 56-year-old man with recent PCI presents to the emergency department due to anxiety attacks.? He was found to have a STEMI and was taken to the [facility] And received mechanical thrombectomy followed by balloon angioplasty.? Patient was discharged from the [facility] to stepdown unit.?? Hospital Course Hospital Course Hospital Course: 56-year-old man recent STEMI requiring 2 stents on [facility] in [place] presenting with acute thrombosis and STEMI of ramus after not taking anticoagulation.? Patient is severely anemic with a hemoglobin of 4 and reportedly covered in bedbugs on arrival.? Received mass transfusion on arrival.? Patient has unstable housing circumstances with severe and significant concerns regarding his social aspects of life, having passive suicidality without active plan or desire to harm himself.? PT/OT to evaluate for placement recommendations today.? Problems addressed as follows. - STEMI Acute thrombosis status post mechanical thrombectomy and angioplasty of ramus Cardiology consulted, appreciate their recommendations Continue Brilinta 90 mg twice daily and aspirin 81 mg daily Low-dose bisoprolol daily Echo obtained with normal EF, grade 1 diastolic dysfunction.? Acute anemia -Uncertain etiology however suspect GI loss. - Surgery consulted, - EGD this morning -Hemoglobin up to 8.9 after transfusion.? Transfusion threshold less than 7 - PPI therapy - Initiate sucralfate after EGD Depression / anxiety / PTSD - refractory to SSRI - effexor as ordered -BuSpar therapy -Psychiatry consult noted Chronic pain - continue home opiate regimen Constipation -Bowel regimen while on chronic opioids Clinically stable from a cardiac standpoint.? Okay for discharge home from cardiology standpoint. Follow-up in our office in 1 week. Home medication recommendations Aspirin 81 mg daily Brilinta 90 mg twice daily Atorvastatin 80 mg daily Bisoprolol 2.5 mg daily Avapro 75 mg daily Continue PPI Continue management as per primary service UGI/SBFT followed by capsule endoscopy (in the outpatient setting in the near future) warranted Colonoscopy in the relatively near future (when deemed appropriate from an overall medical/cardiac standpoint) in the outpatient setting also warranted Exam Data for Last 24 hours Vital signs and Labs for Last 24 Hours: Temp Pulse Resp BP Pulse Ox 97.8 F 57 L 18 92/53 L 96 09/29/22 07:51 09/29/22 08:00 09/29/22 07:51 09/29/22 07:51 09/29/22 07:51 Laboratory Results - last 24 hr 09/29/22 05:51: WBC 10.6, RBC 3.47 L, Hgb 10.3 L, Hct 31.9 L, MCV 91.9, MCH 29.7, MCHC 32.3, RDW 15.8, Plt Count 567 H, MPV 7.4, Neut % (Auto) 71.2, Lymph % (Auto) 17.8, [place] % (Auto) 6.4, Eos % (Auto) 3.8, Baso % (Auto) 0.7, Neut # (Auto) 7.6, Lymph # (Auto) 1.9, [place] # (Auto) 0.7, Eos # (Auto) 0.4, Baso # (Auto) 0.1 09/29/22 05:51: Sodium 138, Potassium 3.7, Chloride 105, Carbon Dioxide 28, Anion Gap 8.7, BUN 10, Creatinine 1.00, Estimated Creat Clear 120, Estimated GFR 78, Est GFR ( Amer) 94, Glucose 91, Calcium 8.1 L I & O for Last 24 hours: Intake & Output 09/26/22 09/27/22 09/28/22 09/29/22 23:59 23:59 23:59 23:59 Intake Total 600 / 620 860 / 860 1080 / 1080 480 / 480 Output Total 550 / 550 750 / 1450 1275 / 1275 0 / 0 Balance 50 / 70 110 / -590 -195 / -195 480 / 480 Weight 97.5 kg 97.456 kg 96.9 kg 100.1 kg Constitutional Constitutional: no acute distress *Routine HEENT Exam Head: Present normocephalic Eye: Present EOMI and PERRL ENT: Present mucous membranes moist *Routine Neck Exam Neck: Present supple; Absent lymphadenopathy *Routine Respiratory Exam Respiratory: Present CTA bilaterally *Routine Cardiovascular Exam Cardiovascular: Present RRR *Routine Abdominal Exam Abdominal: Present soft and normoactive bowel sounds; Absent tenderness *Routine Extremities Exam Extremities: Absent cyanosis, clu
[2022-09-29 11:47] VITALS: BP 120/80; PULSE 91; RESP 18; TEMP 36.8; O2SAT 99
--- NOTE | 2022-09-29 12:32 | HMH.PHAINT1 ---
Pharmacy Intervention Comments: Discharge medication counseling completed with patient. Overviewed new and continued medications, including indications, possible adverse effects, and mitigation strategies for each. Instructed patient to stop discontinued medications. Patient requested that medications be delivered to his bedside prior to discharge; this student informed his nurse of his request. Patient verbalized understanding of information provided and had no further questions or concerns at this time. -Krystal Pino, PharmD Candidate 2022
--- NOTE | 2022-09-29 14:38 | CARE MANAGER ---
Patient discharged home today with outpatient orders for PT/OT. Patient notified of appt on Thursday 10/05 @ 1300. He also had a BSC ordered through [facility] and that will be delivered to his home.
--- NOTE | 2022-10-01 14:03 | CARE MANAGER ---
Attempted to contact patient x2 related to hospital discharge and was unable to leave . CHRISTOPHER Silverman
== END 2022-09-29 13:29 | disposition home or self-care (01) | DRG 250 ==
LOC: ER 15:06 → 2ND 15:09
PROVIDERS: Internal Medicine; Nurse Practitioner Acute Care; Nurse Practitioner Family; Physician Assistant; Student in an Organized Health Care Education/Training Program; Surgery; Admitting Provider Internal Medicine Adolescent Medicine; Emergency Provider Emergency Medicine; PCP Emergency Medicine; Visit Provider Family Medicine
PROC: 02C03ZZ Extirpation of Matter from Coronary Artery, One Artery, Percutaneous Approach (ICD-10-PCS; principal; 2022-09-20 14:05)
PROC: 0DJ08ZZ Inspection of Upper Intestinal Tract, Via Natural or Artificial Opening Endoscopic (ICD-10-PCS; CPT 43235; principal; 2022-09-23 07:30)
DX: I21.3 ST elevation (STEMI) myocardial infarction of unspecified site (principal); K26.4 Chronic or unspecified duodenal ulcer with hemorrhage; K29.81 Duodenitis with bleeding; D62 Acute posthemorrhagic anemia; E87.1 Hypo-osmolality and hyponatremia; E87.20 Acidosis, unspecified; R45.851 Suicidal ideations; I25.10 Atherosclerotic heart disease of native coronary artery without angina pectoris; E66.9 Obesity, unspecified; Z68.29 Body mass index [BMI] 29.0-29.9, adult; T14.8XXA Other injury of unspecified body region, initial encounter; W57.XXXA Bitten or stung by nonvenomous insect and other nonvenomous arthropods, initial encounter; E78.5 Hyperlipidemia, unspecified; F32.A Depression, unspecified; Z59.819 Housing instability, housed unspecified; F41.9 Anxiety disorder, unspecified; G89.29 Other chronic pain; I25.5 Ischemic cardiomyopathy; F43.11 Post-traumatic stress disorder, acute
CPT/HCPCS: 43239; 36415; 70470; 70496; 70498; 71045; 74175; 74176; 80048; 80053; 80061; 82607; 82728; 82803; 83010; 83540; 83550; 83605; 83615; 83735; 84100; 84484; 85007; 85014; 85018; 85025; 85044; 85347; 85384; 85610; 86850; 87040; 87086; 92973; 93005; 93306; 93308; 93458; 97116; 97163; 97165; 97530; 99152; 99153; 99291; C1725; C1769; C1894; C9803; J0456; J0696; J1644; J2405; P9016; Q9967; U0003; U0005

== ENCOUNTER → 2022-10-23 12:57 | Outpatient (CLI) | payer BC, SELFPAY ==
[2022-10-23 13:58] LABS: Basophils # 0.2 K/mm3 (0-0.2); Basophils % 1.9 % (0.1-2.0); Eosinophils # 0.9 K/mm3 (0.0-0.4); Hematocrit 40.8 % (42.0-52.0); Hemoglobin 12.8 g/dL (14.1-18.0); Lymphocytes % 23.1 % (10-50); Mean Corpuscular HGB Conc 31.5 g/dL (31.8-35.4); Mean Corpuscular Hemoglobin 28.6 pg (27.0-31.2); Mean Platelet Volume 7.9 fl (7.4-10.4); Monocytes # 0.5 K/mm3 (0.1-1.0); Monocytes % 6.2 % (1.7-9.3); Neutrophils % 58.9 % (37.0-80.0); Platelet Count 340 K/mm3 (142-424); Red Blood Count 4.49 M/mm3 (4.60-6.20); White Blood Count 8.6 K/mm3 (4.8-10.8)
[2022-10-23 14:57] LABS: Anion Gap 11.1 mEq/L (5-15); Blood Urea Nitrogen 10 mg/dl (9-20); Calcium 8.8 mg/dl (8.4-10.2); Carbon Dioxide 26 mmol/L (22.0-30.0); Chloride 108 mmol/L (98-107); Estimated Glomerular Filt Rate 78 ml/min (>60); GFR (African American) 94 ML/MIN (>60); Glucose 95 mg/dl (74-100); Potassium 4.1 mmoL/L (3.5-5.1); Sodium 141 mmol/L (136-145)
[2022-10-23 15:08] LABS: NT Pro Brain Natriuretic Pep. 1470 pg/mL (0-125)
== END ==
PROVIDERS: PCP Emergency Medicine; Visit Provider Internal Medicine Cardiovascular Disease
DX: R06.09 Other forms of dyspnea (principal); I25.10 Atherosclerotic heart disease of native coronary artery without angina pectoris; I10 Essential (primary) hypertension; E78.5 Hyperlipidemia, unspecified; Z72.0 Tobacco use; Z95.5 Presence of coronary angioplasty implant and graft
CPT/HCPCS: 36415; 80048; 83880; 85025

== ENCOUNTER → 2023-07-19 08:27 | Outpatient (CLI) | payer BC, SELFPAY ==
[2023-07-19 22:21] LABS: Amphetamine/Metha Screen,Urine Negative ng/ml (<1000)
[2023-07-19 22:22] LABS: Barbiturates Screen,Urine Negative ng/ml (<200)
[2023-07-19 22:24] LABS: Benzodiazepines Screen,Urine Negative ng/ml (<200); Cannabinoid Screen,Urine Negative ng/ml (<50)
[2023-07-19 22:26] LABS: Methadone Screen,Urine Negative ng/ml (<300); Opiate Screen,Urine Negative ng/ml (<300)
[2023-07-19 22:27] LABS: Phencyclidine Screen,Urine Negative ng/ml (<25)
[2023-07-19 22:33] LABS: Cocaine Screen,Urine Negative ng/ml (<300)
== END ==
PROVIDERS: PCP Emergency Medicine; Visit Provider Emergency Medicine
DX: M54.16 Radiculopathy, lumbar region (principal); Z79.899 Other long term (current) drug therapy
CPT/HCPCS: 80305

== ENCOUNTER 2023-07-20 10:43 | Day surgery (SDC) | payer BC, SELFPAY ==
[2023-07-16 16:29] VITALS: BMI 62.8
[2023-07-20] VITALS (7 sets, daily range): BP systolic 93–137; BP diastolic 50–83; PULSE 61–78; RESP 18; TEMP 36.5–36.6; O2SAT 94–98
--- NOTE | 2023-07-20 11:08 | P.PNANES_ITS ---
[facility] Disclaimer: The information contained in this section may have been updated after the patient was seen, as this information can be updated by other users. Medical History Anxiety Coronary artery disease CVA (cerebral vascular accident) Elevated troponin History of seizures Hyperlipidemia Hypertension Panic disorder STEMI (ST elevation myocardial infarction) Syncope Tobacco use Surgical History History of ankle surgery History of coronary artery stent placement Family History Other Colon cancer Diabetes Heart disease Social History Smoking Status: Current every day smoker tobacco type: cigarettes packs per day: 2 alcohol intake: never substance use type: denies use current occupational status: disabled Travel in the last 8 weeks: None [facility] Anesthesia Checklist Patient Identification Patient Identification: Arm Band and Verbal (Name & ) Structural Data Admitted From: Home Planned Operative Procedure/s: Colonoscopy Consent for Planned Operative Procedure(s) Verified: Yes Verified Documents: Surgical Consent and History and Physical NPO Status Verified Time NPO: 05:00 Chart Verification Results Verified: CBC, BMP, ECG and Chest Xray Additional verifications Patient : No Anesthesia Reactions: No Hx Blood Transfusions: No Blood Transfusion Reaction: No Cephalosporin Allergy: No Previous Colonoscopy: No Cardiovascular Assessment Heart Sounds: S1 & S2 Pulse Rhythm: Irregular Peripheral Edema: No Airway Assessment Mallampati Score:: Class II C-Spine Mobility Assessed: Yes TMJ Mobility Assessed: Yes Dentition: Poor Dentition (Nothing loose per pt.) Neurological Assessment Level of Consciousness: Awake, Alert, Appropriate and Follows Commands Hx Seizures: Yes Numbness or tingling in extremities: No Anesthesia Plan Anesthesia Risk discussed: Yes Anesthesia Plan: Verified ASA Class: III Anesthesia Type: MAC
--- NOTE | 2023-07-20 11:53 | HMH.SCOPE ---
Procedure: Date: 07/20/23 Patient Date of :: 1965 Procedure Performed:: Colonoscopy with polypectomy Indications:: Anemia Performing Provider:: Francisco Church MD Referring Provider:: Dr. Malone Sedation:: Monitored anesthesia care Procedure:: After informed consent was obtained the patient was taken to the endoscopy suite. Sedation ensued after the patient was transferred to the left lateral decubitus position. Pulse, blood pressure, and oxygen saturation were monitored throughout the procedure. Digital rectal exam revealed no significant abnormality. The colonoscope was placed in position. The entire colon was evaluated. The colonoscope was carefully removed and the patient was transferred to recovery in stable condition. Please see findings and specimens below for detail. Findings:: Bowel preparation moderate Fairly significant spasticity and tortuosity Hemorrhoidal cushions Complex polyps (see specimens) Specimens:: Sessile hepatic flexure polyp (cold biopsy forceps) Lobulated complex adjacent proximal transverse colon polyps (hot snare and cold biopsy forceps) Partially-pedunculated complex lobulated polyp at 20 cm (hot snare) Partially pedunculated complex lobulated polyp at 15 cm (hot snare) Recommendations:: Timing of repeat colonoscopy is pending pathology but will likely be around 6 months with extended bowel preparation secondary to moderate preparation, spasticity/tortuosity, and size/nature/number of polyps. Complications:: No immediate Estimated blood obtained (mL): 1 Colonoscopy Component Colonoscopy Component Was a colonoscopy performed during today's procedure?: Yes Recommended follow up colonoscopy of at least 10 years?: No If no, follow up colonoscopy recommended in ___ years?: (See above) Reason for not recommending >/= 10 yr follow-up interval?: (See above)
--- NOTE | 2023-07-20 12:12 | EXP.ANES.I ---
[facility] Anesthesia Record Part I Anesthesia Record I Intake, IV Amount: 450 Hydration: Adequate Estimated blood loss (mL): 1 Urine output (mL): 0 Blood Products used (#): none Blood Pressure: 93/68 SaO2: 94 Pulse Rate: 62 Airway Patency: Patent Respiratory Rate: 18 Temperature: 97.7 F Patient is:: Awake, Drowsy and Stable Stable to PACU at:: 12:03
== END 2023-07-20 12:29 | disposition home or self-care (01) ==
PROVIDERS: PCP Emergency Medicine; Visit Provider Surgery
PROC: 0DJD8ZZ Inspection of Lower Intestinal Tract, Via Natural or Artificial Opening Endoscopic (ICD-10-PCS; CPT 45380; principal; 2023-07-20 11:30)
DX: D64.9 Anemia, unspecified (principal); D12.3 Benign neoplasm of transverse colon; D12.5 Benign neoplasm of sigmoid colon; D12.7 Benign neoplasm of rectosigmoid junction
CPT/HCPCS: 45380; 45385

== ENCOUNTER 2023-10-14 10:17 | Outpatient (CLI) | payer BC, SELFPAY ==
[2023-10-14] MEDS: ALBUTEROL 0.083% 2.5 MG/3 ML NEB IH (10:53)
--- NOTE | 2023-10-14 14:51 | PC.NURSE ---
WALK TEST NOT PERFORMED DUE TO BLOOD PRESSURE BEING HIGH. NOTIFIED
== END 2023-10-14 23:59 ==
LOC: RT 10:17
PROVIDERS: PCP Nurse Practitioner Family; Visit Provider Nurse Practitioner Family
DX: R06.02 Shortness of breath (principal)
CPT/HCPCS: 94060

== ENCOUNTER 2024-01-18 14:31 | Outpatient (CLI) | payer BC, SELFPAY ==
--- NOTE | 2024-01-18 14:38 | CT_ITS ---
FINAL REPORT TECHNIQUE: Thin section axial images were obtained from the lung apices to the upper abdomen by computed tomography. Reformatted images were obtained and reviewed. This study was performed with techniques to keep radiation doses al low as reasonably achievable (ALARA). Individualized dose reduction techniques using automated exposure control or adjustment of mA and/or kV according to the patient's size were employed. CLINICAL HISTORY: lung cancer screening smoker, 1 ppd x 30 years FINDINGS: CHEST CT LOW DOSE CTDI vol (mGy): 2.90 DLP (mGy-cm): 113.33 There is no axillary adenopathy. There is no mediastinal or hilar mass or adenopathy. The heart is normal in size. There is no pericardial or pleural effusion. There is mild emphysema and mild pulmonary scarring. There is a 4.6 cm ascending aortic aneurysm. Calcified granuloma is seen in the left lower lobe. There is a 6 mm left lower lobe nodule well seen on image 53. There is a 3 mm left lower lobe nodule well seen on image 63. There is a 4 mm lateral right upper lobe nodule well seen on image 25. Limited images of the upper abdomen are unremarkable. IMPRESSION: Pulmonary nodules as detailed above. Modifier S: Ascending aortic aneurysm. Lung-RADS category 3 S. Recommend 6 month follow up low dose chest CT. Reviewed, Interpreted and Dictated by Stanislav Restrepo III, MD Transcribed by Elodia Bernard Authenticated and [facility]
[2024-01-18] MEDS: ALBUTEROL 0.083% 2.5 MG/3 ML NEB IH (15:55)
--- NOTE | 2024-01-18 16:00 | PC.NURSE ---
RESPIRATORY CARE NOTE: PT REFUSED 6MWT, DOES NOT WALK WELL POST STROKE AND HAVING LEG PAIN
== END 2024-01-18 23:59 | disposition home or self-care (01) ==
LOC: RAD 14:33
PROVIDERS: PCP Nurse Practitioner Family; Visit Provider Internal Medicine Pulmonary Disease
DX: Z12.2 Encounter for screening for malignant neoplasm of respiratory organs (principal); F17.210 Nicotine dependence, cigarettes, uncomplicated
CPT/HCPCS: 71271; 94060; 94618; 94726; 94729

== ENCOUNTER 2024-01-25 09:05 | Day surgery (SDC) | payer BC, SELFPAY ==
[2024-01-25 09:23] VITALS: BMI 29.1
[2024-01-25] MEDS: LACTATED RINGERS 1000ML 1,000 ML 100 ML IV (09:26)
[2024-01-25 09:27] VITALS: BP 162/105; PULSE 79; RESP 16; TEMP 36.7; O2SAT 99
--- NOTE | 2024-01-25 09:35 | HMH.SCOPE ---
Procedure: Date: 01/25/24 Patient Date of :: 1965 Procedure Performed:: Colonoscopy with polypectomy Indications:: History of colon polyps History of positive Cologuard Note: He has a fairly recent history of positive Cologuard. Colonoscopy in July 2023 was somewhat complicated by moderate bowel preparation and spasticity/tortuosity. Hemorrhoids noted. Multiple complex polyps (specifically adenomatous polyps of the hepatic flexure, transverse colon, and at 20 cm) were excised. Short-term repeat evaluation recommended Performing Provider:: Francisco Church MD Referring Provider:: . Sedation:: Monitored anesthesia care Procedure:: After informed consent was obtained the patient was taken to the endoscopy suite. Sedation ensued after the patient was transferred to the left lateral decubitus position. Pulse, blood pressure, and oxygen saturation were monitored throughout the procedure. Digital rectal exam revealed no significant abnormality. The colonoscope was placed in position. The entire colon was evaluated. The colonoscope was carefully removed and the patient was transferred to recovery in stable condition. Please see findings and specimens below for detail. Findings:: Bowel preparation fair to moderate Moderate spasticity/lack of relaxation Moderate tortuosity Hemorrhoidal tag/cushions Polyps (see specimens) Specimens:: Transverse colon polyp (cold snare) Lobulated partially-pedunculated complex polyp at 25 cm (hot snare) Recommendations:: Timing of repeat colonoscopy is pending pathology but likely be around 2 years secondary to complex polyps and short-term repeat evaluation, spasticity/lack of relaxation, tortuosity, and history of positive Cologuard. Complications:: No immediate Estimated blood obtained (mL): 1 Colonoscopy Component Colonoscopy Component Was a colonoscopy performed during today's procedure?: Yes Recommended follow up colonoscopy of at least 10 years?: No If no, follow up colonoscopy recommended in ___ years?: (See above) Reason for not recommending >/= 10 yr follow-up interval?: (See above)
--- NOTE | 2024-01-25 09:44 | EXP.ANES.CKL ---
[facility] Disclaimer: The information contained in this section may have been updated after the patient was seen, as this information can be updated by other users. Medical History Encounter for screening for malignant neoplasm of lung Smoking greater than 30 pack years Pulmonary emphysema Dyspnea on exertion History of seizures Anxiety Panic disorder Syncope Hyperlipidemia STEMI (ST elevation myocardial infarction) Coronary artery disease Elevated troponin Tobacco use Hypertension CVA (cerebral vascular accident) Surgical History History of ankle surgery right History of coronary artery stent placement Family History Other Colon cancer Diabetes Heart disease Social History Smoking Status: Current every day smoker tobacco type: cigarettes packs per day: 2 alcohol intake: never substance use type: denies use current occupational status: disabled Travel in the last 8 weeks: None [facility] Anesthesia Checklist Patient Identification Patient Identification: Arm Band Structural Data Admitted From: Home Planned Operative Procedure/s: Colonoscopy Consent for Planned Operative Procedure(s) Verified: Yes Verified Documents: Surgical Consent and History and Physical NPO Status Verified Time NPO: 00:00 Additional verifications Anesthesia Reactions: No Hx Blood Transfusions: No Blood Transfusion Reaction: No Airway Assessment Mallampati Score:: Class II C-Spine Mobility Assessed: Yes TMJ Mobility Assessed: Yes Dentition: Poor Dentition Neurological Assessment Level of Consciousness: Awake, Alert and Appropriate Anesthesia Plan Anesthesia Risk discussed: Yes Anesthesia Plan: Verified ASA Class: III Anesthesia Type: MAC
[2024-01-25 09:51] VITALS: O2SAT 99
[2024-01-25 10:40] VITALS: BP 139/82; PULSE 81; RESP 18; TEMP 36.9; O2SAT 97
[2024-01-25 10:50] VITALS: BP 131/87; PULSE 78; RESP 20; O2SAT 95
[2024-01-25 11:00] VITALS: BP 111/74; PULSE 73; O2SAT 95
[2024-01-25 11:16] VITALS: BP 135/86; PULSE 73; O2SAT 95
== END 2024-01-25 11:16 | disposition home or self-care (01) ==
PROVIDERS: PCP Nurse Practitioner Family; Visit Provider Surgery
PROC: 0DJD8ZZ Inspection of Lower Intestinal Tract, Via Natural or Artificial Opening Endoscopic (ICD-10-PCS; CPT 45385; principal; 2024-01-25 07:30)
DX: Z12.11 Encounter for screening for malignant neoplasm of colon (principal); Z86.010 Personal history of colon polyps; D12.3 Benign neoplasm of transverse colon; D12.5 Benign neoplasm of sigmoid colon
CPT/HCPCS: 45385; J2704

== ENCOUNTER 2024-05-01 12:36 | Outpatient (CLI) | payer BC, SELFPAY ==
--- NOTE | 2024-05-01 12:36 | CA_ITS ---
APPROVED REPORT EXAM: Comprehensive 2D, Doppler, and color-flow Echocardiogram [place] Room Operator: Hazel Leon CRT Ht: 6 ft 0 in Wt: 222lbs BSA: 2.23 BP: 120/82 mmHg Indications: Chest Pain, Congestive Heart Failure, Shortness of Breath, Fatigue, Hyperlipidemia, Hypertension/HDD, GA, CVA, EF 45% ON ECHO 09-20-22 2D Dimensions LA Volume 40.20 mL LA Volume Index 17.60 mL/m2 (M/F) 16 M-Mode Dimensions RVDd 2.17 cm (0.9-2.6) LA Diam 2.61 cm (1.9-4.0) LVDd 4.22 cm (3.5-5.7) LVDs 2.85 cm (3.5-5.7) IVSd 2.36 cm (0.6-1.1) PWd 1.44 cm (0.6-1.1) EF (Teich) 61.10% FS 32.50% EDV (Teich) 79.50 mL TAPSE 2.48 (<1.7) ESV (Teich) 30.90 mL LV Diastology E Decel Time 193 (160-240 msec) E/A Ratio 0.56 MED A' 9.30 cm/s LAT A' 10.50 cm/s Aortic Valve AI PHT 458.00 ms AO Peak GR. 4.60 mmHg Mitral Valve MV A Velocity 73.0 (40-130 cm/s) E/A Ratio 0.56 Pulmonary Valve PV Peak Velocity 111.0 (50-150 cm/s) Tricuspid Valve TR P. Velocity 265.00 cm/s RAP Estimate 10.00 mmHg RVSP 38.10 mmHg Left Ventricle The left ventricle is normal size. Left ventricular systolic function is mildly decreased. There is increased LV wall thickness. There is mild global hypokinesis present. There is mild to moderate hypokinesis of the distal and apical LV murphy. Grade 1 diastolic dysfunction. LVEF is 45%. Right Ventricle The right ventricle is mildly dilated. The right ventricular systolic function is normal. Atria The left atrium size is normal. The right atrium size is normal. There is no Doppler evidence of interatrial shunt. Aortic Valve The aortic valve is mildly thickened. There is no aortic valvular stenosis. Mild aortic regurgitation. Mitral Valve The mitral valve is normal in structure. No evidence of mitral valve stenosis. There is no mitral valve regurgitation noted. Tricuspid Valve The tricuspid valve leaflets are thin and pliable. Trace tricuspid regurgitation. There is insufficient TR jet to estimate RVSP. Pulmonic Valve The pulmonary valve is normal in structure. Trace pulmonic regurgitation. Great Vessels The aortic root and ascending aorta are mildly dilated, measuring 4.2 and 4.4 cm in diameter, respectively. IVC is normal in size and collapses >50% with inspiration. Pericardium There is no pericardial effusion. Other Information Study Quality: Fair Conclusion Mildly reduced LV systolic function (LVEF 45%). Mild to moderate hypokinesis of the distal and apical LV murphy. Mild RV dilation with normal RV function. Mild AI. The aortic root and ascending aorta are mildly dilated, measuring 4.2 and 4.4 cm in diameter, respectively. Electronically signed by : Gale Lugo MD 05/02/2024 10:24:17
== END 2024-05-01 23:59 | disposition home or self-care (01) ==
LOC: RT 12:36
PROVIDERS: PCP Nurse Practitioner Family; Visit Provider Physician Assistant
DX: I50.20 Unspecified systolic (congestive) heart failure (principal)
CPT/HCPCS: 93306

== ENCOUNTER 2024-09-07 09:50 | Outpatient (CLI) | payer BC, SELFPAY ==
--- NOTE | 2024-09-07 09:51 | CT_ITS ---
FINAL REPORT TECHNIQUE: The patient was injected with IV contrast. Axial images were obtained through the chest in a PE protocol. 3-D reconstruction images were also performed. Individualized dose reduction techniques using automated exposure control or adjustment of the MA and/or KV according to patient's size were employed. CLINICAL HISTORY: aneurysm prior hx of stroke COMPARISON: None FINDINGS: Mediastinal vasculature is adequately opacified. No pulmonary artery filling defects are identified to suggest PE. There is no aortic dissection. There is a 4.4 cm aneurysm of the ascending aorta. There is no axillary adenopathy. There is no hilar or mediastinal adenopathy. The heart size is normal. There is no pericardial or pleural effusion. Limited images of the upper abdomen are unremarkable. There are mild changes of centrilobular emphysema, particularly in the upper lobes. IMPRESSION: 4.4 cm ascending aortic aneurysm. Reviewed, Interpreted and Dictated by Meir Wong MD Transcribed by Venus Walker Authenticated and [facility]
[2024-09-07 10:18] LABS: Blood Urea Nitrogen 11 mg/dl (9-20); Estimated Glomerular Filt Rate 87 ml/min (>60); GFR (African American) 106 ML/MIN (>60)
[2024-09-07] MEDS: IOPAMIDOL-370 (76%);100ML BOTTLE 100 ML IV (11:17)
[2024-09-07] MEDS: 0.9 % SODIUM CHLORIDE 50 ML VIAL IV (11:17)
[2024-09-07] MEDS: SODIUM CHLORIDE 0.9% 10ML SYR (RAD ONLY) 10 ML IV (11:17)
== END 2024-09-07 23:59 | disposition home or self-care (01) ==
LOC: RAD 09:51
PROVIDERS: PCP Nurse Practitioner Family; Visit Provider Nurse Practitioner Family
DX: I50.20 Unspecified systolic (congestive) heart failure (principal); I25.10 Atherosclerotic heart disease of native coronary artery without angina pectoris; I71.20 Thoracic aortic aneurysm, without rupture, unspecified
CPT/HCPCS: 36415; 71275; 82565; 84520; Q9967

== ENCOUNTER 2025-05-15 10:50 | Outpatient (CLI) | payer OTHER, SELFPAY ==
[2025-05-15 19:20] LABS: Hematocrit 47.5 % (42.0-52.0); Hemoglobin 16.3 g/dL (14.1-18.0); Immature Granulocytes % 0.3 %; Mean Corpuscular HGB Conc 34.3 g/dL (31.8-35.4); Mean Corpuscular Hemoglobin 32.0 pg (27.0-31.2); Mean Corpuscular Volume 93.3 fl (80-94); Nucleated Red Blood Cells % 0 %; Platelet Count 275 K/mm3 (142-424); Red Blood Count 5.09 M/mm3 (4.60-6.20); Red Cell Distribution Width-SD 46.5 fL; White Blood Count 9.5 K/mm3 (4.8-10.8)
[2025-05-15 19:56] LABS: Alanine Aminotransferase 34 U/L (12-78); Albumin Level 4.5 g/dl (3.5-5.0); Albumin/Globulin Ratio 1.5 (1.1-1.8); Alkaline Phosphatase 80 U/L (38-126); Anion Gap 13.4 mEq/L (5-15); Aspartate Amino Transferase 29 U/L (17-59); Bilirubin,Total 1.0 mg/dl (0.2-1.3); Blood Urea Nitrogen 14 mg/dl (9-20); Calcium 9.5 mg/dl (8.4-10.2); Carbon Dioxide 27 mmol/L (22.0-30.0); Chloride 101 mmol/L (98-107); Cholesterol 112 mg/dl (140-200); Creatinine,Serum 0.90 mg/dl (0.66-1.25); Estimated Glomerular Filt Rate 87 ml/min (>60); GFR (African American) 105 ML/MIN (>60); Globulin 3.0 g/dL (1.3-3.2); Glucose 94 mg/dl (74-100); HDL Cholesterol 28 mg/dl (40-60); Potassium 4.4 mmoL/L (3.5-5.1); Sodium 137 mmol/L (136-145); Total Protein,Serum 7.5 g/dl (6.3-8.2); Triglycerides 144 mg/dl (30-150)
[2025-05-15 20:27] LABS: Thyroid Stimulating Hormone 2.02 uIU/mL (0.465-4.68)
--- OUTSIDE RECORDS SUMMARY | 2025-05-17 10:37 | XMS_ITS | Clinical Summary ---
Author Organization Healthcare Address [address] [place] [address] Care Team Providers Care Production Service Manager Name Role Phone Unavailable Primary Care Provider Unavailabl e Immunizations Immunization Administration Dates Next Due Influenza, injectable, quadrivalent, preservativ e free 07/03/2015 Pneumococcal Polysaccharide PPV23 07/03/2015 Tdap 01/15/2014 Family History Medical History Relation Name Comments Hypertension Brother Hypertension Father Relation Name Status Comments Brother Father Social History Tobacco Use Types Packs/Day Years Used Date Smoking Tobacco: Every Day Alcohol Use Standard Drinks/Week Comments No 0 (1 standard drink = 0.6 oz pur e alcohol) Sex and Gender Information Value Date Recorded Sex Assigned at Not on file Legal Sex Male 8:20 AM EDT Gender Identity Not on file Sexual Orientation Not on file Last Filed Vital Signs Vital Sign Reading Time Taken Comments Blood Pressure 136/92 11/16/2018 1:23 PM EST Pulse 67 11/16/2018 1:23 PM EST Temperature 36.6 C (97.8 F) 11/08/2018 11:05 AM EST Respiratory Rate 14 11/08/2018 11:05 AM EST Oxygen Saturation - - Inhaled Oxygen Concentration - - Weight 93.4 kg (206 lb) 11/16/2018 1:23 PM EST Height 182.9 cm (6') 11/16/2018 1:23 PM EST Body Mass Index 27.94 11/16/2018 1:23 PM EST Plan of Treatment Not on file
== END 2025-05-15 23:59 | disposition home or self-care (01) ==
LOC: LAB.DROPOF 05-17 10:25
PROVIDERS: PCP Nurse Practitioner Family; Visit Provider Nurse Practitioner Family
DX: I11.0 Hypertensive heart disease with heart failure (principal); I50.20 Unspecified systolic (congestive) heart failure; J43.8 Other emphysema; I25.10 Atherosclerotic heart disease of native coronary artery without angina pectoris; E78.2 Mixed hyperlipidemia
CPT/HCPCS: 80053; 80061; 84443; 85025

== ENCOUNTER 2025-06-21 10:26 | Outpatient (CLI) | payer OTHER, SELFPAY ==
--- NOTE | 2025-06-21 11:00 | PC.NURSE ---
Pt refused 6MWT
[2025-06-21 11:40] VITALS: PULSE 69
[2025-06-21] MEDS: ALBUTEROL 0.083% 2.5 MG/3 ML NEB IH (11:40)
== END 2025-06-21 23:59 | disposition home or self-care (01) ==
LOC: RT 10:26
PROVIDERS: PCP Nurse Practitioner Family; Visit Provider Internal Medicine Pulmonary Disease
DX: J44.9 Chronic obstructive pulmonary disease, unspecified (principal); R94.2 Abnormal results of pulmonary function studies
CPT/HCPCS: 94010; 94640